=== PATIENT | male | born 1960 | race Caucasian/White ===

== ENCOUNTER 2017-04-15 09:34 | Emergency (ER) | payer MEDICARE, MEDICAID, SELFPAY | END 2017-04-15 14:55 | disposition still patient (30) | PROVIDERS: Emergency Provider Emergency Medicine; Family Provider Family Medicine; Visit Provider Emergency Medicine | DX: J11.00 Influenza due to unidentified influenza virus with unspecified type of pneumonia (principal); R04.2 Hemoptysis; E87.2 Acidosis; C34.90 Malignant neoplasm of unspecified part of unspecified bronchus or lung; J96.91 Respiratory failure, unspecified with hypoxia; Z87.891 Personal history of nicotine dependence; I48.91 Unspecified atrial fibrillation; Z79.01 Long term (current) use of anticoagulants; Z79.51 Long term (current) use of inhaled steroids; Z79.899 Other long term (current) drug therapy; Z79.82 Long term (current) use of aspirin; Z88.6 Allergy status to analgesic agent; I10 Essential (primary) hypertension; E78.5 Hyperlipidemia, unspecified; J44.9 Chronic obstructive pulmonary disease, unspecified | CPT/HCPCS: 36415; 71020; 71275; 80053; 82803; 83605; 83880; 84484; 85025; 87040; 87205; 87275; 87276; 93005; 93041; 94640; 96365; 96367; 96375; 99285; J1956; J3370; Q9967 ==

== ENCOUNTER → 2017-04-25 | Outpatient (CLI) | payer MEDICARE, MEDICAID, SELFPAY | PROVIDERS: Family Provider Family Medicine; Visit Provider Family Medicine | DX: C34.92 Malignant neoplasm of unspecified part of left bronchus or lung (principal) | CPT/HCPCS: 71020 ==

== ENCOUNTER 2017-05-08 11:45 | Outpatient (CLI) | payer MEDICARE, MEDICAID, SELFPAY ==
[2017-05-08 11:47] VITALS: BMI 31.8
[2017-05-08 12:29] LABS: Basophils % 0.5 % (0.1-2.0); Eosinophils # 0.3 K/mm3 (0.0-0.4); Eosinophils % 3.2 % (0.1-12.0); Hematocrit 41.7 % (42.0-52.0); Hemoglobin 13.6 g/dL (14.1-18.0); Lymphocytes # 1.4 K/mm3 (0.7-4.5); Lymphocytes % 16.7 K/mm3 (10-50); Mean Corpuscular HGB Conc 32.6 g/dL (31.8-35.4); Mean Platelet Volume 7.2 fl (7.4-10.4); Monocytes # 0.6 K/mm3 (0.1-1.0); Monocytes % 7.3 % (1.7-9.3); Neutrophils % 72.4 % (37.0-80.0); Platelet Count 281 K/mm3 (142-424); Red Blood Count 4.85 M/mm3 (4.60-6.20); Red Cell Distribution Width 13.7 % (11.5-17.5); White Blood Count 8.3 K/mm3 (4.8-10.8)
[2017-05-08 12:40] LABS: Alanine Aminotransferase 36 U/L (12-78); Albumin Level 2.7 gm/dL (3.4-5.0); Albumin/Globulin Ratio 0.6 (1.1-1.8); Alkaline Phosphatase 75 U/L (46-116); Anion Gap 13.4 mEq/L (5-15); Aspartate Amino Transferase 18 U/L (15-37); Bilirubin,Total 0.6 mg/dL (0.2-1.0); Blood Urea Nitrogen 11 mg/dL (7-18); Calcium 8.7 mg/dL (8.5-10.1); Carbon Dioxide 25 mmol/L (21.0-32.0); Chloride 101 mmol/L (98-107); Creatinine Clearance Estimated 128 mL/min (0-300); Creatinine,Serum 0.92 mg/dL (0.70-1.30); Estimated Glomerular Filt Rate 84 ml/min (>60); GFR (African American) 102 ML/MIN (>60); Globulin 4.3 gm/dl (1.3-3.2); Glucose 96 mg/dL (74-106); Potassium 4.4 mmoL/L (3.5-5.1); Sodium 135 mmol/L (136-145)
[2017-05-08 14:30] VITALS: BP 126/66; PULSE 87; RESP 18; TEMP 37; O2SAT 94
[2017-05-08 14:45] VITALS: BP 115/61; PULSE 85; RESP 18; O2SAT 94
[2017-05-08 15:00] VITALS: BP 112/65; PULSE 85; RESP 18; O2SAT 91
[2017-05-08 15:15] VITALS: BP 118/64; PULSE 77; RESP 20; O2SAT 91
[2017-05-08 15:30] VITALS: BP 113/59; PULSE 81; RESP 18; O2SAT 91
== END 2017-05-08 15:41 | disposition home or self-care (01) ==
LOC: INF 16:06
PROVIDERS: Family Provider Family Medicine; PCP Family Medicine; Visit Provider Internal Medicine
DX: Z51.11 Encounter for antineoplastic chemotherapy; C34.32 Malignant neoplasm of lower lobe, left bronchus or lung
CPT/HCPCS: 80053; 85025; 96413; 96415; J9267; Q0166

== ENCOUNTER → 2017-05-16 16:04 | Outpatient (CLI) | payer MEDICARE, MEDICAID, SELFPAY ==
--- NOTE | 2017-05-16 16:09 | XR_ITS ---
XR chest 2V HISTORY: ITS.REASON: CARCINOMA OF LEFT LUNG, follow-up lung cancer ORDERING PHYSICIAN: Karey Lopez MD PATIENT AGE: 56 years COMPARISON: 04/25/2017 FINDINGS: The cardiomediastinal silhouette and pulmonary vascularity are within normal limits. Left hilum remains prominent Consolidation is once again noted involving the posterior aspect of the left upper lobe somewhat less prominent than when compared to the previous exam. Overall there is slight diffuse increased density of the left chest compared to the right with some minimal blunting of the left CP angle and posterior costophrenic sulcus. COPD changes. The right lung is clear with the exception of coarsening of the peribronchial markings/chronic obstructive bronchitis.. No acute bony abnormalities. IMPRESSION: 1. Persistent but slightly improved consolidation in the posterior segment of the left upper lobe. 2. COPD with chronic changes small left effusion 3. Prominence of the left hilum as before
== END ==
PROVIDERS: PCP Family Medicine; Visit Provider Family Medicine
DX: C34.92 Malignant neoplasm of unspecified part of left bronchus or lung (principal)
CPT/HCPCS: 71046

== ENCOUNTER 2017-05-23 14:43 | Inpatient (IN) | payer MEDICARE, MEDICAID, SELFPAY ==
[2017-05-23] VITALS (7 sets, daily range): BP systolic 100–148; BP diastolic 64–80; PULSE 92–99; RESP 22–26; TEMP 36.6–37.3; O2SAT 88–96; BMI 33.5; BMI 33.8
--- NOTE | 2017-05-23 14:58 | XR_ITS ---
XR chest portable HISTORY: ITS.REASON: SOA, cough, fever, low O2 Sat ORDERING PHYSICIAN: Kulwant Martinez MD PATIENT AGE: 56 years COMPARISON: 05/16/2017 FINDINGS: There is diffuse bilateral pneumonia which is worse compared to the previous exam. Consolidation or mass once again noted in the left upper lobe. Precordial loop recorder once again noted. Prior osteotomy right distal clavicle. There is a small left pleural effusion. IMPRESSION: Worsening bilateral pneumonia with persistent dense consolidation in or mass the left upper lobe. Small left pleural effusion
--- NOTE | 2017-05-23 15:00 | HMH.EDSOB ---
ED Disposition Clinical Impression: Acute exacerbation of chronic obstructive airways disease Bilateral pneumonia Qualifiers: Pneumonia type: due to unspecified organism Lung location: unspecified part of lung Qualified Code(s): J18.9 - Pneumonia, unspecified organism Community acquired pneumonia Qualifiers: Laterality: unspecified laterality Qualified Code(s): J18.9 - Pneumonia, unspecified organism Disposition: Admitted As Inpatient Condition on Discharge: Serious Time of Disposition: 08:04 - Critical Care Critical Care Time: No Attestation: On , the high probability of a clinically significant, sudden or life threatening deterioration of the following system(s) required my full and direct attention, intervention and personal management. The time I documented below is in addition to time spent performing reported procedures but includes the following listed in this critical care notation. Medical Decision Making - Medical Records Medical records reviewed: Yes: I reviewed the patient's medical records. Vital Signs: 05/23/17 14:47 05/23/17 15:44 05/23/17 18:30 Temperature 98.2 F 99.1 F Temperature Source Oral Pulse Rate 95 H Pulse Rate [Right Brachial] 99 H 96 H Respiratory Rate 26 H 24 26 H Blood Pressure 100/80 Blood Pressure [Right Arm] 138/76 123/67 Blood Pressure Mean [Right Arm] 96 85 Blood Pressure Source [Right Arm] Automatic Cuff Automatic Cuff Blood Pressure Position [Right Arm] Sitting Sitting 02 Sat by Pulse Oximetry 88 L 96 Oxygen Delivery Method Nasal Cannula Nasal Cannula Nasal Cannula Oxygen Flow Rate (LPM) 10 10 10 - Lab Data Lab results reviewed: Yes: I reviewed the patient's lab results. Lab Results 05/23/17 14:55: WBC 6.7, RBC 4.69, Hgb 13.1 L, Hct 39.9 L, MCV 85.1, MCH 28.0, MCHC 32.9, RDW 14.5, Plt Count 328, MPV 7.8, Neut % (Auto) 80.4 H, Lymph % (Auto) 12.7, [place] % (Auto) 5.4, Eos % (Auto) 1.2, Baso % (Auto) 0.3, Neut # (Auto) 5.4, Lymph # (Auto) 0.9, [place] # (Auto) 0.4, Eos # (Auto) 0.1, Baso # (Auto) 0.0 05/23/17 14:55: Sodium 137, Potassium 3.8, Chloride 102, Carbon Dioxide 21, Anion Gap 17.8 H, BUN 11, Creatinine 0.94, Estimated Creat Clear 132, Estimated GFR 82, Est GFR ( Amer) 100, Glucose 100, Calcium 8.6, Total Bilirubin 1.0, AST 34, ALT 23, Alkaline Phosphatase 118 H, Total Protein 7.2, Albumin 2.3 L, Globulin 4.9 H, Albumin/Globulin Ratio 0.5 L 05/23/17 14:59: Specimen Source R brachial, O2 % 11 lpm, ABG pH 7.45, ABG pCO2 29.8 L, ABG pO2 86.9, ABG HCO3 20.3 L, ABG Total CO2 21.3 L, ABG O2 Saturation 96, ABG Base Excess -3.6 L, Shreyas Test N/a 05/23/17 15:45: Lactic Acid 1.8 Result diagrams: 05/31/17 09:14 05/31/17 09:14 Orders (Tests/Meds): ED MEDICATIONS Generic Name Dose Route Start Last Admin Trade Name Carol PRN Reason Stop Dose Admin Albuterol/Ipratropium 3 ml 05/24/17 07:43 06/01/17 06:30 Duoneb 3ml Neb IH 06/22/17 20:59 3 ml Q6RT KELBY Administration Aspirin 81 mg 05/23/17 21:00 05/31/17 20:10 Aspirin 81mg Enteric Coated Tablet PO 06/22/17 20:59 81 mg HS KELBY Administration Bisoprolol Fumarate 10 mg 05/29/17 09:00 05/31/17 09:08 Zebeta 5mg Tablet PO 06/28/17 08:59 10 mg DAILY KELBY Administration Digoxin 125 mcg 05/27/17 09:00 05/31/17 09:09 Digoxin 0.125mg Tablet PO 06/26/17 08:59 125 mcg DAILY KELBY Administration Diltiazem HCl 240 mg 05/27/17 09:00 05/31/17 09:09 Cardizem Er 240mg Capsule PO 06/26/17 08:59 240 mg DAILY KELBY Administration Fentanyl 25 mcg 05/25/17 09:00 05/31/17 10:38 Fentanyl 25mcg/Patch TD 06/24/17 08:59 25 mcg Q72H KELBY Administration Furosemide 40 mg 05/27/17 09:15 05/31/17 15:31 Lasix 40mg/4ml Vial IV 06/26/17 09:14 40 mg BIDL KELBY Administration Gabapentin 600 mg 05/23/17 21:00 05/31/17 20:10 Neurontin 600mg Tablet PO 06/22/17 20:59 600 mg QID KELBY Administration Lactated Ringer's 1,000 mls @ 50 mls/hr 05/23/17 18:58
--- NOTE | 2017-05-23 15:07 | ED_ITS ---
ED Disposition Clinical Impression: Acute exacerbation of chronic obstructive airways disease Bilateral pneumonia Qualifiers: Pneumonia type: due to unspecified organism Lung location: unspecified part of lung Qualified Code(s): J18.9 - Pneumonia, unspecified organism Community acquired pneumonia Qualifiers: Laterality: unspecified laterality Qualified Code(s): J18.9 - Pneumonia, unspecified organism Disposition: Admitted As Inpatient Condition on Discharge: Serious Time of Disposition: 08:04 - Critical Care Critical Care Time: No Attestation: On , the high probability of a clinically significant, sudden or life threatening deterioration of the following system(s) required my full and direct attention, intervention and personal management. The time I documented below is in addition to time spent performing reported procedures but includes the following listed in this critical care notation. Medical Decision Making - Medical Records Medical records reviewed: Yes: I reviewed the patient's medical records. Vital Signs: 05/23/17 14:47 05/23/17 15:44 05/23/17 18:30 Temperature 98.2 F 99.1 F Temperature Source Oral Pulse Rate 95 H Pulse Rate [Right Brachial] 99 H 96 H Respiratory Rate 26 H 24 26 H Blood Pressure 100/80 Blood Pressure [Right Arm] 138/76 123/67 Blood Pressure Mean [Right Arm] 96 85 Blood Pressure Source [Right Arm] Automatic Cuff Automatic Cuff Blood Pressure Position [Right Arm] Sitting Sitting 02 Sat by Pulse Oximetry 88 L 96 Oxygen Delivery Method Nasal Cannula Nasal Cannula Nasal Cannula Oxygen Flow Rate (LPM) 10 10 10 - Lab Data Lab results reviewed: Yes: I reviewed the patient's lab results. Lab Results 05/23/17 14:55: WBC 6.7, RBC 4.69, Hgb 13.1 L, Hct 39.9 L, MCV 85.1, MCH 28.0, MCHC 32.9, RDW 14.5, Plt Count 328, MPV 7.8, Neut % (Auto) 80.4 H, Lymph % (Auto ) 12.7, [place] % (Auto) 5.4, Eos % (Auto) 1.2, Baso % (Auto) 0.3, Neut # (Auto) 5.4, Lymph # (Auto) 0.9, [place] # (Auto) 0.4, Eos # (Auto) 0.1, Baso # (Auto) 0.0 05/23/17 14:55: Sodium 137, Potassium 3.8, Chloride 102, Carbon Dioxide 21, Anion Gap 17.8 H, BUN 11, Creatinine 0.94, Estimated Creat Clear 132, Estimated GFR 82, Est GFR ( Amer) 100, Glucose 100, Calcium 8.6, Total Bilirubin 1.0, AST 34, ALT 23, Alkaline Phosphatase 118 H, Total Protein 7.2, Albumin 2.3 L, Globulin 4.9 H, Albumin/Globulin Ratio 0.5 L 05/23/17 14:59: Specimen Source R brachial, O2 % 11 lpm, ABG pH 7.45, ABG pCO2 29.8 L, ABG pO2 86.9, ABG HCO3 20.3 L, ABG Total CO2 21.3 L, ABG O2 Saturation 96, ABG Base Excess -3.6 L, Shreyas Test N/a 05/23/17 15:45: Lactic Acid 1.8 Result diagrams: 05/31/17 09:14 05/31/17 09:14 Orders (Tests/Meds): ED MEDICATIONS Generic Name Dose Route Start Last Admin Trade Name Carol PRN Reason Stop Dose Admin Albuterol/Ipratropium 3 ml 05/24/17 07:43 06/01/17 06:30 Duoneb 3ml Neb IH 06/22/17 20:59 3 ml Q6RT KELBY Administration Aspirin 81 mg 05/23/17 21:00 05/31/17 20:10 Aspirin 81mg Enteric Coated Tablet PO 06/22/17 20:59 81 mg HS KELBY Administration Bisoprolol Fumarate 10 mg 05/29/17 09:00 05/31/17 09:08 Zebeta 5mg Tablet PO 06/28/17 08:59 10 mg DAILY KELBY Administration Digoxin 125 mcg 05/27/17 09:00 05/31/17 09:09 Digoxin 0.125mg Tablet PO 06/26/17 08:59 125 mcg DAILY KELBY Administration
[2017-05-23 15:35] LABS: Alanine Aminotransferase 23 U/L (12-78); Albumin Level 2.3 gm/dL (3.4-5.0); Albumin/Globulin Ratio 0.5 (1.1-1.8); Alkaline Phosphatase 118 U/L (46-116); Anion Gap 17.8 mEq/L (5-15); Aspartate Amino Transferase 34 U/L (15-37); Blood Urea Nitrogen 11 mg/dL (7-18); Calcium 8.6 mg/dL (8.5-10.1); Carbon Dioxide 21 mmol/L (21.0-32.0); Chloride 102 mmol/L (98-107); Creatinine Clearance Estimated 132 mL/min (0-300); Creatinine,Serum 0.94 mg/dL (0.70-1.30); Estimated Glomerular Filt Rate 82 ml/min (>60); GFR (African American) 100 ML/MIN (>60); Globulin 4.9 gm/dl (1.3-3.2); Glucose 100 mg/dL (74-106); Potassium 3.8 mmoL/L (3.5-5.1); Sodium 137 mmol/L (136-145); Total Protein,Serum 7.2 gm/dL (6.4-8.2)
[2017-05-23 15:38] LABS: ABG Base Excess -3.6 mmol/L (-2.4-2.3); ABG HCO3 20.3 mmhg (22.0-26.0); ABG Oxygen Saturation 96 % (90-100); ABG PCO2 29.8 mmhg (35.0-45.0); ABG PH 7.45 mmol/L (7.35-7.45); ABG PO2 86.9 mmhg (80-100); ABG TCO2 21.3 mmhg (23-27)
[2017-05-23 15:39] LABS: Source R BRACHIAL
--- NOTE | 2017-05-23 15:57 | PC.NURSE ---
O2 AT 10 LPM VIA CANNULA , IN HIS MOUTH PT CANT USE IN HIS NOSE
[2017-05-23 16:16] LABS: Lactic Acid 1.8 mmol/L (0.4-2.0)
[2017-05-23 16:22] LABS: Basophils % 0.3 % (0.1-2.0); Eosinophils # 0.1 K/mm3 (0.0-0.4); Eosinophils % 1.2 % (0.1-12.0); Hematocrit 39.9 % (42.0-52.0); Hemoglobin 13.1 g/dL (14.1-18.0); Lymphocytes # 0.9 K/mm3 (0.7-4.5); Lymphocytes % 12.7 K/mm3 (10-50); Mean Corpuscular HGB Conc 32.9 g/dL (31.8-35.4); Mean Corpuscular Volume 85.1 fl (80-94); Mean Platelet Volume 7.8 fl (7.4-10.4); Monocytes # 0.4 K/mm3 (0.1-1.0); Monocytes % 5.4 % (1.7-9.3); Neutrophils # 5.4 K/mm3 (1.8-7.8); Neutrophils % 80.4 % (37.0-80.0); Platelet Count 328 K/mm3 (142-424); Red Blood Count 4.69 M/mm3 (4.60-6.20); Red Cell Distribution Width 14.5 % (11.5-17.5); White Blood Count 6.7 K/mm3 (4.8-10.8)
--- NOTE | 2017-05-23 19:36 | P.PN_ITS ---
Internal Medicine - PN: Subj *Date: 05/23/17 *Time: 19:33 Interval history: This 36-year-old white male has a known lung carcinoma. He was hospitalized at [facility] recently with pneumonia. He has been receiving radiation and chemo treatments at . He presented in the office of [facility] today with extreme shortness of breath and hypoxia with a sat in the 70s. He was sent to the emergency room for stabilization. He was treated with IV steroids and supplemental oxygen. Oxygen came up to 90s but with the nasal O2 turned up to 10. He was started on Levaquin and vancomycin and Zosyn. He and his family report that he recently was doing better on a steroid taper but once the steroid taper had finished he resumed having fever and congestion. Exam Vital signs and Labs for Last 24 Hours: Temp Pulse Resp BP Pulse Ox 98.2 F 95 H 24 148/78 91 L 05/23/17 18:51 05/23/17 18:51 05/23/17 18:51 05/23/17 18:51 05/23/17 18:51 I & O for Last 24 hours: Intake & Output 05/21/17 05/22/17 05/23/17 05/24/17 11:59 11:59 11:59 11:59 Weight 242 lb 8 oz - Constitutional Comments: He is now on a Ventimask 50% and his saturations are holding above 90. His color is good and he is more comfortable. - *Routine HEENT Exam Comments: His tongue is fairly moist and he does not appear dehydrated. - *Routine Respiratory Exam Comments: He is tachypneic but moving air quite well at the present time. I hear some bibasilar rhonchi that are relatively subtle. - *Routine Cardiovascular Exam Present: RRR - *Routine Abdominal Exam Present: soft. Absent: tenderness - *Routine Extremities Exam Comments: He has greater than 2+ bilateral ankle edema. Assessment and Plan (1) Carcinoma, lung Current visit: Yes Status: Acute Category: Medical Code(s): C34.90 - Malignant neoplasm of unspecified part of unspecified bronchus or lung
--- NOTE | 2017-05-23 21:03 | PC.NURSE ---
Late entry; @ 1933 Dr Lopez here. No new orders
[2017-05-24] VITALS (11 sets, daily range): BP systolic 127–146; BP diastolic 68–83; PULSE 87–109; RESP 18–22; TEMP 35.8–36.9; O2SAT 85–90; BMI 34.3
--- NOTE | 2017-05-24 03:22 | PC.NURSE ---
PT RESTING AT THIS TIME. HE REMAINS ON 50%VENTI MASK WITH O2 SAT OF 90%. LUNGS ARE DIMINISHED IN THE BASES. PT REMAINS AFEBRILE AT THIS TIME. PT WAS NOTED TO HAVE 1+ EDEMA TO BLE. NO OTHER CONCENRS AT THIS TIME. WILL CONTINUE TO MONITOR.
[2017-05-24 04:23] LABS: ABG Base Excess -4.7 mmol/L (-2.4-2.3); ABG HCO3 19.6 mmhg (22.0-26.0); ABG Oxygen Saturation 92 % (90-100); ABG PCO2 29.8 mmhg (35.0-45.0); ABG PH 7.44 mmol/L (7.35-7.45); ABG PO2 64.6 mmhg (80-100); ABG TCO2 20.5 mmhg (23-27)
[2017-05-24 04:24] LABS: Allen's Test Acceptable
--- NOTE | 2017-05-24 04:42 | PC.NURSE ---
PT AMBULATED TO BATHROOM AND BECAME SOA. O2 SAT DECREASED TO 74 SHORTLY AND THEN INCREASED TO MID 80S. RT THERAPY WAS CALLED. PT O2 INCREASED TO 84% . BREATHING TX AND ABG ADMINISTERED. PT O2 RECOVERED. O2 IS 92% AT THIS TIME. PT IS RESTING IN BED AND WAS INSTRUCTED TO USE URINAL IN PLACE OF AMBULATING TO THE BATHROOM.
--- NOTE | 2017-05-24 04:55 | PC.NURSE ---
NURSE AWARE OF PATIENTS O2 LEVEL
[2017-05-24 06:54] LABS: Eosinophils % 0.2 % (0.1-12.0); Hematocrit 34.7 % (42.0-52.0); Lymphocytes # 0.4 K/mm3 (0.7-4.5); Lymphocytes % 4.2 K/mm3 (10-50); Mean Corpuscular HGB Conc 32.7 g/dL (31.8-35.4); Mean Corpuscular Hemoglobin 27.8 pg (27.0-31.2); Mean Platelet Volume 7.3 fl (7.4-10.4); Monocytes # 0.3 K/mm3 (0.1-1.0); Monocytes % 3.2 % (1.7-9.3); Neutrophils # 9.2 K/mm3 (1.8-7.8); Neutrophils % 92.4 % (37.0-80.0); Platelet Count 295 K/mm3 (142-424); Red Blood Count 4.08 M/mm3 (4.60-6.20); Red Cell Distribution Width 14.5 % (11.5-17.5)
[2017-05-24 07:11] LABS: Alanine Aminotransferase 24 U/L (12-78); Albumin Level 2.1 gm/dL (3.4-5.0); Albumin/Globulin Ratio 0.5 (1.1-1.8); Alkaline Phosphatase 111 U/L (46-116); Anion Gap 14.8 mEq/L (5-15); Aspartate Amino Transferase 37 U/L (15-37); Bilirubin,Total 0.6 mg/dL (0.2-1.0); Blood Urea Nitrogen 11 mg/dL (7-18); Calcium 8.1 mg/dL (8.5-10.1); Carbon Dioxide 23 mmol/L (21.0-32.0); Chloride 103 mmol/L (98-107); Creatinine Clearance Estimated 151 mL/min (0-300); Creatinine,Serum 0.84 mg/dL (0.70-1.30); Estimated Glomerular Filt Rate 94 ml/min (>60); GFR (African American) 114 ML/MIN (>60); Globulin 4.2 gm/dl (1.3-3.2); Glucose 162 mg/dL (74-106); Potassium 3.8 mmoL/L (3.5-5.1); Sodium 137 mmol/L (136-145); Total Protein,Serum 6.3 gm/dL (6.4-8.2)
[2017-05-24 07:18] LABS: MANUAL DIFFERENTIAL MANUAL DIFFERENTIAL (MANUAL DIFF)
--- NOTE | 2017-05-24 07:19 | P.CONPHA_ITS ---
[facility] Pharmacy VTE Monitoring - Patient Demographics Admission date: 05/23/17 Report Date: 05/24/17 Time: 07:18 Allergies/Adverse Reactions: Patient Allergies acetaminophen [From TYLENOL] Allergy (Mild, Verified 05/08/17 12:38) NA-NAUSEA/VOMITING Height: 1.8 m Weight: 111.3 kg Patient Problems: Current Active Problems Bilateral pneumonia (Acute) Community acquired pneumonia (Acute) Acute exacerbation of chronic obstructive airways disease (Acute) Carcinoma, lung (Acute) - VTE Risk Labs: VTE Related Lab Results Hgb 13.1 g/dL (14.1-18.0) L 05/23/17 14:55 Hct 39.9 % (42.0-52.0) L 05/23/17 14:55 Plt Count 328 K/mm3 (142-424) 05/23/17 14:55 BUN 11 mg/dL (7-18) 05/24/17 06:30 Creatinine 0.84 mg/dL (0.70-1.30) 05/24/17 06:30 Estimated Creat Clear 151 mL/min (0-300) 05/24/17 06:30 Was VTE Risk Assessment Performed: Yes VTE Score: 5 VTE Risk Level: Low Risk Clinical Trial Participant: No - Prophylaxis VTE Prophylaxis Ordered?: Yes Types of VTE Prophylaxis: TEDS Knee High
--- NOTE | 2017-05-24 07:24 | PC.NURSE ---
REPORT GIVEN TO Nery FLOYD W/C
[2017-05-24 07:33] LABS: Hemoglobin 11.4 g/dL (14.1-18.0)
--- NOTE | 2017-05-24 07:48 | PC.NURSE ---
REPORT HANDOFF TO CORRIE
--- NOTE | 2017-05-24 08:19 | HMH.HP ---
*Admission Date: 05/23/17 *Chief complaint: SOA, lung cancer *History of present illness: Mr. Laboy is a 36-year-old white male with known left sided lung carcinoma. He was hospitalized at [facility] recently with pneumonia. He has been receiving radiation and chemo treatments at . He presented in the office of [facility] yesterday with extreme shortness of breath and hypoxia with a sat in the 70s. He was sent to the emergency room for stabilization. He was treated with IV steroids and supplemental oxygen. His oxygen came up to the 90s but with the nasal O2 turned up to 10 liters. He was started on Levaquin and vancomycin and Zosyn. He and his family report that he recently was doing better on a steroid taper but once the steroid taper had finished, he resumed having fever and congestion. He has had a fever for the past 8 days and has been on motrin and levaquin 750mg. This am, he is still very SOA. He states he feels about the same as he did yesterday. It is even hard for him to speak d/t the SOA. He hurts all over. [facility] History Medical History: Reports:: Anxiety, Atrial Fibrillation, Cancer (left lung), Congestive Heart Failure, Chronic Obstructive Pulmonary Disease (COPD), Depression, Hypertension Denies:: Diabetes Mellitus Type 1, Diabetes Mellitus Type 2, MRSA Other Medical History: Reports: Chemotherapy, Hypothyroidism, Radiation Therapy Laterality Cases: Left: Arthroscopy Knee, Carotid Endarterectomy, Bilateral: Arthroscopy Shoulder Other Surgeries: Yes: Cancer Surgery, Other (Dental surgery, Left hip bone bx, lymph node bx, cystoscopy, largyngeal sx) Amputation: No Fractures: No Comment: Ablation for afib, Lung bx - *Social History Educational Level: Completed High School Smoking Status: Former smoker Tobacco Type: cigarettes # Packs/Day (cigarettes): 1 #Yrs smoked (if former smoker): 30 Alcohol Intake: never Alcohol Intake Frequency:: 0-2 drinks per day Substance Use Type: denies use Occupational Status: retired Housing: house Household Members: family - Psychiatric History Expresses thoughts of harming self/others: None Suicide Plan Description: No Plan Pschychiatric History:: Reports:: Anxiety, Depression *Family Hx:: Cancer, Heart Attack, Hypertension Review of Systems - Constitutional Reports body ache(s), Reports chills, Reports fatigue, Reports fever(s) - Eyes Denies blurry vision, Denies double vision - ENT Reports nasal congestion, Reports sore throat - *Cardiovascular Reports chest pain - *Respiratory Reports cough, Reports shortness of breath, Reports shortness of breath with activity, Reports wheezing - *Gastrointestinal Denies abdominal pain, Denies constipation, Denies loose stools, Denies nausea, Denies vomiting - *Genitourinary Denies difficulty urinating, Denies painful urination - *Musculoskeletal Reports back pain, Reports body aches - *Neurologic Reports headache(s), Reports dizziness Meds Home Medications Medication Instructions Recorded Confirmed Type atorvastatin 40 mg tablet 40 mg PO HS 05/01/17 05/24/17 History gabapentin 800 mg tablet 800 mg PO QID 05/01/17 05/23/17 History rivaroxaban 20 mg tablet 20 mg PO QDAY 05/01/17 05/23/17 History trazodone 100 mg tablet 100 mg PO QHS 05/01/17 05/23/17 History triamterene 50 mg capsule 50 mg PO QDAY 05/01/17 05/23/17 History Benzonatate [Benzonatate 100mg 100 mg PO TIDP PRN 05/24/17 05/24/17 History cap] Ibuprofen [Ibuprofen 600mg Tab] 600 mg PO QID 05/24/17 05/24/17 History Lidocaine HCl [Lidocaine viscous 5 ml PO DIRECTED 05/24/17 05/24/17 History 100mL bottle] Omeprazole [Omeprazole 20mg 20 mg PO DAILY 05/24/17 05/24/17 History Capsule] dilTIAZem HCl [Cartia Xt] 240 mg PO DAILY 05/24/17 05/24/17 History levoFLOXacin [Levofloxacin 750MG 750 mg PO DAILY 05/24/17 05/24/17 History Tablet] Allergies Allergy/AdvReac Type Severity Reaction Status Date / Time a
--- NOTE | 2017-05-24 08:22 | P.HP_ITS ---
*Admission Date: 05/23/17 *Chief complaint: SOA, lung cancer *History of present illness: Mr. Laboy is a 36-year-old white male with known left sided lung carcinoma. He was hospitalized at [facility] recently with pneumonia. He has been receiving radiation and chemo treatments at . He presented in the office of [facility] yesterday with extreme shortness of breath and hypoxia with a sat in the 70s. He was sent to the emergency room for stabilization. He was treated with IV steroids and supplemental oxygen. His oxygen came up to the 90s but with the nasal O2 turned up to 10 liters. He was started on Levaquin and vancomycin and Zosyn. He and his family report that he recently was doing better on a steroid taper but once the steroid taper had finished, he resumed having fever and congestion. He has had a fever for the past 8 days and has been on motrin and levaquin 750mg. This am, he is still very SOA. He states he feels about the same as he did yesterday. It is even hard for him to speak d/t the SOA. He hurts all over. [facility] History Medical History: Reports:: Anxiety, Atrial Fibrillation, Cancer (left lung), Congestive Heart Failure, Chronic Obstructive Pulmonary Disease (COPD), Depression, Hypertension Denies:: Diabetes Mellitus Type 1, Diabetes Mellitus Type 2, MRSA Other Medical History: Reports: Chemotherapy, Hypothyroidism, Radiation Therapy Laterality Cases: Left: Arthroscopy Knee, Carotid Endarterectomy, Bilateral: Arthroscopy Shoulder Other Surgeries: Yes: Cancer Surgery, Other (Dental surgery, Left hip bone bx, lymph node bx, cystoscopy, largyngeal sx) Amputation: No Fractures: No Comment: Ablation for afib, Lung bx - *Social History Educational Level: Completed High School Smoking Status: Former smoker Tobacco Type: cigarettes # Packs/Day (cigarettes): 1 #Yrs smoked (if former smoker): 30 Alcohol Intake: never Alcohol Intake Frequency:: 0-2 drinks per day Substance Use Type: denies use Occupational Status: retired Housing: house Household Members: family - Psychiatric History Expresses thoughts of harming self/others: None Suicide Plan Description: No Plan Pschychiatric History:: Reports:: Anxiety, Depression *Family Hx:: Cancer, Heart Attack, Hypertension Review of Systems - Constitutional Reports body ache(s), Reports chills, Reports fatigue, Reports fever(s) - Eyes Denies blurry vision, Denies double vision - ENT Reports nasal congestion, Reports sore throat - *Cardiovascular Reports chest pain - *Respiratory Reports cough, Reports shortness of breath, Reports shortness of breath with activity, Reports wheezing - *Gastrointestinal Denies abdominal pain, Denies constipation, Denies loose stools, Denies nausea, Denies vomiting - *Genitourinary Denies difficulty urinating, Denies painful urination - *Musculoskeletal Reports back pain, Reports body aches - *Neurologic Reports headache(s), Reports dizziness Meds Home Medications Medication Instructions Recorded Confirmed Type atorvastatin 40 mg tablet 40 mg PO HS 05/01/17 05/24/17 History gabapentin 800 mg tablet 800 mg PO QID 05/01/17 05/23/17 History rivaroxaban 20 mg tablet 20 mg PO QDAY 05/01/17 05/23/17 History trazodone 100 mg tablet 100 mg PO QHS 05/01/17 05/23/17 History triamterene 50 mg capsule 50 mg PO QDAY 05/01/17 05/23/17 History Benzonatate [Benzonatate 100mg 100 mg PO TIDP PRN 05/24/17 05/24/17 History cap] Ibuprofen [Ibuprofen 600mg Tab] 600 mg PO QID 04/30
[2017-05-24 09:01] LABS: Lymphocytes % 3 % (10-50); Monocytes % 5 % (2-9); Neutrophils % 92 % (42-76); Platelet Estimate Normal; Total Cells Counted 100
--- NOTE | 2017-05-24 11:23 | HMH.PHACONS ---
- Pharmacy Consult Date: 05/24/17 Time: 11:24 Referring provider: DR. MARR Reason for Consult:: VANCOMYCIN DOSING Allergies and ADEs:: Allergies Allergy/AdvReac Type Severity Reaction Status Date / Time acetaminophen [From TYLENOL] Allergy Mild NA-NAUSEA/V Verified 05/08/17 12:38 OMITING Home Medications:: Home Medications Medication Instructions Recorded Confirmed Type Albuterol Sulfate [Albuterol HFA 2 puffs IH QIDP PRN 05/24/17 05/24/17 History Inhaler] Atorvastatin Calcium [Atorvastatin 40 mg PO HS 05/24/17 05/24/17 History 40mg Tab] Benzonatate [Benzonatate 100mg 100 mg PO TIDP PRN 05/24/17 05/24/17 History cap] Cholecalciferol (Vitamin D3) 2,000 unit PO DAILY 05/24/17 05/24/17 History [Vitamin D3] Gabapentin [Gabapentin 800mg Tab] 800 mg PO QID 05/24/17 05/24/17 History Ibuprofen [Ibuprofen 600mg Tab] 600 mg PO QID 05/24/17 05/24/17 History LORazepam [Ativan 0.5mg tablet] 0.5 mg PO HS 05/24/17 05/24/17 History Lidocaine HCl [Lidocaine viscous 5 ml PO DIRECTED 05/24/17 05/24/17 History 100mL bottle] Lisinopril [Lisinopril 10mg Tab] 10 mg PO DAILY 05/24/17 05/24/17 History Multivitamin [Multivitamins] 1 each PO DAILY 05/24/17 05/24/17 History Omeprazole [Omeprazole 20mg 20 mg PO DAILY 05/24/17 05/24/17 History Capsule] Rivaroxaban [Xarelto] 20 mg PO DAILY 05/24/17 05/24/17 History Trazodone HCl 100 mg PO HS 05/24/17 05/24/17 History Triamterene/Hydrochlorothiazid 1 cap PO DAILY 05/24/17 05/24/17 History [Maxzide-25 tablet] dilTIAZem HCl [Cartia Xt] 240 mg PO DAILY 05/24/17 05/24/17 History fentaNYL [fentaNYL 25mcg/patch] 25 mcg TD Q72H 05/24/17 05/24/17 History levoFLOXacin [Levofloxacin 750MG 750 mg PO DAILY 05/24/17 05/24/17 History Tablet] Height: 1.8 m Weight: 111.3 kg Laboratory Results:: Laboratory Results - last 24 hr 05/24/17 04:20: O2 % 50%heriberto mask, ABG pH 7.44, ABG pCO2 29.8 L, ABG pO2 64.6 L, ABG HCO3 19.6 L, ABG Total CO2 20.5 L, ABG O2 Saturation 92, ABG Base Excess -4.7 L, Shreyas Test Acceptable 05/24/17 06:30: WBC 10.0 D, RBC 4.08 L, Hgb 11.4 L D, Hct 34.7 L, MCV 85.0, MCH 27.8, MCHC 32.7, RDW 14.5, Plt Count 295, MPV 7.3 L, Neut % (Auto) 92.4 H, Lymph % (Auto) 4.2 L, [place] % (Auto) 3.2, Eos % (Auto) 0.2, Baso % (Auto) 0.0 L, Neut # (Auto) 9.2 H, Lymph # (Auto) 0.4 L, [place] # (Auto) 0.3, Eos # (Auto) 0.0, Baso # (Auto) 0.0, Total Counted 100, Neutrophils % (Manual) 92 H, Lymphocytes % (Manual) 3 L, Monocytes % (Manual) 5, Platelet Estimate Normal, RBC Morphology Not Reportable 05/24/17 06:30: Sodium 137, Potassium 3.8, Chloride 103, Carbon Dioxide 23, Anion Gap 14.8, BUN 11, Creatinine 0.84, Estimated Creat Clear 151, Estimated GFR 94, Est GFR ( Amer) 114, Glucose 162 H D, Calcium 8.1 L, Total Bilirubin 0.6, AST 37, ALT 24, Alkaline Phosphatase 111, Total Protein 6.3 L, Albumin 2.1 L, Globulin 4.2 H, Albumin/Globulin Ratio 0.5 L Medical History: Reports:: Anxiety, Atrial Fibrillation, Cancer (left lung), Congestive Heart Failure, Chronic Obstructive Pulmonary Disease (COPD), Depression, Hypertension Denies:: Diabetes Mellitus Type 1, Diabetes Mellitus Type 2, MRSA Assessment and Plan (1) Bilateral pneumonia Current visit: Yes Status: Acute Qualifiers: Pneumonia type: due to unspecified organism Lung location: unspecified part of lung Qualified Code(s): J18.9 - Pneumonia, unspecified organism Category: Medical Code(s): J18.9 - Pneumonia, unspecified organism (2) Carcinoma, lung Current visit: Yes Status: Chronic Category: Medical Code(s): C34.90 - Malignant neoplasm of unspecified part of unspecified bronchus or lung (3) Hypertension Current visit: Yes Status: Chronic Category: Medical Code(s): I10 - Essential (primary) hypertension (4) Hypothyroidism Current visit: Yes Status: Chronic Category: Medical Code(s): E03.9 - Hypothyroidism, unspecified (5) COPD (chronic obstructive pulmonary dise
--- NOTE | 2017-05-24 16:10 | PC.NURSE ---
Pt resting in bed, no complaints this shift. Family at bedside. Venti mask in place at 50%. while eating pt is placed on NC but is unable to tolerated for long periods of time. call light is in reach. will continue to monitor
[2017-05-25] VITALS (13 sets, daily range): BP systolic 98–127; BP diastolic 70–90; PULSE 63–102; RESP 16–50; TEMP 36.4–36.9; O2SAT 87–97
--- NOTE | 2017-05-25 04:11 | PC.NURSE ---
PT O2 SATS DECLINED THESE EVENING. MD [facility] PILOT WAS NOTIFIED AND THE DECISION WAS MADE TO PLACE PT ON BIPAP. HE IS CURRENTLY ON 60%. O2 SAT IS 96%. HE HAS TOLERATED IT WELL. PT HAS DENIED ANY PAIN THIS SHIFT. V/S ARE STABLE AT THIS TIME. MEDICATIONS ADMINISTERED PER MAR. NO OTHER CONCERNS AT THIS TIME. WILL CONTINUE TO MONITOR.
--- NOTE | 2017-05-25 08:40 | HMH.ACPN2 ---
Internal Medicine - PN: Subj *Date: 05/25/17 *Time: 08:40 Interval history: Patient became hypoxic overnight and was started on BiPAP. He reports feeling better after BiPAP was started. He also needs a new Fentanyl patch today. Exam Vital signs and Labs for Last 24 Hours: Temp Pulse Resp BP Pulse Ox 98.2 F 78 22 98/70 94 L 05/25/17 07:34 05/25/17 07:34 05/25/17 07:34 05/25/17 07:34 05/25/17 07:34 Laboratory Results - last 24 hr 05/24/17 06:30: Total Counted 100, Neutrophils % (Manual) 92 H, Lymphocytes % (Manual) 3 L, Monocytes % (Manual) 5, Platelet Estimate Normal, RBC Morphology Not Reportable Vital Signs Temp Pulse Pulse Resp BP Pulse Ox 05/25/17 07:34 98.2 F 78 22 98/70 94 L 05/25/17 07:06 88 90 L 05/25/17 04:00 97.8 F 91 H 30 H 119/76 97 05/25/17 00:00 98.1 F 63 30 H 127/70 95 05/24/17 22:28 95 H 85 L 05/24/17 20:30 90 L 05/24/17 20:00 97.7 F 109 H 22 146/83 89 L 05/24/17 17:11 102 H 90 L 05/24/17 16:00 97.3 F L 106 H 18 144/77 88 L 05/24/17 11:34 96.4 F L 92 H 18 136/68 88 L 05/24/17 10:07 100 H 90 L Intake and Output 05/24/17 05/25/17 05/25/17 19:59 03:59 11:59 Intake Total 0 / 2040 Output Total 650 / 650 200 / 200 Balance 1390 / 1390 -200 / -200 Intake: Intake, Oral Amount 800 / 800 Intake, Total IV Amount 1240 / 1240 Piperacillin/Tazo 3.375 gm In 0 100 / 100 .9 % Sodium Chloride 100 ml @ 200 mls/hr IV Q6H [facility] Rx#: [id number] Pipercillin/Tazo 3.375 gm In 0. 50 / 50 9 % Sodium Chloride 50 ml @ 100 mls/hr IV Q6H [facility] Rx#:[id number] Ringers Solution,Lactated 1,000 590 / 590 ml @ 50 mls/hr IV .Q20H [facility] Rx #:[id number] Vancomycin HCl 2,000 mg In 0.9 250 / 250 % Sodium Chloride 250 ml @ 125 mls/hr IV Q24H [facility] Rx#:[id number] Vancomycin HCl 2,250 mg In 0.9 250 / 250 % Sodium Chloride 250 ml @ 125 mls/hr IV Q12H [facility] Rx#:[id number] Output: Output, Urine Amount 650 / 650 200 / 200 Other: Number of Unmeasured Voids 5 Weight 245 lb 5.992 oz Patient Weight 05/25/17 11:59 Weight 245 lb 5.992 oz I & O for Last 24 hours: Intake & Output 05/22/17 05/23/17 05/24/17 05/25/17 11:59 11:59 11:59 11:59 Intake Total 480 / 480 2040 / 2040 Output Total 1500 / 1500 850 / 850 Balance -1020 / -1020 1190 / 1190 Weight 245 lb 5.992 oz 245 lb 5.992 oz - Constitutional no acute distress - *Routine Respiratory Exam Present: accessory muscle use, wheezes (rare, overall fairly clear lungs) Assessment and Plan (1) Bilateral pneumonia Current visit: Yes Status: Acute Qualifiers: Pneumonia type: due to unspecified organism Lung location: unspecified part of lung Qualified Code(s): J18.9 - Pneumonia, unspecified organism Category: Medical Code(s): J18.9 - Pneumonia, unspecified organism (2) Carcinoma, lung Current visit: Yes Status: Chronic Category: Medical Code(s): C34.90 - Malignant neoplasm of unspecified part of unspecified bronchus or lung (3) Hypertension Current visit: Yes Status: Chronic Category: Medical Code(s): I10 - Essential (primary) hypertension (4) Hypothyroidism Current visit: Yes Status: Chronic Category: Medical Code(s): E03.9 - Hypothyroidism, unspecified (5) COPD (chronic obstructive pulmonary disease) Current visit: Yes Status: Chronic Category: Medical Code(s): J44.9 - Chronic obstructive pulmonary disease, unspecified (6) Paroxysmal A-fib Current visit: Yes Status: Chronic Category: Medical Code(s): I48.0 - Paroxysmal atrial fibrillation - Assessment and plan all Dx Assessment and Plan for all problems:: Continue current treatment, use BiPAP as needed.
--- NOTE | 2017-05-25 08:43 | P.PN_ITS ---
Internal Medicine - PN: Subj *Date: 05/25/17 *Time: 08:40 Interval history: Patient became hypoxic overnight and was started on BiPAP. He reports feeling better after BiPAP was started. He also needs a new Fentanyl patch today. Exam Vital signs and Labs for Last 24 Hours: Temp Pulse Resp BP Pulse Ox 98.2 F 78 22 98/70 94 L 05/25/17 07:34 05/25/17 07:34 05/25/17 07:34 05/25/17 07:34 05/25/17 07:34 Laboratory Results - last 24 hr 05/24/17 06:30: Total Counted 100, Neutrophils % (Manual) 92 H, Lymphocytes % ( Manual) 3 L, Monocytes % (Manual) 5, Platelet Estimate Normal, RBC Morphology Not Reportable Vital Signs Temp Pulse Pulse Resp BP Pulse Ox 05/25/17 07:34 98.2 F 78 22 98/70 94 L 05/25/17 07:06 88 90 L 05/25/17 04:00 97.8 F 91 H 30 H 119/76 97 05/25/17 00:00 98.1 F 63 30 H 127/70 95 05/24/17 22:28 95 H 85 L 05/24/17 20:30 90 L 05/24/17 20:00 97.7 F 109 H 22 146/83 89 L 05/24/17 17:11 102 H 90 L 05/24/17 16:00 97.3 F L 106 H 18 144/77 88 L 05/24/17 11:34 96.4 F L 92 H 18 136/68 88 L 05/24/17 10:07 100 H 90 L Intake and Output 05/24/17 05/25/17 05/25/17 19:59 03:59 11:59 Intake Total 0 / 2040 Output Total 650 / 650 200 / 200 Balance 1390 / 1390 -200 / -200 Intake: Intake, Oral Amount 800 / 800 Intake, Total IV Amount 1240 / 1240 Piperacillin/Tazo 3.375 gm In 0 100 / 100 .9 % Sodium Chloride 100 ml @ 200 mls/hr IV Q6H [facility] Rx#: [id number] Pipercillin/Tazo 3.375 gm In 0. 50 / 50 9 % Sodium Chloride 50 ml @ 100 mls/hr IV Q6H [facility] Rx#:[id number] Ringers Solution,Lactated 1,000 590 / 590 ml @ 50 mls/hr IV .Q20H [facility] Rx #:[id number] Vancomycin HCl 2,000 mg In 0.9 250 / 250 % Sodium Chloride 250 ml @ 125 mls/hr IV Q24H [facility] Rx#:[id number] Vancomycin HCl 2,250 mg In 0.9 250 / 250 % Sodium Chloride 250 ml @ 125 mls/hr IV Q12H [facility] Rx#:[id number] Output: Output, Urine Amount 650 / 650 200 / 200 Other: Number of Unmeasured Voids 5 Weight 245 lb 5.992 oz Patient Weight 05/25/17 11:59 Weight 245 lb 5.992 oz I & O for Last 24 hours: Intake & Output 05/22/17 05/23/17 05/24/17 05/25/17 11:59 11:59 11:59 11:59 Intake Total 480 / 480 2040 / 2040 Output Total 1500 / 1500 850 / 850 Balance -1020 / -1020 1190 / 1190 Weight 245 lb 5.992 oz 245 lb 5.992 oz - Constitutional no acute distress - *Routine Respiratory Exam Present: accessory muscle use, wheezes (rare, overall fairly clear lungs) Assessment and Plan (1) Bilateral pneumonia Current visit: Yes Status: Acute Qualifiers: Pneumonia type: due to unspecified organism Lung location: unspecified part of lung Qualified Code(s): J18.9 - Pneumonia, unspecified organism Category: Medical Code(s): J18.9 - Pneumonia, unspecified organism (2) Carcinoma, lung Current visit: Yes Status: Chronic Category: Medical Code(s): C34.90 - Malignant neoplasm of unspecified part of unspecified bron
[2017-05-25 09:11] LABS: Vancomycin,Trough 14.3 mcg/ml (10.0-20.0)
--- NOTE | 2017-05-25 09:38 | HMH.PHACONS ---
- Pharmacy Consult Date: 05/25/17 Time: 09:38 Referring provider: DR. MARR Reason for Consult:: VANCOMYCIN TROUGH LEVEL Allergies and ADEs:: Allergies Allergy/AdvReac Type Severity Reaction Status Date / Time acetaminophen [From TYLENOL] Allergy Mild NA-NAUSEA/V Verified 05/08/17 12:38 OMITING Home Medications:: Home Medications Medication Instructions Recorded Confirmed Type Albuterol Sulfate [Albuterol HFA 2 puffs IH QIDP PRN 05/24/17 05/24/17 History Inhaler] Atorvastatin Calcium [Atorvastatin 40 mg PO HS 05/24/17 05/24/17 History 40mg Tab] Benzonatate [Benzonatate 100mg 100 mg PO TIDP PRN 05/24/17 05/24/17 History cap] Cholecalciferol (Vitamin D3) 2,000 unit PO DAILY 05/24/17 05/24/17 History [Vitamin D3] Gabapentin [Gabapentin 800mg Tab] 800 mg PO QID 05/24/17 05/24/17 History Ibuprofen [Ibuprofen 600mg Tab] 600 mg PO QID 05/24/17 05/24/17 History LORazepam [Ativan 0.5mg tablet] 0.5 mg PO HS 05/24/17 05/24/17 History Lidocaine HCl [Lidocaine viscous 5 ml PO DIRECTED 05/24/17 05/24/17 History 100mL bottle] Lisinopril [Lisinopril 10mg Tab] 10 mg PO DAILY 05/24/17 05/24/17 History Multivitamin [Multivitamins] 1 each PO DAILY 05/24/17 05/24/17 History Omeprazole [Omeprazole 20mg 20 mg PO DAILY 05/24/17 05/24/17 History Capsule] Rivaroxaban [Xarelto] 20 mg PO DAILY 05/24/17 05/24/17 History Trazodone HCl 100 mg PO HS 05/24/17 05/24/17 History Triamterene/Hydrochlorothiazid 1 cap PO DAILY 05/24/17 05/24/17 History [Maxzide-25 tablet] dilTIAZem HCl [Cartia Xt] 240 mg PO DAILY 05/24/17 05/24/17 History fentaNYL [fentaNYL 25mcg/patch] 25 mcg TD Q72H 05/24/17 05/24/17 History levoFLOXacin [Levofloxacin 750MG 750 mg PO DAILY 05/24/17 05/24/17 History Tablet] Height: 1.8 m Weight: 111.3 kg Laboratory Results:: Laboratory Results - last 24 hr 05/25/17 08:24: Vancomycin Trough 14.3 Medical History: Reports:: Anxiety, Atrial Fibrillation, Cancer (left lung), Congestive Heart Failure, Chronic Obstructive Pulmonary Disease (COPD), Depression, Hypertension Denies:: Diabetes Mellitus Type 1, Diabetes Mellitus Type 2, MRSA Assessment and Plan (1) Bilateral pneumonia Current visit: Yes Status: Acute Qualifiers: Pneumonia type: due to unspecified organism Lung location: unspecified part of lung Qualified Code(s): J18.9 - Pneumonia, unspecified organism Category: Medical Code(s): J18.9 - Pneumonia, unspecified organism (2) Carcinoma, lung Current visit: Yes Status: Chronic Category: Medical Code(s): C34.90 - Malignant neoplasm of unspecified part of unspecified bronchus or lung (3) Hypertension Current visit: Yes Status: Chronic Category: Medical Code(s): I10 - Essential (primary) hypertension (4) Hypothyroidism Current visit: Yes Status: Chronic Category: Medical Code(s): E03.9 - Hypothyroidism, unspecified (5) COPD (chronic obstructive pulmonary disease) Current visit: Yes Status: Chronic Category: Medical Code(s): J44.9 - Chronic obstructive pulmonary disease, unspecified (6) Paroxysmal A-fib Current visit: Yes Status: Chronic Category: Medical Code(s): I48.0 - Paroxysmal atrial fibrillation - Assessment and plan all Dx Assessment and Plan for all problems:: BASED ON VANCOMYCIN TROUGH LEVEL AND PATIENT FACTORS, RECOMMEND CONTINUING VANCOMYCIN 2250 MG IV Q12H. PHARMACY WILL CONTINUE TO MONITOR DAILY AND ADJUST APPROPRIATE.
[2017-05-26] VITALS (21 sets, daily range): BP systolic 116–160; BP diastolic 58–106; PULSE 55–182; RESP 16–24; TEMP 35.8–36.9; O2SAT 85–96
--- NOTE | 2017-05-26 06:12 | PC.NURSE ---
PT HAS SLEPT. NO COMPLAINTS. CONTINUES ON 50 PERCENT BIPAP WITH SATS LOW TO MID 90'S. HOB ELEVATED. PT TAKES BIPAP OFF TO DRINK AND PLACES ON VENTI MASK, SATS DROP TO LOW 80'S. NO COUGH NOTED. VOIDING PER URINAL CLEAR YELLOW URINE WITH ADEQUATE OUTPUT NOTED.
[2017-05-26 07:19] LABS: Basophils % 0.1 % (0.1-2.0); Hematocrit 33.7 % (42.0-52.0); Hemoglobin 10.7 g/dL (14.1-18.0); Lymphocytes # 0.6 K/mm3 (0.7-4.5); Lymphocytes % 5.3 K/mm3 (10-50); Mean Corpuscular HGB Conc 31.9 g/dL (31.8-35.4); Mean Corpuscular Hemoglobin 27.6 pg (27.0-31.2); Mean Corpuscular Volume 86.6 fl (80-94); Mean Platelet Volume 8.2 fl (7.4-10.4); Monocytes # 0.4 K/mm3 (0.1-1.0); Neutrophils # 9.6 K/mm3 (1.8-7.8); Neutrophils % 90.6 % (37.0-80.0); Platelet Count 259 K/mm3 (142-424); Red Blood Count 3.89 M/mm3 (4.60-6.20); Red Cell Distribution Width 15.2 % (11.5-17.5); White Blood Count 10.6 K/mm3 (4.8-10.8)
[2017-05-26 07:21] LABS: MANUAL DIFFERENTIAL MANUAL DIFFERENTIAL (MANUAL DIFF)
[2017-05-26 07:22] LABS: Anion Gap 11.1 mEq/L (5-15); Blood Urea Nitrogen 19 mg/dL (7-18); Carbon Dioxide 30 mmol/L (21.0-32.0); Chloride 104 mmol/L (98-107); Creatinine Clearance Estimated 142 mL/min (0-300); Creatinine,Serum 0.89 mg/dL (0.70-1.30); Estimated Glomerular Filt Rate 88 ml/min (>60); GFR (African American) 106 ML/MIN (>60); Glucose 162 mg/dL (74-106); Potassium 5.1 mmoL/L (3.5-5.1); Sodium 140 mmol/L (136-145)
[2017-05-26 08:41] LABS: Lymphocytes % 7 % (10-50); Monocytes % 2 % (2-9); Neutrophils % 91 % (42-76); Total Cells Counted 100
[2017-05-26 08:42] LABS: Hypochromasia 1+; Platelet Estimate Normal
--- NOTE | 2017-05-26 14:06 | XR_ITS ---
XR chest portable HISTORY: Old pneumonia ITS.REASON: pneumonia ORDERING PHYSICIAN: Karey Lopez MD PATIENT AGE: 56 years COMPARISON: 05/23/2017 FINDINGS: There is cardiomegaly. Pulmonary vessels are somewhat prominent. There is diffuse bilateral alveolar opacification consistent with diffuse bilateral pneumonia which may be slightly improved. Small left effusion also suspected. Loop recorder device is present IMPRESSION: Persistent bilateral pneumonia slightly improved with CHF.
--- NOTE | 2017-05-26 14:19 | HMH.ACPN2 ---
Internal Medicine - PN: Subj *Date: 05/26/17 *Time: 14:19 Interval history: See previous note by Dr. Geronimo. The patient required BiPAP last night. He says he does not feel well. Is very alert. Exam Vital signs and Labs for Last 24 Hours: Temp Pulse Resp BP Pulse Ox 98.5 F 81 22 130/88 92 L 05/26/17 11:38 05/26/17 11:38 05/26/17 07:50 05/26/17 11:38 05/26/17 11:38 Laboratory Results - last 24 hr 05/26/17 06:15: WBC 10.6, RBC 3.89 L, Hgb 10.7 L, Hct 33.7 L, MCV 86.6, MCH 27.6, MCHC 31.9, RDW 15.2, Plt Count 259, MPV 8.2, Neut % (Auto) 90.6 H, Lymph % (Auto) 5.3 L, [place] % (Auto) 4.0, Eos % (Auto) 0.0 L, Baso % (Auto) 0.1, Neut # (Auto) 9.6 H, Lymph # (Auto) 0.6 L, [place] # (Auto) 0.4, Eos # (Auto) 0.0, Baso # (Auto) 0.0, Total Counted 100, Neutrophils % (Manual) 91 H, Lymphocytes % (Manual) 7 L, Monocytes % (Manual) 2, Platelet Estimate Normal, Hypochromasia 1+ 05/26/17 06:15: Sodium 140, Potassium 5.1 D, Chloride 104, Carbon Dioxide 30 D, Anion Gap 11.1, BUN 19 H D, Creatinine 0.89, Estimated Creat Clear 142, Estimated GFR 88, Est GFR ( Amer) 106, Glucose 162 H I & O for Last 24 hours: Intake & Output 05/24/17 05/25/17 05/26/17 05/27/17 11:59 11:59 11:59 11:59 Intake Total 480 / 480 2140 / 2140 1903 / 1903 Output Total 1500 / 1500 850 / 850 2200 / 2200 Balance -1020 / -1020 1290 / 1290 -297 / -297 Weight 245 lb 5.992 oz 245 lb 5.992 oz - Constitutional no acute distress - *Routine Respiratory Exam Comments: He is tachypneic. He is not in respiratory distress. He has bilaterally diminished breath sounds. He has some rales at the bases. His legs are still edematous. - *Routine Cardiovascular Exam Comments: Is he still in regular sinus rhythm? His rate is controlled. - *Routine Abdominal Exam Present: soft. Absent: tenderness - *Routine Extremities Exam Comments: 3+ ankle edema. Assessment and Plan (1) Bilateral pneumonia Current visit: Yes Status: Acute Qualifiers: Pneumonia type: due to unspecified organism Lung location: unspecified part of lung Qualified Code(s): J18.9 - Pneumonia, unspecified organism Category: Medical Code(s): J18.9 - Pneumonia, unspecified organism (2) Carcinoma, lung Current visit: Yes Status: Chronic Category: Medical Code(s): C34.90 - Malignant neoplasm of unspecified part of unspecified bronchus or lung (3) Hypertension Current visit: Yes Status: Chronic Category: Medical Code(s): I10 - Essential (primary) hypertension (4) Hypothyroidism Current visit: Yes Status: Chronic Category: Medical Code(s): E03.9 - Hypothyroidism, unspecified (5) COPD (chronic obstructive pulmonary disease) Current visit: Yes Status: Chronic Category: Medical Code(s): J44.9 - Chronic obstructive pulmonary disease, unspecified (6) Paroxysmal A-fib Current visit: Yes Status: Chronic Category: Medical Code(s): I48.0 - Paroxysmal atrial fibrillation (7) Respiratory failure Current visit: Yes Status: Acute Category: Medical Code(s): J96.90 - Respiratory failure, unspecified, unspecified whether with hypoxia or hypercapnia (8) Anemia of chronic disease Current visit: Yes Status: Chronic Category: Medical Code(s): D63.8 - Anemia in other chronic diseases classified elsewhere - Assessment and plan all Dx Assessment and Plan for all problems:: Check chest x-ray and EKG. Harsh BERGMAN.
--- NOTE | 2017-05-26 14:23 | P.PN_ITS ---
Internal Medicine - PN: Subj *Date: 05/26/17 *Time: 14:19 Interval history: See previous note by Dr. Geronimo. The patient required BiPAP last night. He says he does not feel well. Is very alert. Exam Vital signs and Labs for Last 24 Hours: Temp Pulse Resp BP Pulse Ox 98.5 F 81 22 130/88 92 L 05/26/17 11:38 05/26/17 11:38 05/26/17 07:50 05/26/17 11:38 05/26/17 11:38 Laboratory Results - last 24 hr 05/26/17 06:15: WBC 10.6, RBC 3.89 L, Hgb 10.7 L, Hct 33.7 L, MCV 86.6, MCH 27.6 , MCHC 31.9, RDW 15.2, Plt Count 259, MPV 8.2, Neut % (Auto) 90.6 H, Lymph % ( Auto) 5.3 L, [place] % (Auto) 4.0, Eos % (Auto) 0.0 L, Baso % (Auto) 0.1, Neut # ( Auto) 9.6 H, Lymph # (Auto) 0.6 L, [place] # (Auto) 0.4, Eos # (Auto) 0.0, Baso # ( Auto) 0.0, Total Counted 100, Neutrophils % (Manual) 91 H, Lymphocytes % (Manual ) 7 L, Monocytes % (Manual) 2, Platelet Estimate Normal, Hypochromasia 1+ 05/26/17 06:15: Sodium 140, Potassium 5.1 D, Chloride 104, Carbon Dioxide 30 D , Anion Gap 11.1, BUN 19 H D, Creatinine 0.89, Estimated Creat Clear 142, Estimated GFR 88, Est GFR ( Amer) 106, Glucose 162 H I & O for Last 24 hours: Intake & Output 05/24/17 05/25/17 05/26/17 05/27/17 11:59 11:59 11:59 11:59 Intake Total 480 / 480 2140 / 2140 1903 / 1903 Output Total 1500 / 1500 850 / 850 2200 / 2200 Balance -1020 / -1020 1290 / 1290 -297 / -297 Weight 245 lb 5.992 oz 245 lb 5.992 oz - Constitutional no acute distress - *Routine Respiratory Exam Comments: He is tachypneic. He is not in respiratory distress. He has bilaterally diminished breath sounds. He has some rales at the bases. His legs are still edematous. - *Routine Cardiovascular Exam Comments: Is he still in regular sinus rhythm? His rate is controlled. - *Routine Abdominal Exam Present: soft. Absent: tenderness - *Routine Extremities Exam Comments: 3+ ankle edema. Assessment and Plan (1) Bilateral pneumonia Current visit: Yes Status: Acute Qualifiers: Pneumonia type: due to unspecified organism Lung location: unspecified part of lung Qualified Code(s): J18.9 - Pneumonia, unspecified organism Category: Medical Code(s): J18.9 - Pneumonia, unspecified organism (2) Carcinoma, lung Current visit: Yes Status: Chronic Category: Medical Code(s): C34.90 - Malignant neoplasm of unspecified part of unspecified bronchus or lung (3) Hypertension Current visit: Yes Status: Chronic Category: Medical Code(s): I10 - Essential (primary) hypertension (4) Hypothyroidism Current visit: Yes Status: Chronic Category: Medical Code(s): E03.9 - Hypothyroidism, unspecified (5) COPD (chronic obstructive pulmonary disease) Current visit: Yes Status: Chronic Category: Medical Code(s): J44.9 - Chronic obstructive pulmonary disease, unspecified (6) Paroxysmal A-fib Current visit: Yes Status: Chronic Category: Medical Code(s): I48.0 - Paroxysmal atrial fibrillation (7) Respiratory failure Current visit: Yes Status: Acute Category: Medical Code(s): J96.90 - Respiratory failure, unspecified, unspecified whether with hypoxia or hypercapnia (8) Anemia of chronic disease Current visit: Yes Status: Chronic Category: Medical Code(s): D63.8 - Anemia in other chronic diseases classified elsewhere - Assessment and plan all Dx Assessment and Plan for all problems:: Check chest x-ray and EKG. Harsh BERGMAN.
--- NOTE | 2017-05-26 17:14 | PC.NURSE ---
1600 PATIENT TRANSFERED TO [place] FOR A.FIB WITH RVR. GIVEN 5MG BOLUS OF DILTIAZEM WITH NO RATE OR RHYTHM CHANGE. NOTIFIED DR SANTORO WHO IS COOPERATIVE EXTENSION AGENT FOR DR MARR AT 1620. PER DR SANTORO GIVE 10MG DILTIAZEM BOLUS, START DILTIAZEM GTT AT 10MG/HR TITRATE TO HR <100. DILTIAZEM GTT STARTED AT 1645 AT 10MG, TITRATED TO 15MG AT 1700 FOR HR >170, TITRATED TO 2OMG AT 1715 FOR HR >170. DR SANTORO CALLED AT 1720 TO CHECK ON PROGRESS. HE WAS INFORMED THERE WAS NO CHANGE AT THIS TIME. ORDERED ANOTHER 10MG DILTIZAEM BOLUS. WILL CONTINUE TO MONITOR
[2017-05-27] VITALS (28 sets, daily range): BP systolic 111–155; BP diastolic 62–90; PULSE 72–140; RESP 16–35; TEMP 36.3–36.4; O2SAT 77–98
--- NOTE | 2017-05-27 00:33 | PC.NURSE ---
DIGOXIN 500 MCG/2ML PULLED FROM [facility]. 1 ML WASTED. 250 MCG ADMINISTERED. VERIFIED WITH AMANDEEP RM.
[2017-05-27 06:44] LABS: Eosinophils % 0.1 % (0.1-12.0); Mean Corpuscular Hemoglobin 27.1 pg (27.0-31.2); Monocytes # 0.5 K/mm3 (0.1-1.0); Red Cell Distribution Width 14.9 % (11.5-17.5)
[2017-05-27 06:51] LABS: Basophils % 0.2 % (0.1-2.0); Hemoglobin 12.2 g/dL (14.1-18.0); Lymphocytes # 0.6 K/mm3 (0.7-4.5); Mean Corpuscular HGB Conc 31.3 g/dL (31.8-35.4); Mean Corpuscular Volume 86.7 fl (80-94); Monocytes % 3.3 % (1.7-9.3); Neutrophils # 13.3 K/mm3 (1.8-7.8); Neutrophils % 92.4 % (37.0-80.0); Platelet Count 295 K/mm3 (142-424); White Blood Count 14.4 K/mm3 (4.8-10.8)
[2017-05-27 06:52] LABS: MANUAL DIFFERENTIAL MANUAL DIFFERENTIAL (MANUAL DIFF)
[2017-05-27 06:57] LABS: Anion Gap 10.7 mEq/L (5-15); Blood Urea Nitrogen 22 mg/dL (7-18); Carbon Dioxide 34 mmol/L (21.0-32.0); Chloride 101 mmol/L (98-107); Creatinine Clearance Estimated 129 mL/min (0-300); Creatinine,Serum 0.98 mg/dL (0.70-1.30); Estimated Glomerular Filt Rate 79 ml/min (>60); GFR (African American) 95 ML/MIN (>60); Glucose 169 mg/dL (74-106); Potassium 4.7 mmoL/L (3.5-5.1); Sodium 141 mmol/L (136-145)
[2017-05-27 07:47] LABS: Lymphocytes % 9 % (10-50); Monocytes % 2 % (2-9); Neutrophils % 89 % (42-76); Platelet Estimate Normal; RBC Morphology Normal; Total Cells Counted 100
--- NOTE | 2017-05-27 08:11 | PC.NURSE ---
report received from carlos barton rn at 1822
--- NOTE | 2017-05-27 08:23 | PC.NURSE ---
Addendum entered by diane Orta RN 05/27/17 08:31: URINE OUPUT WAS 2200 INSTEAD OF 3600 Original Note: PT CONTINUES TO REMAIN ON 50% BIPAP. HE DESATS TO LOW 80S AND MID 70S WHEN OFF. PT REMAINS ON CARDIZEM GTT @ 20 MG/HR. PT HR IMPROVED THIS AM AND CARDIZEM WAS TITRATED DOWN TO 15 MG/HR, BUT PT HAD TO BE TITRATED BACK UP TO 20 MG/HR. HE CONTINUES TO BE AFIB ON TELEMETRY. B/P CONTINUES TO BE ELEVATED. PT WAS ADMINISTERED DIGOXIN 250 MCG X2. PT WAS ALSO ADMINISTERED 20 MG BOLUS OF CARDIZEM THIS SHIFT. URINE OUTPUT FOR THIS SHIFT WAS 3600 CC. NO OTHER CONCERNS AT THIS TIME. WILL CONTINUE TO MONITOR.
--- NOTE | 2017-05-27 08:30 | P.PN_ITS ---
Internal Medicine - PN: Subj *Date: 05/27/17 *Time: 08:30 Exam Vital signs and Labs for Last 24 Hours: Temp Pulse Resp BP Pulse Ox 97.4 F L 112 H 22 152/90 94 L 05/27/17 07:00 05/27/17 07:06 05/27/17 07:00 05/27/17 07:00 05/27/17 07:00 Laboratory Results - last 24 hr 05/26/17 06:15: Total Counted 100, Neutrophils % (Manual) 91 H, Lymphocytes % ( Manual) 7 L, Monocytes % (Manual) 2, Platelet Estimate Normal, Hypochromasia 1+ 05/27/17 06:05: WBC 14.4 H D, RBC 4.50 L, Hgb 12.2 L D, Hct 39.0 L, MCV 86.7, MCH 27.1, MCHC 31.3 L, RDW 14.9, Plt Count 295, MPV 8.0, Neut % (Auto) 92.4 H, Lymph % (Auto) 4.0 L, [place] % (Auto) 3.3, Eos % (Auto) 0.1, Baso % (Auto) 0.2, Neut # (Auto) 13.3 H, Lymph # (Auto) 0.6 L, [place] # (Auto) 0.5, Eos # (Auto) 0.0 , Baso # (Auto) 0.0, Total Counted 100, Neutrophils % (Manual) 89 H, Lymphocytes % (Manual) 9 L, Monocytes % (Manual) 2, Platelet Estimate Normal, RBC Morphology Normal 05/27/17 06:05: Sodium 141, Potassium 4.7, Chloride 101, Carbon Dioxide 34 H, Anion Gap 10.7, BUN 22 H, Creatinine 0.98, Estimated Creat Clear 129, Estimated GFR 79, Est GFR ( Amer) 95, Glucose 169 H I & O for Last 24 hours: Intake & Output 05/24/17 05/25/17 05/26/17 05/27/17 23:59 23:59 23:59 23:59 Intake Total 2620 / 2620 100 / 100 2983 / 2983 1448 / 1448 Output Total 2150 / 2150 1800 / 1800 3600 / 3600 2200 / 2200 Balance 470 / 470 -1700 / -1700 -617 / -617 -752 / -752 Weight 111.3 kg 111.3 kg 110.89 kg Assessment and Plan (1) Bilateral pneumonia Current visit: Yes Status: Acute Qualifiers: Pneumonia type: due to unspecified organism Lung location: unspecified part of lung Qualified Code(s): J18.9 - Pneumonia, unspecified organism Category: Medical Code(s): J18.9 - Pneumonia, unspecified organism (2) Carcinoma, lung Current visit: Yes Status: Chronic Category: Medical Code(s): C34.90 - Malignant neoplasm of unspecified part of unspecified bronchus or lung (3) Hypertension Current visit: Yes Status: Chronic Category: Medical Code(s): I10 - Essential (primary) hypertension (4) Hypothyroidism Current visit: Yes Status: Chronic Category: Medical Code(s): E03.9 - Hypothyroidism, unspecified (5) COPD (chronic obstructive pulmonary disease) Current visit: Yes Status: Chronic Category: Medical Code(s): J44.9 - Chronic obstructive pulmonary disease, unspecified (6) Paroxysmal A-fib Current visit: Yes Status: Chronic Category: Medical Code(s): I48.0 - Paroxysmal atrial fibrillation (7) Respiratory failure Current visit: Yes Status: Acute Category: Medical Code(s): J96.90 - Respiratory failure, unspecified, unspecified whether with hypoxia or hypercapnia (8) Anemia of chronic disease Current visit: Yes Status: Chronic Category: Medical Code(s): D63.8 - Anemia in other chronic diseases classified elsewhere The patient's infection will respond to the chosen ABx?: Yes Is the patient receiving the right drug, dose, and route?: Yes Could a more targeted ABx be ordered?: No
--- NOTE | 2017-05-27 08:32 | HMH.ACPN2 ---
Internal Medicine - PN: Subj *Date: 05/27/17 *Time: 08:32 Interval history: Events of last PM reviewed; PT in AT fib with rapid VR up to 190 and given boluses of cardizem and placed on a gtt; also received 2 dose of dig; this AM on O2 per NC while eating breakfast; O2 sats in the 80's while eating; ate everything for breakfast. having low back pain which is new for him; he has had for 2 days WBC's at 14.4 this AM; pt noted to be on BIPAP most of the time with O2 per mask/cannula with eating Exam Vital signs and Labs for Last 24 Hours: Temp Pulse Resp BP Pulse Ox 97.4 F L 112 H 22 152/90 94 L 05/27/17 07:00 05/27/17 07:06 05/27/17 07:00 05/27/17 07:00 05/27/17 07:00 Laboratory Results - last 24 hr 05/26/17 06:15: Total Counted 100, Neutrophils % (Manual) 91 H, Lymphocytes % (Manual) 7 L, Monocytes % (Manual) 2, Platelet Estimate Normal, Hypochromasia 1+ 05/27/17 06:05: WBC 14.4 H D, RBC 4.50 L, Hgb 12.2 L D, Hct 39.0 L, MCV 86.7, MCH 27.1, MCHC 31.3 L, RDW 14.9, Plt Count 295, MPV 8.0, Neut % (Auto) 92.4 H, Lymph % (Auto) 4.0 L, [place] % (Auto) 3.3, Eos % (Auto) 0.1, Baso % (Auto) 0.2, Neut # (Auto) 13.3 H, Lymph # (Auto) 0.6 L, [place] # (Auto) 0.5, Eos # (Auto) 0.0, Baso # (Auto) 0.0, Total Counted 100, Neutrophils % (Manual) 89 H, Lymphocytes % (Manual) 9 L, Monocytes % (Manual) 2, Platelet Estimate Normal, RBC Morphology Normal 05/27/17 06:05: Sodium 141, Potassium 4.7, Chloride 101, Carbon Dioxide 34 H, Anion Gap 10.7, BUN 22 H, Creatinine 0.98, Estimated Creat Clear 129, Estimated GFR 79, Est GFR ( Amer) 95, Glucose 169 H I & O for Last 24 hours: Intake & Output 05/24/17 05/25/17 05/26/17 05/27/17 11:59 11:59 11:59 11:59 Intake Total 480 / 480 2140 / 2140 2002 2528 / 2528 Output Total 1500 / 1500 850 / 850 2200 / 2200 5200 / 5200 Balance -1020 / -1020 1290 / 1290 -197 / -197 -2672 / -2672 Weight 245 lb 5.992 oz 245 lb 5.992 oz 244 lb 7.538 oz - Constitutional no acute distress Comments: sitting up in the bed eating breakfast with nasal O2 on - *Routine Respiratory Exam Absent: accessory muscle use Comments: sounds clear posteriorly - *Routine Abdominal Exam Present: soft, normoactive bowel sounds. Absent: tenderness - *Routine Extremities Exam Present: edema Comments: aces on bilateral lower legs - *Routine Neurological Exam Present: alert, oriented X3 Assessment and Plan (1) Bilateral pneumonia Current visit: Yes Status: Acute Qualifiers: Pneumonia type: due to unspecified organism Lung location: unspecified part of lung Qualified Code(s): J18.9 - Pneumonia, unspecified organism Category: Medical Code(s): J18.9 - Pneumonia, unspecified organism (2) Carcinoma, lung Current visit: Yes Status: Chronic Category: Medical Code(s): C34.90 - Malignant neoplasm of unspecified part of unspecified bronchus or lung (3) Hypertension Current visit: Yes Status: Chronic Category: Medical Code(s): I10 - Essential (primary) hypertension (4) Hypothyroidism Current visit: Yes Status: Chronic Category: Medical Code(s): E03.9 - Hypothyroidism, unspecified (5) COPD (chronic obstructive pulmonary disease) Current visit: Yes Status: Chronic Category: Medical Code(s): J44.9 - Chronic obstructive pulmonary disease, unspecified (6) Paroxysmal A-fib Current visit: Yes Status: Chronic Category: Medical Code(s): I48.0 - Paroxysmal atrial fibrillation (7) Respiratory failure Current visit: Yes Status: Acute Category: Medical Code(s): J96.90 - Respiratory failure, unspecified, unspecified whether with hypoxia or hypercapnia (8) Anemia of chronic disease Current visit: Yes Status: Chronic Category: Medical Code(s): D63.8 - Anemia in other chronic diseases classified elsewhere - Assessment and plan all Dx Assessment and Plan for all problems:: continue with current care; continue to try to wean from BIPA
--- NOTE | 2017-05-27 08:37 | P.PN_ITS ---
Internal Medicine - PN: Subj *Date: 05/27/17 *Time: 08:32 Interval history: Events of last PM reviewed; PT in AT fib with rapid VR up to 190 and given boluses of cardizem and placed on a gtt; also received 2 dose of dig; this AM on O2 per NC while eating breakfast; O2 sats in the 80's while eating; ate everything for breakfast. having low back pain which is new for him; he has had for 2 days WBC's at 14.4 this AM; pt noted to be on BIPAP most of the time with O2 per mask/cannula with eating Exam Vital signs and Labs for Last 24 Hours: Temp Pulse Resp BP Pulse Ox 97.4 F L 112 H 22 152/90 94 L 05/27/17 07:00 05/27/17 07:06 05/27/17 07:00 05/27/17 07:00 05/27/17 07:00 Laboratory Results - last 24 hr 05/26/17 06:15: Total Counted 100, Neutrophils % (Manual) 91 H, Lymphocytes % ( Manual) 7 L, Monocytes % (Manual) 2, Platelet Estimate Normal, Hypochromasia 1+ 05/27/17 06:05: WBC 14.4 H D, RBC 4.50 L, Hgb 12.2 L D, Hct 39.0 L, MCV 86.7, MCH 27.1, MCHC 31.3 L, RDW 14.9, Plt Count 295, MPV 8.0, Neut % (Auto) 92.4 H, Lymph % (Auto) 4.0 L, [place] % (Auto) 3.3, Eos % (Auto) 0.1, Baso % (Auto) 0.2, Neut # (Auto) 13.3 H, Lymph # (Auto) 0.6 L, [place] # (Auto) 0.5, Eos # (Auto) 0.0 , Baso # (Auto) 0.0, Total Counted 100, Neutrophils % (Manual) 89 H, Lymphocytes % (Manual) 9 L, Monocytes % (Manual) 2, Platelet Estimate Normal, RBC Morphology Normal 05/27/17 06:05: Sodium 141, Potassium 4.7, Chloride 101, Carbon Dioxide 34 H, Anion Gap 10.7, BUN 22 H, Creatinine 0.98, Estimated Creat Clear 129, Estimated GFR 79, Est GFR ( Amer) 95, Glucose 169 H I & O for Last 24 hours: Intake & Output 05/24/17 05/25/17 05/26/17 05/27/17 11:59 11:59 11:59 11:59 Intake Total 480 / 480 2140 / 2140 2002 2528 / 2528 Output Total 1500 / 1500 850 / 850 2200 / 2200 5200 / 5200 Balance -1020 / -1020 1290 / 1290 -197 / -197 -2672 / -2672 Weight 245 lb 5.992 oz 245 lb 5.992 oz 244 lb 7.538 oz - Constitutional no acute distress Comments: sitting up in the bed eating breakfast with nasal O2 on - *Routine Respiratory Exam Absent: accessory muscle use Comments: sounds clear posteriorly - *Routine Abdominal Exam Present: soft, normoactive bowel sounds. Absent: tenderness - *Routine Extremities Exam Present: edema Comments: aces on bilateral lower legs - *Routine Neurological Exam Present: alert, oriented X3 Assessment and Plan (1) Bilateral pneumonia Current visit: Yes Status: Acute Qualifiers: Pneumonia type: due to unspecified organism Lung location: unspecified part of lung Qualified Code(s): J18.9 - Pneumonia, unspecified organism Category: Medical Code(s): J18.9 - Pneumonia, unspecified organism (2) Carcinoma, lung Current visit: Yes Status: Chronic Category: Medical Code(s): C34.90 - Malignant neoplasm of unspecified part of unspecified bronchus or lung (3) Hypertension Current visit: Yes Status: Chronic Category: Medical Code(s): I10 - Essential (primary) hypertension (4) Hypothyroidism Current visit: Yes Status: Chronic Category: Medical Code(s): E03.9 - Hypothyroidism, unspecified (5) COPD (chronic obstructive pulmonary disease) Current visit: Yes Status: Chronic Category: Medical Code(s): J44.9 - Chronic obstructive pulmonary disease, unspecified (6) Paroxysmal A-fib Current visit: Yes Status: Chronic Category: Medical Code(s): I48.0 - Paroxysmal atrial fibrillation
--- NOTE | 2017-05-27 10:59 | HMH.CARDCON2 ---
History of Present Illness Consult date: 05/27/17 Requesting physician: Karey Lopez Consult reason: atrial fibrillation Chief complaint: SOA History of present illness: 56-year-old white male with history of [id number] coronary artery disease, mild cardiomyopathy with EF 45% by cardiac catheterization in 2014 was recently in 2017 diagnosed with squamous cell carcinoma of the left lung and has been undergoing chemotherapy and radiation. Patient was admitted last month at for combination of pneumonia and influenza which was treated with antibiotics and steroids. Upon the tapering off the steroids patient's fever and shortness of breath has returned and he subsequently was admitted on the of this month here and restarted on steroids along with antibiotics. Over the last 2 days the patient has developed recurrent atrial fibrillation with a rapid ventricular response requiring high-dose IV Cardizem for control. Cardiology consulted for evaluation recommendations. Review of Systems - Constitutional Reports fever(s) - *Cardiovascular Reports shortness of breath, Reports irregular heart rhythm - *Respiratory Reports shortness of breath - *Neurologic Reports headache(s), Reports dizziness [facility] [place] History Medical History: Reports:: Anxiety, Atrial Fibrillation, Cancer (left lung), Congestive Heart Failure, Chronic Obstructive Pulmonary Disease (COPD), Depression, Hypertension Denies:: Diabetes Mellitus Type 1, Diabetes Mellitus Type 2, MRSA Other Medical History: Reports: Chemotherapy, Hypothyroidism, Radiation Therapy Laterality Cases: Left: Arthroscopy Knee, Carotid Endarterectomy, Bilateral: Arthroscopy Shoulder Other Surgeries: Yes: Cancer Surgery, Other (Dental surgery, Left hip bone bx, lymph node bx, cystoscopy, largyngeal sx) Amputation: No Fractures: No - *Social History Educational Level: Completed High School Smoking Status: Former smoker Tobacco Type: cigarettes # Packs/Day (cigarettes): 1 #Yrs smoked (if former smoker): 30 Alcohol Intake: never Alcohol Intake Frequency:: 0-2 drinks per day Substance Use Type: denies use Occupational Status: retired Housing: house Household Members: family - Psychiatric History Expresses thoughts of harming self/others: None Suicide Plan Description: No Plan Pschychiatric History:: Reports:: Anxiety, Depression *Family Hx:: Cancer, Heart Attack, Hypertension Meds Home Medications Medication Instructions Recorded Confirmed Type Albuterol Sulfate [Albuterol HFA 2 puffs IH QIDP PRN 05/24/17 05/24/17 History Inhaler] Atorvastatin Calcium [Atorvastatin 40 mg PO HS 05/24/17 05/24/17 History 40mg Tab] Benzonatate [Benzonatate 100mg 100 mg PO TIDP PRN 05/24/17 05/24/17 History cap] Cholecalciferol (Vitamin D3) 2,000 unit PO DAILY 05/24/17 05/24/17 History [Vitamin D3] Gabapentin [Gabapentin 800mg Tab] 800 mg PO QID 05/24/17 05/24/17 History Ibuprofen [Ibuprofen 600mg Tab] 600 mg PO QID 05/24/17 05/24/17 History LORazepam [Ativan 0.5mg tablet] 0.5 mg PO HS 05/24/17 05/24/17 History Lidocaine HCl [Lidocaine viscous 5 ml PO DIRECTED 05/24/17 05/24/17 History 100mL bottle] Lisinopril [Lisinopril 10mg Tab] 10 mg PO DAILY 05/24/17 05/24/17 History Multivitamin [Multivitamins] 1 each PO DAILY 05/24/17 05/24/17 History Omeprazole [Omeprazole 20mg 20 mg PO DAILY 05/24/17 05/24/17 History Capsule] Rivaroxaban [Xarelto] 20 mg PO DAILY 05/24/17 05/24/17 History Trazodone HCl 100 mg PO HS 05/24/17 05/24/17 History Triamterene/Hydrochlorothiazid 1 cap PO DAILY 05/24/17 05/24/17 History [Maxzide-25 tablet] dilTIAZem HCl [Cartia Xt] 240 mg PO DAILY 05/24/17 05/24/17 History fentaNYL [fentaNYL 25mcg/patch] 25 mcg TD Q72H 05/24/17 05/24/17 History levoFLOXacin [Levofloxacin 750MG 750 mg PO DAILY 05/24/17 05/24/17 History Tablet] Allergies Allergy/AdvReac Type Severity Reaction Status Date / Time acetaminophen [From TYLENOL] Allergy
--- NOTE | 2017-05-27 11:03 | P.CONS_ITS ---
History of Present Illness Consult date: 05/27/17 Requesting physician: Karey Lopez Consult reason: atrial fibrillation Chief complaint: SOA History of present illness: 56-year-old white male with history of [id number] coronary artery disease , mild cardiomyopathy with EF 45% by cardiac catheterization in 2014 was recently in 2017 diagnosed with squamous cell carcinoma of the left lung and has been undergoing chemotherapy and radiation. Patient was admitted last month at for combination of pneumonia and influenza which was treated with antibiotics and steroids. Upon the tapering off the steroids patient's fever and shortness of breath has returned and he subsequently was admitted on the of this month here and restarted on steroids along with antibiotics. Over the last 2 days the patient has developed recurrent atrial fibrillation with a rapid ventricular response requiring high-dose IV Cardizem for control. Cardiology consulted for evaluation recommendations. Review of Systems - Constitutional Reports fever(s) - *Cardiovascular Reports shortness of breath, Reports irregular heart rhythm - *Respiratory Reports shortness of breath - *Neurologic Reports headache(s), Reports dizziness [facility] History Medical History: Reports:: Anxiety, Atrial Fibrillation, Cancer (left lung), Congestive Heart Failure, Chronic Obstructive Pulmonary Disease (COPD), Depression, Hypertension Denies:: Diabetes Mellitus Type 1, Diabetes Mellitus Type 2, MRSA Other Medical History: Reports: Chemotherapy, Hypothyroidism, Radiation Therapy Laterality Cases: Left: Arthroscopy Knee, Carotid Endarterectomy, Bilateral: Arthroscopy Shoulder Other Surgeries: Yes: Cancer Surgery, Other (Dental surgery, Left hip bone bx, lymph node bx, cystoscopy, largyngeal sx) Amputation: No Fractures: No - *Social History Educational Level: Completed High School Smoking Status: Former smoker Tobacco Type: cigarettes # Packs/Day (cigarettes): 1 #Yrs smoked (if former smoker): 30 Alcohol Intake: never Alcohol Intake Frequency:: 0-2 drinks per day Substance Use Type: denies use Occupational Status: retired Housing: house Household Members: family - Psychiatric History Expresses thoughts of harming self/others: None Suicide Plan Description: No Plan Pschychiatric History:: Reports:: Anxiety, Depression *Family Hx:: Cancer, Heart Attack, Hypertension Meds Home Medications Medication Instructions Recorded Confirmed Type Albuterol Sulfate [Albuterol HFA 2 puffs IH QIDP PRN 05/24/17 05/24/17 History Inhaler] Atorvastatin Calcium [Atorvastatin 40 mg PO HS 05/24/17 05/24/17 History 40mg Tab] Benzonatate [Benzonatate 100mg 100 mg PO TIDP PRN 05/24/17 05/24/17 History cap] Cholecalciferol (Vitamin D3) 2,000 unit PO DAILY 05/24/17 05/24/17 History [Vitamin D3] Gabapentin [Gabapentin 800mg Tab] 800 mg PO QID 05/24/17 05/24/17 History Ibuprofen [Ibuprofen 600mg Tab] 600 mg PO QID 05/24/17 05/24/17 History LORazepam [Ativan 0.5mg tablet] 0.5 mg PO HS 05/24/17 05/24/17 History Lidocaine HCl [Lidocaine viscous 5 ml PO DIRECTED 05/24/17 05/24/17 History 100mL bottle] Lisinopril [Lisinopril 10mg Tab] 10 mg PO DAILY 05/24/17 05/24/17 History Multivitamin [Multivitamins] 1 each PO DAILY 05/24/17 05/24/17 History Omeprazole [Omeprazole 20mg 20 mg PO DAILY 05/24/17 05/24/17 History Capsule] Rivaroxaban [Xarelto] 20 mg PO DAILY 05/24/17 05/24/17 History Trazod
--- NOTE | 2017-05-27 11:19 | CA_ITS ---
PROCEDURE: 2-D M-mode and color Doppler study INDICATIONS FOR THE TEST: Chest pain+ COPD+ Heart Murmur+ Tobacco Smokingex Palpitations+ Fatigue Syncope Edema+ Hypertension+Diabetes Mellitus Rheumatic Fever SOB+RICKETTS+Obesity+Hyperlipidemia+ Family History HD Additional History CAD, lung cancer, AFib, Tachycardia, Near syncope PATIENT INFORMATION HEIGHT: 70 WEIGHT: 244 GENDER: Male B/P: 152/90 2-D/M-MODE INTERPRETATION: 2-D MEASUREMENTS OBSERVED VALUES IN CMS Right Ventricular Dimension (RVDd) 2.9 Interventricular Septum (Thickness)(IVsd) 1.1 Left Ventricular Internal Dimensions(LVIDd) 4.6 Left Ventricular Posterior Wall (Thickness)(LVPWd) 1.1 Aortic Root 2.9 Aortic Cusp Separation 1.9 Left Atrial Dimensions (LAD) 3.9 2D 1. Technically difficult study because of the patient's factor and poor acoustic windows 2. The left atrium is mildly enlarged, left ventricle is normal size, probably preserved left ventricular systolic function visually estimated ejection fraction 45 % with no obvious regional wall motion abnormality in the visualized segments. 3. The right atrium and right ventricle are mildly enlarged, contractility of the right ventricle appears to be preserved. 4. The aortic valve is thickened and calcified leaflet continue to display mobility 5. The mitral valve leaflets are minimally thickened, there is mild mitral calcification present 6. The pulmonic valve is poorly visualized 7. The tricuspid valve appears to be grossly normal. 8. There is trivial pericardial effusion noted. DOPPLER INTERROGATION: Doppler interrogation of the aortic, mitral and tricuspid valvular presence of mild mitral and tricuspid regurgitation, tricuspid regurgitant jet velocity is insufficient for calculation of the right ventricular systolic pressure, diastolic parameters are inconclusive. CONCLUSION: 1. Technically difficult study because of the patient's factor and poor acoustic windows 2. The left atrium is mildly enlarged, left ventricle is normal size, visually estimated ejection fraction 45% with no obvious regional wall motion abnormality in the visualized segments. 3. Mildly enlarged right atrium and right ventricle, contractility of the right ventricle appears to be normal. 4. Thickened and calcified aortic valve without Doppler aortic stenosis aortic insufficiency. 5. Mild mitral and tricuspid regurgitation 6. No significant pericardial effusion noted.
--- NOTE | 2017-05-27 14:50 | PC.NURSE ---
pt cardizem drip was infusing at 20ml/hr at start of shift. order was received, and initiated after clarification with cardiology at 1030. pt was started on po diltiazem, digoxin, and bisoprolol. pt drip to be weaned off. pt heart rate at 1100 was noted to be 120-130. heart rate and pt were monitored. drip was able to slowly be weaned off by 1415. pt heart rate at 1452 is noted to be 84. will continue to monitor.
--- NOTE | 2017-05-27 19:24 | PC.NURSE ---
report given to meaghan laurent rn at 192
[2017-05-28] VITALS (22 sets, daily range): BP systolic 113–168; BP diastolic 48–95; PULSE 9–116; RESP 12–22; TEMP 36.2–37.2; O2SAT 87–98
--- NOTE | 2017-05-28 01:10 | PC.NURSE ---
PT IS A&OX3. HE CONTINUES WITH SOA AT REST. HE IS ON 50% BIPAP. HE HAS BEEN RESTING T/O THE NIGHT. HE REPORTS CHRONIC PAIN IN HIS BACK, ABDOMEN, AND LEGS. HE HAS BEEN VOIDING PER URINAL. URINE IS YELLOW, CLEAR. HE IS WEARING THADDEUS BANDAGES ON HIS LEGS THAT HE REPORTS HE WEARS BECAUSE OF SWELLING. TRACE EDEMA ON BLE.
--- NOTE | 2017-05-28 01:15 | PC.NURSE ---
PT IS A&OX3. HE IS NPO FOR A [facility] CONSULT. NSR ON TELEMETRY. HE RECEIVING PRN MEDICATION FOR REPORTS OF HIP PAIN. HE REPORTED THAT HIS CHEST PAIN FELT LIKE A PRESSURE. HIS SPOUSE IS AT THE BEDSIDE. HE ATE SOME SOUP UPON ADMISSION TO THE FLOOR. VSS.
--- NOTE | 2017-05-28 08:41 | HMH.ACPN2 ---
Internal Medicine - PN: Subj *Date: 05/28/17 *Time: 08:41 Interval history: He seems to be improving. His brother was visiting last night and he was quite interactive with his brother. BiPAP has been maintained. Remains in atrial fib. His heart rate is usually above 100. His blood pressure is stable. Echocardiogram is reviewed showing some left atrial enlargement along with some ventricular enlargement. Ejection fraction of 45% consistent with past studies. Note that his weight which had gotten up to 246 pounds is now down to 240 pounds after instituting twice daily Lasix. Exam Vital signs and Labs for Last 24 Hours: Temp Pulse Resp BP Pulse Ox 98.9 F 114 H 22 121/72 95 05/28/17 08:00 05/28/17 08:00 05/28/17 08:00 05/28/17 08:00 05/28/17 08:00 Selected Entries 05/23/17 14:47 05/23/17 20:11 05/23/17 21:48 Weight 240 lb 245 lb 5.992 oz 246 lb 2 oz 05/24/17 07:18 05/25/17 09:40 05/27/17 05:34 Weight 245 lb 5.992 oz 245 lb 5.992 oz 244 lb 7.538 oz 05/28/17 00:00 Weight 240 lb Laboratory Tests 05/27/17 05/27/17 06:05 06:05 WBC 14.4 H D Potassium 4.7 BUN 22 H Creatinine 0.98 I & O for Last 24 hours: Intake & Output 05/25/17 05/26/17 05/27/17 05/28/17 11:59 11:59 11:59 11:59 Intake Total 2140 / 2140 2002 / 2002 3108 / 3108 2971 / 2971 Output Total 850 / 850 2200 / 2200 6150 / 6150 6450 / 6450 Balance 1290 / 1290 -197 / -197 -3042 / -3042 -3479 / -3479 Weight 245 lb 5.992 oz 244 lb 7.538 oz 240 lb - Constitutional no acute distress Comments: Pap in place. He is alert and talkative. - *Routine Respiratory Exam Comments: Seems to be moving air well - *Routine Cardiovascular Exam Present: irregular rhythm Comments: Greater than 100 - *Routine Abdominal Exam Present: soft. Absent: tenderness - *Routine Neurological Exam Present: oriented X3, moving all extremities, normal speech. Absent: sensory deficit, motor deficit Assessment and Plan (1) Bilateral pneumonia Current visit: Yes Status: Acute Qualifiers: Pneumonia type: due to unspecified organism Lung location: unspecified part of lung Qualified Code(s): J18.9 - Pneumonia, unspecified organism Category: Medical Code(s): J18.9 - Pneumonia, unspecified organism (2) Carcinoma, lung Current visit: Yes Status: Chronic Category: Medical Code(s): C34.90 - Malignant neoplasm of unspecified part of unspecified bronchus or lung (3) Paroxysmal A-fib Current visit: Yes Status: Chronic Category: Medical Code(s): I48.0 - Paroxysmal atrial fibrillation (4) CAD (coronary artery disease) Current visit: Yes Status: Acute Category: Medical Code(s): I25.10 - Atherosclerotic heart disease of [place] coronary artery without angina pectoris (5) Respiratory failure Current visit: Yes Status: Acute Category: Medical Code(s): J96.90 - Respiratory failure, unspecified, unspecified whether with hypoxia or hypercapnia (6) Hypertension Current visit: Yes Status: Chronic Category: Medical Code(s): I10 - Essential (primary) hypertension (7) Hypothyroidism Current visit: Yes Status: Chronic Category: Medical Code(s): E03.9 - Hypothyroidism, unspecified (8) COPD (chronic obstructive pulmonary disease) Current visit: Yes Status: Chronic Category: Medical Code(s): J44.9 - Chronic obstructive pulmonary disease, unspecified (9) Anemia of chronic disease Current visit: Yes Status: Chronic Category: Medical Code(s): D63.8 - Anemia in other chronic diseases classified elsewhere - Assessment and plan all Dx Assessment and Plan for all problems:: Continue present course. The diuresis has helped. Continue antibiotics for pneumonia. Wean BiPAP as we are able to do.
--- NOTE | 2017-05-28 08:44 | P.PN_ITS ---
Internal Medicine - PN: Subj *Date: 05/28/17 *Time: 08:41 Interval history: He seems to be improving. His brother was visiting last night and he was quite interactive with his brother. BiPAP has been maintained. Remains in atrial fib. His heart rate is usually above 100. His blood pressure is stable. Echocardiogram is reviewed showing some left atrial enlargement along with some ventricular enlargement. Ejection fraction of 45% consistent with past studies. Note that his weight which had gotten up to 246 pounds is now down to 240 pounds after instituting twice daily Lasix. Exam Vital signs and Labs for Last 24 Hours: Temp Pulse Resp BP Pulse Ox 98.9 F 114 H 22 121/72 95 05/28/17 08:00 05/28/17 08:00 05/28/17 08:00 05/28/17 08:00 05/28/17 08:00 Selected Entries 05/23/17 14:47 05/23/17 20:11 05/23/17 21:48 Weight 240 lb 245 lb 5.992 oz 246 lb 2 oz 05/24/17 07:18 05/25/17 09:40 05/27/17 05:34 Weight 245 lb 5.992 oz 245 lb 5.992 oz 244 lb 7.538 oz 05/28/17 00:00 Weight 240 lb Laboratory Tests 05/27/17 05/27/17 06:05 06:05 WBC 14.4 H D Potassium 4.7 BUN 22 H Creatinine 0.98 I & O for Last 24 hours: Intake & Output 05/25/17 05/26/17 05/27/17 05/28/17 11:59 11:59 11:59 11:59 Intake Total 2140 / 2140 2002 / 2002 3108 / 3108 2971 / 2971 Output Total 850 / 850 2200 / 2200 6150 / 6150 6450 / 6450 Balance 1290 / 1290 -197 / -197 -3042 / -3042 -3479 / -3479 Weight 245 lb 5.992 oz 244 lb 7.538 oz 240 lb - Constitutional no acute distress Comments: Pap in place. He is alert and talkative. - *Routine Respiratory Exam Comments: Seems to be moving air well - *Routine Cardiovascular Exam Present: irregular rhythm Comments: Greater than 100 - *Routine Abdominal Exam Present: soft. Absent: tenderness - *Routine Neurological Exam Present: oriented X3, moving all extremities, normal speech. Absent: sensory deficit, motor deficit Assessment and Plan (1) Bilateral pneumonia Current visit: Yes Status: Acute Qualifiers: Pneumonia type: due to unspecified organism Lung location: unspecified part of lung Qualified Code(s): J18.9 - Pneumonia, unspecified organism Category: Medical Code(s): J18.9 - Pneumonia, unspecified organism (2) Carcinoma, lung Current visit: Yes Status: Chronic Category: Medical Code(s): C34.90 - Malignant neoplasm of unspecified part of unspecified bronchus or lung (3) Paroxysmal A-fib Current visit: Yes Status: Chronic Category: Medical Code(s): I48.0 - Paroxysmal atrial fibrillation (4) CAD (coronary artery disease) Current visit: Yes Status: Acute Category: Medical Code(s): I25.10 - Atherosclerotic heart disease of [place] coronary artery without angina pectoris (5) Respiratory failure Current visit: Yes Status: Acute Category: Medical Code(s): J96.90 - Respiratory failure, unspecified, unspecified whether with hypoxia or hypercapnia (6) Hypertension Current visit: Yes Status: Chronic Category: Medical Code(s): I10 - Essential (primary) hypertension (7) Hypothyroidism Current visit: Yes Status: Chronic Category: Medical Code(s): E03.9 - Hypothyroidism, unspecified (8) COPD (ch
--- NOTE | 2017-05-28 10:25 | HMH.CARDPN2 ---
Subjective PN (PG) Date: 05/28/17 Time: 10:25 Principal diagnosis: A.fib Interval history: The 6-year-old white male in bed using BiPAP in no acute distress. He continues to improve slowly. Telemetry continues to show atrial fibrillation with variable rate but around 100 beats per minute. PN Exam ([facility] Own[facility]) Vital signs: Temp Pulse Resp BP Pulse Ox 98.9 F 113 H 18 121/72 87 L 05/28/17 08:00 05/28/17 09:16 05/28/17 09:16 05/28/17 08:00 05/28/17 09:16 - Routine Respiratory Exam Present: diminished air movement - Routine Cardiovascular Exam Present: irregularly irregular A/P Progress Note ([facility]) (1) Paroxysmal A-fib Status: Chronic Assessment and plan: Patient is on bisoprolol, diltiazem and digoxin. Echocardiogram yesterday shows ejection fraction of about 45% (chronic) with left atrial size at 3.9 cm. No significant valvular heart disease. Will proceed with cardioversion later today or in a.m. Has remained on Xarelto therapy for greater than 30 days. Current Visit: Yes (2) CAD (coronary artery disease) Status: Acute Assessment and plan: Clinically stable. Current Visit: Yes (3) Bilateral pneumonia Status: Acute Current Visit: Yes (4) Carcinoma, lung Status: Chronic Assessment and plan: She still has remaining chemotherapy and radiation treatments pending. Current Visit: Yes (5) Hypertension Status: Chronic Current Visit: Yes (6) Hypothyroidism Status: Chronic Current Visit: Yes (7) COPD (chronic obstructive pulmonary disease) Status: Chronic Current Visit: Yes (8) Respiratory failure Status: Acute Current Visit: Yes (9) Anemia of chronic disease Status: Chronic Current Visit: Yes
--- NOTE | 2017-05-28 10:29 | P.PN_ITS ---
Subjective PN (PG) Date: 05/28/17 Time: 10:25 Principal diagnosis: A.fib Interval history: The 6-year-old white male in bed using BiPAP in no acute distress. He continues to improve slowly. Telemetry continues to show atrial fibrillation with variable rate but around 100 beats per minute. PN Exam ([facility]) Vital signs: Temp Pulse Resp BP Pulse Ox 98.9 F 113 H 18 121/72 87 L 05/28/17 08:00 05/28/17 09:16 05/28/17 09:16 05/28/17 08:00 05/28/17 09:16 - Routine Respiratory Exam Present: diminished air movement - Routine Cardiovascular Exam Present: irregularly irregular A/P Progress Note ([facility]) (1) Paroxysmal A-fib Status: Chronic Assessment and plan: Patient is on bisoprolol, diltiazem and digoxin. Echocardiogram yesterday shows ejection fraction of about 45% (chronic) with left atrial size at 3.9 cm. No significant valvular heart disease. Will proceed with cardioversion later today or in a.m. Has remained on Xarelto therapy for greater than 30 days. Current Visit: Yes (2) CAD (coronary artery disease) Status: Acute Assessment and plan: Clinically stable. Current Visit: Yes (3) Bilateral pneumonia Status: Acute Current Visit: Yes (4) Carcinoma, lung Status: Chronic Assessment and plan: She still has remaining chemotherapy and radiation treatments pending. Current Visit: Yes (5) Hypertension Status: Chronic Current Visit: Yes (6) Hypothyroidism Status: Chronic Current Visit: Yes (7) COPD (chronic obstructive pulmonary disease) Status: Chronic Current Visit: Yes (8) Respiratory failure Status: Acute Current Visit: Yes (9) Anemia of chronic disease Status: Chronic Current Visit: Yes
--- NOTE | 2017-05-28 17:36 | PC.NURSE ---
Lungs clear but diminished. O2 sats in the 90's while pt is on bipap. When bipap is removed pt's o2 sats drop to the 70's. He is showing afib on heart monitor w/heart rate running between 80-125. Appetite is good but it takes pt a while to complete meals as he gets SOB easily. No complaints verbalized. Will continue to monitor.
--- NOTE | 2017-05-28 19:13 | PC.NURSE ---
Report to given to S Call RN
[2017-05-29] VITALS (21 sets, daily range): BP systolic 115–145; BP diastolic 59–97; PULSE 69–136; RESP 14–24; TEMP 36.2–36.6; O2SAT 86–97
--- NOTE | 2017-05-29 03:03 | PC.NURSE ---
PT IS A&OX3. HE ATTEMPTED TO TRY AND SIT WITH 5LPM N/C. HIS O2 DROPPED TO 78% THEN INCREASED FOR A SHORT PERIOD TO 88%, AND THEN DROPPED BACK TO 78-79%. PT REPORTED FEELING LIGHTHEADED WHEN HIS O2 WAS AT 88%. HE WAS PLACED BACK ON 50% BIPAP. PT'S PULSE INCREASED TO 120S WHEN MOVING FROM A SITTING TO STANDING POSITION SO THAT HE COULD BE WEIGHED. HE IS VOIDING PER URINAL. URINE IS YELLOW, CLEAR. CONTINUES IN AFIB ON TELEMETRY WITH PULSE RANGING FROM 96-104.
--- NOTE | 2017-05-29 07:27 | HMH.ACPN2 ---
Internal Medicine - PN: Subj *Date: 05/29/17 *Time: 07:27 Interval history: Does not feel any better; did sleep; OOB to void; remains on BIPAP at 50%; eating well; bowels are moving; voiding QS remains in At Fib; plan is for cardioversion this AM Exam Vital signs and Labs for Last 24 Hours: Temp Pulse Resp BP Pulse Ox 97.1 F L 99 H 15 118/68 96 05/29/17 00:00 05/29/17 06:26 05/29/17 06:00 05/29/17 06:00 05/29/17 06:00 I & O for Last 24 hours: Intake & Output 05/26/17 05/27/17 05/28/17 05/29/17 11:59 11:59 11:59 11:59 Intake Total 2002 3108 / 3108 3311 / 3311 3279 / 3279 Output Total 2200 / 2200 6150 / 6150 8250 / 8250 3730 / 3730 Balance -197 / -197 -3042 / -3042 -4939 / -4939 -451 / -451 Weight 244 lb 7.538 oz 240 lb 220 lb Radiology Reports for the Last 24 Hours: 05/27/17 ECHO CONCLUSION: 1. Technically difficult study because of the patient's factor and poor acoustic windows 2. The left atrium is mildly enlarged, left ventricle is normal size, visually estimated ejection fraction 45% with no obvious regional wall motion abnormality in the visualized segments. 3. Mildly enlarged right atrium and right ventricle, contractility of the right ventricle appears to be normal. 4. Thickened and calcified aortic valve without Doppler aortic stenosis aortic insufficiency. 5. Mild mitral and tricuspid regurgitation 6. No significant pericardial effusion noted. - Constitutional no acute distress - *Routine Respiratory Exam Absent: wheezes Comments: decreased BS right base - *Routine Cardiovascular Exam Present: irregular rhythm - *Routine Abdominal Exam Present: soft, normoactive bowel sounds. Absent: tenderness, distended - *Routine Extremities Exam Comments: some ankle edema; much improved - *Routine Neurological Exam Present: alert, oriented X3 Assessment and Plan (1) Bilateral pneumonia Current visit: Yes Status: Acute Qualifiers: Pneumonia type: due to unspecified organism Lung location: unspecified part of lung Qualified Code(s): J18.9 - Pneumonia, unspecified organism Category: Medical Code(s): J18.9 - Pneumonia, unspecified organism (2) Carcinoma, lung Current visit: Yes Status: Chronic Category: Medical Code(s): C34.90 - Malignant neoplasm of unspecified part of unspecified bronchus or lung (3) Paroxysmal A-fib Current visit: Yes Status: Chronic Category: Medical Code(s): I48.0 - Paroxysmal atrial fibrillation (4) CAD (coronary artery disease) Current visit: Yes Status: Acute Category: Medical Code(s): I25.10 - Atherosclerotic heart disease of [place] coronary artery without angina pectoris (5) Respiratory failure Current visit: Yes Status: Acute Category: Medical Code(s): J96.90 - Respiratory failure, unspecified, unspecified whether with hypoxia or hypercapnia (6) Hypertension Current visit: Yes Status: Chronic Category: Medical Code(s): I10 - Essential (primary) hypertension (7) Hypothyroidism Current visit: Yes Status: Chronic Category: Medical Code(s): E03.9 - Hypothyroidism, unspecified (8) COPD (chronic obstructive pulmonary disease) Current visit: Yes Status: Chronic Category: Medical Code(s): J44.9 - Chronic obstructive pulmonary disease, unspecified (9) Anemia of chronic disease Current visit: Yes Status: Chronic Category: Medical Code(s): D63.8 - Anemia in other chronic diseases classified elsewhere - Assessment and plan all Dx Assessment and Plan for all problems:: continue current TX; continue to try and wean from BIPAP; plan is for cardioversion this AM
--- NOTE | 2017-05-29 07:31 | P.PN_ITS ---
Internal Medicine - PN: Subj *Date: 05/29/17 *Time: 07:27 Interval history: Does not feel any better; did sleep; OOB to void; remains on BIPAP at 50%; eating well; bowels are moving; voiding QS remains in At Fib; plan is for cardioversion this AM Exam Vital signs and Labs for Last 24 Hours: Temp Pulse Resp BP Pulse Ox 97.1 F L 99 H 15 118/68 96 05/29/17 00:00 05/29/17 06:26 05/29/17 06:00 05/29/17 06:00 05/29/17 06:00 I & O for Last 24 hours: Intake & Output 05/26/17 05/27/17 05/28/17 05/29/17 11:59 11:59 11:59 11:59 Intake Total 2002 3108 / 3108 3311 / 3311 3279 / 3279 Output Total 2200 / 2200 6150 / 6150 8250 / 8250 3730 / 3730 Balance -197 / -197 -3042 / -3042 -4939 / -4939 -451 / -451 Weight 244 lb 7.538 oz 240 lb 220 lb Radiology Reports for the Last 24 Hours: 05/27/17 ECHO CONCLUSION: 1. Technically difficult study because of the patient's factor and poor acoustic windows 2. The left atrium is mildly enlarged, left ventricle is normal size, visually estimated ejection fraction 45% with no obvious regional wall motion abnormality in the visualized segments. 3. Mildly enlarged right atrium and right ventricle, contractility of the right ventricle appears to be normal. 4. Thickened and calcified aortic valve without Doppler aortic stenosis aortic insufficiency. 5. Mild mitral and tricuspid regurgitation 6. No significant pericardial effusion noted. - Constitutional no acute distress - *Routine Respiratory Exam Absent: wheezes Comments: decreased BS right base - *Routine Cardiovascular Exam Present: irregular rhythm - *Routine Abdominal Exam Present: soft, normoactive bowel sounds. Absent: tenderness, distended - *Routine Extremities Exam Comments: some ankle edema; much improved - *Routine Neurological Exam Present: alert, oriented X3 Assessment and Plan (1) Bilateral pneumonia Current visit: Yes Status: Acute Qualifiers: Pneumonia type: due to unspecified organism Lung location: unspecified part of lung Qualified Code(s): J18.9 - Pneumonia, unspecified organism Category: Medical Code(s): J18.9 - Pneumonia, unspecified organism (2) Carcinoma, lung Current visit: Yes Status: Chronic Category: Medical Code(s): C34.90 - Malignant neoplasm of unspecified part of unspecified bronchus or lung (3) Paroxysmal A-fib Current visit: Yes Status: Chronic Category: Medical Code(s): I48.0 - Paroxysmal atrial fibrillation (4) CAD (coronary artery disease) Current visit: Yes Status: Acute Category: Medical Code(s): I25.10 - Atherosclerotic heart disease of [place] coronary artery without angina pectoris (5) Respiratory failure Current visit: Yes Status: Acute Category: Medical Code(s): J96.90 - Respiratory failure, unspecified, unspecified whether with hypoxia or hypercapnia (6) Hypertension Current visit: Yes Status: Chronic Category: Medical Code(s): I10 - Essential (primary) hypertension (7) Hypothyroidism Current visit: Yes Status: Chronic Category: Medical Code(s): E03.9 - Hypothyroidism, unspecified (8) COPD (chronic obstructive pulmonary disease) Current visit: Yes Status: Chronic Category: Medical Code(s): J44.9 - Chronic obstructive pulmonary disease, unspecified (9) Anemia of chronic disease Current visit: Yes Status: Chronic Category: Medical Code(s): D63.8
[2017-05-29 07:52] LABS: Anion Gap 6.1 mEq/L (5-15); Blood Urea Nitrogen 25 mg/dL (7-18); Carbon Dioxide 35 mmol/L (21.0-32.0); Chloride 101 mmol/L (98-107); Creatinine Clearance Estimated 134 mL/min (0-300); Creatinine,Serum 0.85 mg/dL (0.70-1.30); Estimated Glomerular Filt Rate 93 ml/min (>60); GFR (African American) 112 ML/MIN (>60); Glucose 165 mg/dL (74-106); Potassium 4.1 mmoL/L (3.5-5.1); Sodium 138 mmol/L (136-145)
[2017-05-29 07:54] LABS: Basophils % 0.2 % (0.1-2.0); Eosinophils % 0.3 % (0.1-12.0); Hematocrit 41.9 % (42.0-52.0); Hemoglobin 13.2 g/dL (14.1-18.0); Lymphocytes # 0.5 K/mm3 (0.7-4.5); Mean Corpuscular HGB Conc 31.6 g/dL (31.8-35.4); Mean Corpuscular Volume 85.6 fl (80-94); Monocytes # 0.5 K/mm3 (0.1-1.0); Monocytes % 3.3 % (1.7-9.3); Neutrophils # 14.1 K/mm3 (1.8-7.8); Neutrophils % 93.2 % (37.0-80.0); Platelet Count 324 K/mm3 (142-424); Red Blood Count 4.89 M/mm3 (4.60-6.20); Red Cell Distribution Width 15.4 % (11.5-17.5); White Blood Count 15.2 K/mm3 (4.8-10.8)
[2017-05-29 07:59] LABS: MANUAL DIFFERENTIAL MANUAL DIFFERENTIAL (MANUAL DIFF)
[2017-05-29 08:41] LABS: Lymphocytes % 3 % (10-50); Monocytes % 5 % (2-9); Neutrophils % 85 % (42-76); Total Cells Counted 100
[2017-05-29 08:42] LABS: Platelet Estimate Normal
--- NOTE | 2017-05-29 08:52 | XR_ITS ---
XR chest portable HISTORY: ITS.REASON: pneumonia ORDERING PHYSICIAN: Karey Lopez MD PATIENT AGE: 56 years COMPARISON: 05/26/2017 FINDINGS: Bilateral lower lobe pneumonia is once again noted right worse in left. This has shown some improvement on both sides. The improvement is slightly greater in the left lower lobe. CHF has improved. Loop recorder device remains in place. IMPRESSION: Persistent but slightly improved bilateral pneumonia with improvement in CHF
--- NOTE | 2017-05-29 09:14 | HMH.PHACONS ---
- Pharmacy Consult Date: 05/29/17 Time: 09:14 Referring provider: DR. MARR Reason for Consult:: VANCOMYCIN LEVEL Allergies and ADEs:: Allergies Allergy/AdvReac Type Severity Reaction Status Date / Time acetaminophen [From TYLENOL] Allergy Mild NA-NAUSEA/V Verified 05/08/17 12:38 OMITING Home Medications:: Home Medications Medication Instructions Recorded Confirmed Type Albuterol Sulfate [Albuterol HFA 2 puffs IH QIDP PRN 05/24/17 05/24/17 History Inhaler] Atorvastatin Calcium [Atorvastatin 40 mg PO HS 05/24/17 05/24/17 History 40mg Tab] Benzonatate [Benzonatate 100mg 100 mg PO TIDP PRN 05/24/17 05/24/17 History cap] Cholecalciferol (Vitamin D3) 2,000 unit PO DAILY 05/24/17 05/24/17 History [Vitamin D3] Gabapentin [Gabapentin 800mg Tab] 800 mg PO QID 05/24/17 05/24/17 History Ibuprofen [Ibuprofen 600mg Tab] 600 mg PO QID 05/24/17 05/24/17 History LORazepam [Ativan 0.5mg tablet] 0.5 mg PO HS 05/24/17 05/24/17 History Lidocaine HCl [Lidocaine viscous 5 ml PO DIRECTED 05/24/17 05/24/17 History 100mL bottle] Lisinopril [Lisinopril 10mg Tab] 10 mg PO DAILY 05/24/17 05/24/17 History Multivitamin [Multivitamins] 1 each PO DAILY 05/24/17 05/24/17 History Omeprazole [Omeprazole 20mg 20 mg PO DAILY 05/24/17 05/24/17 History Capsule] Rivaroxaban [Xarelto] 20 mg PO DAILY 05/24/17 05/24/17 History Trazodone HCl 100 mg PO HS 05/24/17 05/24/17 History Triamterene/Hydrochlorothiazid 1 cap PO DAILY 05/24/17 05/24/17 History [Maxzide-25 tablet] dilTIAZem HCl [Cartia Xt] 240 mg PO DAILY 05/24/17 05/24/17 History fentaNYL [fentaNYL 25mcg/patch] 25 mcg TD Q72H 05/24/17 05/24/17 History levoFLOXacin [Levofloxacin 750MG 750 mg PO DAILY 05/24/17 05/24/17 History Tablet] Height: 1.8 m Weight: 99.79 kg Laboratory Results:: Laboratory Results - last 24 hr 05/29/17 07:25: Vancomycin Trough 16.0 05/29/17 07:25: WBC 15.2 H, RBC 4.89, Hgb 13.2 L, Hct 41.9 L, MCV 85.6, MCH 27.0, MCHC 31.6 L, RDW 15.4, Plt Count 324, MPV 8.0, Neut % (Auto) 93.2 H, Lymph % (Auto) 3.0 L, [place] % (Auto) 3.3, Eos % (Auto) 0.3, Baso % (Auto) 0.2, Neut # (Auto) 14.1 H, Lymph # (Auto) 0.5 L, [place] # (Auto) 0.5, Eos # (Auto) 0.0, Baso # (Auto) 0.0, Total Counted 100, Neutrophils % (Manual) 85 H, Band Neutrophils % 4.0, Lymphocytes % (Manual) 3 L, Atypical Lymphs % 3.0, Monocytes % (Manual) 5, Platelet Estimate Normal 05/29/17 07:25: Sodium 138, Potassium 4.1, Chloride 101, Carbon Dioxide 35 H, Anion Gap 6.1, BUN 25 H, Creatinine 0.85, Estimated Creat Clear 134, Estimated GFR 93, Est GFR ( Amer) 112, Glucose 165 H Medical History: Reports:: Anxiety, Atrial Fibrillation, Cancer (left lung), Congestive Heart Failure, Chronic Obstructive Pulmonary Disease (COPD), Depression, Hypertension Denies:: Diabetes Mellitus Type 1, Diabetes Mellitus Type 2, MRSA Assessment and Plan (1) Bilateral pneumonia Current visit: Yes Status: Acute Qualifiers: Pneumonia type: due to unspecified organism Lung location: unspecified part of lung Qualified Code(s): J18.9 - Pneumonia, unspecified organism Category: Medical Code(s): J18.9 - Pneumonia, unspecified organism (2) Carcinoma, lung Current visit: Yes Status: Chronic Category: Medical Code(s): C34.90 - Malignant neoplasm of unspecified part of unspecified bronchus or lung (3) Paroxysmal A-fib Current visit: Yes Status: Chronic Category: Medical Code(s): I48.0 - Paroxysmal atrial fibrillation (4) CAD (coronary artery disease) Current visit: Yes Status: Acute Category: Medical Code(s): I25.10 - Atherosclerotic heart disease of [place] coronary artery without angina pectoris (5) Respiratory failure Current visit: Yes Status: Acute Category: Medical Code(s): J96.90 - Respiratory failure, unspecified, unspecified whether with hypoxia or hypercapnia (6) Hypertension Current visit: Yes Status: Chronic Category: Medical Code(s):
--- NOTE | 2017-05-29 09:36 | HMH.CARDPN2 ---
Subjective PN (PG) Date: 05/29/17 Time: 09:00 Principal diagnosis: A.fib Interval history: The 56-year-old white male in bed in no acute distress. He continues to improve slowly. Telemetry continues to show atrial fibrillation with variable rate but around 100 beats per minute. She currently on nasal cannula. He continues to have some shortness of breath. Cardioversion was considered for today but in light of the patient's continued shortness of breath will be postponed. PN Exam ([facility]) Vital signs: Temp Pulse Resp BP Pulse Ox 97.9 F 113 H 16 120/75 96 05/29/17 08:00 05/29/17 08:00 05/29/17 08:00 05/29/17 08:00 05/29/17 08:00 - Routine Respiratory Exam Present: rhonchi, diminished air movement - Routine Cardiovascular Exam Present: irregularly irregular A/P Progress Note ([facility]) (1) Paroxysmal A-fib Status: Chronic Assessment and plan: 10 year Xarelto therapy. Postpone cardioversion until later date until pulmonary status has improved. Current Visit: Yes (2) CAD (coronary artery disease) Status: Acute Assessment and plan: Likely stable Current Visit: Yes (3) Bilateral pneumonia Status: Acute Current Visit: Yes (4) Carcinoma, lung Status: Chronic Current Visit: Yes (5) Hypertension Status: Chronic Current Visit: Yes (6) Hypothyroidism Status: Chronic Current Visit: Yes (7) COPD (chronic obstructive pulmonary disease) Status: Chronic Current Visit: Yes (8) Respiratory failure Status: Acute Current Visit: Yes (9) Anemia of chronic disease Status: Chronic Current Visit: Yes
--- NOTE | 2017-05-29 13:27 | PC.NURSE ---
Left message with Marielle for Dr Lopez that patient has requested something for heartburn.
--- NOTE | 2017-05-29 15:31 | PC.NURSE ---
Pt requested to talk with the corporate consultant flattening press operator in the am pertaining to some concerns he had weighing on his mind. Pt verbalized concern to this nurse that he has a 9 year old grandson that he has custody of that relies on him for care. He is concerned with his prognosis and his ability to continue to do this. He states his daughter will not allow him to express his concerns to her because she doesn't want to hear it . manager call center flattening press operator was called and arrived at approx 1130 and stayed with pt until approx 1330. Lungs are clear and diminished. O2 sats have been in low 90's on venti 15 lpm. He has been on the venti the majority of the day. He was up to the bedside commode for bowel movement, o2 sats dropped to low 80's w/exertion. Abd is soft and non tender, bowel sounds hypo. Afib showing on telemetry w/HR ranging from 80's - 130's. Offered to assist pt with bath today, he refused stating I promise i'll do it tomorrow, I just don't feel like it today . notified that pt was requesting something for heartburn . One time dose of maalox ordered and administered along with scheduled omeprazole. Will continue to monitor.
--- NOTE | 2017-05-29 19:14 | PC.NURSE ---
report given to Ray Chandra RN
[2017-05-30] VITALS (23 sets, daily range): BP systolic 91–135; BP diastolic 52–87; PULSE 75–141; RESP 12–26; TEMP 36.2–36.7; O2SAT 86–97
--- NOTE | 2017-05-30 08:03 | PC.NURSE ---
Not much changed with pt during my shift. In and out of controlled afib. Following 2100 med pass pt voiced he was going to sleep and he slept well. Wore bipap all shift until this am when RT switched him over to 50% venti. Pt remained safe during my care.
--- NOTE | 2017-05-30 08:30 | HMH.CARDPN2 ---
Subjective PN (PG) Date: 05/30/17 Time: 08:15 Principal diagnosis: A.fib Interval history: The 56-year-old white male in bed in no acute distress. He continues to improve slowly. Telemetry continues to show atrial fibrillation with variable rate but around 100 beats per minute. He currently on Ventimask with O2 sats in the high 80s when walking. He continues to have some shortness of breath. Cardioversion was considered but in light of the patient's continued shortness of breath and compromise respiratory status, it will be postponed. PN Exam ([facility] Owned) Vital signs: Temp Pulse Resp BP Pulse Ox 97.2 F L 117 H 15 116/70 93 L 05/30/17 03:48 05/30/17 06:47 05/30/17 05:25 05/30/17 05:25 05/30/17 06:37 - Routine Respiratory Exam Present: diminished air movement. Absent: wheezes - Routine Cardiovascular Exam Present: irregularly irregular A/P Progress Note ([facility] Owned) (1) Paroxysmal A-fib Status: Chronic Assessment and plan: Continue beta-phoebe, digoxin and diltiazem. He remains on Xarelto therapy. Current Visit: Yes (2) CAD (coronary artery disease) Status: Acute Assessment and plan: Clinically stable. Current Visit: Yes (3) Bilateral pneumonia Status: Acute Current Visit: Yes (4) Carcinoma, lung Status: Chronic Current Visit: Yes (5) Hypertension Status: Chronic Current Visit: Yes (6) Hypothyroidism Status: Chronic Current Visit: Yes (7) COPD (chronic obstructive pulmonary disease) Status: Chronic Current Visit: Yes (8) Respiratory failure Status: Acute Current Visit: Yes (9) Anemia of chronic disease Status: Chronic Current Visit: Yes
--- NOTE | 2017-05-30 08:33 | P.PN_ITS ---
Subjective PN (PG) Date: 05/30/17 Time: 08:15 Principal diagnosis: A.fib Interval history: The 56-year-old white male in bed in no acute distress. He continues to improve slowly. Telemetry continues to show atrial fibrillation with variable rate but around 100 beats per minute. He currently on Ventimask with O2 sats in the high 80s when walking. He continues to have some shortness of breath. Cardioversion was considered but in light of the patient's continued shortness of breath and compromise respiratory status, it will be postponed. PN Exam ([facility] Owned) Vital signs: Temp Pulse Resp BP Pulse Ox 97.2 F L 117 H 15 116/70 93 L 05/30/17 03:48 05/30/17 06:47 05/30/17 05:25 05/30/17 05:25 05/30/17 06:37 - Routine Respiratory Exam Present: diminished air movement. Absent: wheezes - Routine Cardiovascular Exam Present: irregularly irregular A/P Progress Note ([facility] Owned) (1) Paroxysmal A-fib Status: Chronic Assessment and plan: Continue beta-phoebe, digoxin and diltiazem. He remains on Xarelto therapy. Current Visit: Yes (2) CAD (coronary artery disease) Status: Acute Assessment and plan: Clinically stable. Current Visit: Yes (3) Bilateral pneumonia Status: Acute Current Visit: Yes (4) Carcinoma, lung Status: Chronic Current Visit: Yes (5) Hypertension Status: Chronic Current Visit: Yes (6) Hypothyroidism Status: Chronic Current Visit: Yes (7) COPD (chronic obstructive pulmonary disease) Status: Chronic Current Visit: Yes (8) Respiratory failure Status: Acute Current Visit: Yes (9) Anemia of chronic disease Status: Chronic Current Visit: Yes
--- NOTE | 2017-05-30 19:48 | P.PN_ITS ---
Internal Medicine - PN: Subj *Date: 05/30/17 *Time: 19:45 Interval history: The patient was seen on rounds this morning. He is seen again on rounds this evening. He has shown some slight improvement throughout this day. He has unable to stay off of BiPAP more. He is getting sats of 90-95 with Ventimask. He drops down in the high 80s when he is using the nasal cannula at meals. Exam Vital signs and Labs for Last 24 Hours: Temp Pulse Resp BP Pulse Ox 97.7 F 106 H 20 128/71 91 L 05/30/17 08:00 05/30/17 17:02 05/30/17 08:00 05/30/17 08:00 05/30/17 08:00 I & O for Last 24 hours: Intake & Output 05/28/17 05/29/17 05/30/17 05/31/17 11:59 11:59 11:59 11:59 Intake Total 3311 / 3311 3859 / 3859 3146 / 3146 Output Total 8250 / 8250 4130 / 4130 4400 / 4400 700 / 700 Balance -4939 / -4939 -271 / -271 -1254 / -1254 -700 / -700 Weight 240 lb 220 lb 239 lb 14.476 oz - Constitutional no acute distress - *Routine Respiratory Exam Present: decreased breath sounds Comments: But moving air in the upper air ovalles quite well. - *Routine Cardiovascular Exam Present: irregularly irregular (Rate in the 100s usually) - *Routine Extremities Exam Comments: He now has minimal edema. We can discontinue Eduardo wraps. Assessment and Plan (1) Bilateral pneumonia Current visit: Yes Status: Acute Qualifiers: Pneumonia type: due to unspecified organism Lung location: unspecified part of lung Qualified Code(s): J18.9 - Pneumonia, unspecified organism Category: Medical Code(s): J18.9 - Pneumonia, unspecified organism (2) Carcinoma, lung Current visit: Yes Status: Chronic Category: Medical Code(s): C34.90 - Malignant neoplasm of unspecified part of unspecified bronchus or lung (3) Paroxysmal A-fib Current visit: Yes Status: Chronic Category: Medical Code(s): I48.0 - Paroxysmal atrial fibrillation (4) CAD (coronary artery disease) Current visit: Yes Status: Acute Category: Medical Code(s): I25.10 - Atherosclerotic heart disease of [place] coronary artery without angina pectoris (5) Respiratory failure Current visit: Yes Status: Acute Category: Medical Code(s): J96.90 - Respiratory failure, unspecified, unspecified whether with hypoxia or hypercapnia (6) Hypertension Current visit: Yes Status: Chronic Category: Medical Code(s): I10 - Essential (primary) hypertension (7) Hypothyroidism Current visit: Yes Status: Chronic Category: Medical Code(s): E03.9 - Hypothyroidism, unspecified (8) COPD (chronic obstructive pulmonary disease) Current visit: Yes Status: Chronic Category: Medical Code(s): J44.9 - Chronic obstructive pulmonary disease, unspecified (9) Anemia of chronic disease Current visit: Yes Status: Chronic Category: Medical Code(s): D63.8 - Anemia in other chronic diseases classified elsewhere - Assessment and plan all Dx Assessment and Plan for all problems:: Continue respiratory support as dictated by his clinical condition.
[2017-05-31] VITALS (17 sets, daily range): BP systolic 101–141; BP diastolic 53–76; PULSE 79–128; RESP 13–25; TEMP 36.2–36.6; O2SAT 88–100
--- NOTE | 2017-05-31 08:43 | PC.NURSE ---
Pt had a better night tonight versus last night. He was able to use Venturi mask all night and did not have to put on bipap. Oxygenation remained above 90%. Iv's infusing well, nothing acute to report. Pt remained safe and stable throughout my care.Report given to Laya Sinclair RN at shift change to her satisfaction.
--- NOTE | 2017-05-31 08:48 | HMH.ACPN2 ---
Internal Medicine - PN: Subj *Date: 05/31/17 *Time: 08:48 Interval history: Mr. Laboy is doing better. He is depending more on a Ventimask and occasionally using nasal cannula. With the nasal cannula he can drop into the 80s but with a Ventimask he stays in the 90s. He obviously feels better. He complains of feeling shaky. He is comfortable while he is sitting and eating. He is without leg edema and his lungs are much clearer. Exam Vital signs and Labs for Last 24 Hours: Temp Pulse Resp BP Pulse Ox 97.1 F L 101 H 25 H 119/68 93 L 05/31/17 06:00 05/31/17 07:54 05/31/17 07:05 05/31/17 07:05 05/31/17 07:54 I & O for Last 24 hours: Intake & Output 05/28/17 05/29/17 05/30/17 05/31/17 11:59 11:59 11:59 11:59 Intake Total 3311 / 3311 3859 / 3859 3246 / 3246 1322 / 1322 Output Total 8250 / 8250 4130 / 4130 4400 / 4400 1200 / 1200 Balance -4939 / -4939 -271 / -271 -1154 / -1154 122 / 122 Weight 240 lb 220 lb 239 lb 14.476 oz - *Routine HEENT Exam Comments: He has an excoriation on the bridge of his nose from the BiPAP - *Routine Respiratory Exam Comments: Better air movement. Decreased breath sounds in the left upper lobe in the right lower lobe. - *Routine Cardiovascular Exam Comments: Atrial fibrillation persists. Rate is usually above 100. - *Routine Abdominal Exam Present: soft. Absent: tenderness - *Routine Skin Exam Present: intact - *Routine Neurological Exam Present: alert, oriented X3 Assessment and Plan (1) Bilateral pneumonia Current visit: Yes Status: Acute Qualifiers: Pneumonia type: due to unspecified organism Lung location: unspecified part of lung Qualified Code(s): J18.9 - Pneumonia, unspecified organism Category: Medical Code(s): J18.9 - Pneumonia, unspecified organism (2) Carcinoma, lung Current visit: Yes Status: Chronic Category: Medical Code(s): C34.90 - Malignant neoplasm of unspecified part of unspecified bronchus or lung (3) Paroxysmal A-fib Current visit: Yes Status: Chronic Category: Medical Code(s): I48.0 - Paroxysmal atrial fibrillation (4) CAD (coronary artery disease) Current visit: Yes Status: Acute Category: Medical Code(s): I25.10 - Atherosclerotic heart disease of [place] coronary artery without angina pectoris (5) Respiratory failure Current visit: Yes Status: Acute Category: Medical Code(s): J96.90 - Respiratory failure, unspecified, unspecified whether with hypoxia or hypercapnia (6) Hypertension Current visit: Yes Status: Chronic Category: Medical Code(s): I10 - Essential (primary) hypertension (7) Hypothyroidism Current visit: Yes Status: Chronic Category: Medical Code(s): E03.9 - Hypothyroidism, unspecified (8) COPD (chronic obstructive pulmonary disease) Current visit: Yes Status: Chronic Category: Medical Code(s): J44.9 - Chronic obstructive pulmonary disease, unspecified (9) Anemia of chronic disease Current visit: Yes Status: Chronic Category: Medical Code(s): D63.8 - Anemia in other chronic diseases classified elsewhere - Assessment and plan all Dx Assessment and Plan for all problems:: He could be moved to medical floor depending on bed availability. He needs to continue with registered nurse cardiac.
[2017-05-31 09:47] LABS: Anion Gap 9.2 mEq/L (5-15); Blood Urea Nitrogen 28 mg/dL (7-18); Carbon Dioxide 34 mmol/L (21.0-32.0); Chloride 98 mmol/L (98-107); Creatinine Clearance Estimated 109 mL/min (0-300); Creatinine,Serum 1.14 mg/dL (0.70-1.30); Estimated Glomerular Filt Rate 66 ml/min (>60); GFR (African American) 80 ML/MIN (>60); Glucose 226 mg/dL (74-106); Potassium 4.2 mmoL/L (3.5-5.1); Sodium 137 mmol/L (136-145)
[2017-05-31 10:12] LABS: Basophils % 0.1 % (0.1-2.0); Eosinophils % 0.2 % (0.1-12.0); Hematocrit 46.6 % (42.0-52.0); Hemoglobin 14.7 g/dL (14.1-18.0); Lymphocytes # 0.3 K/mm3 (0.7-4.5); Lymphocytes % 2.3 K/mm3 (10-50); Mean Corpuscular HGB Conc 31.5 g/dL (31.8-35.4); Mean Corpuscular Hemoglobin 27.5 pg (27.0-31.2); Mean Corpuscular Volume 87.3 fl (80-94); Mean Platelet Volume 7.9 fl (7.4-10.4); Monocytes # 0.4 K/mm3 (0.1-1.0); Monocytes % 3.3 % (1.7-9.3); Neutrophils # 12.6 K/mm3 (1.8-7.8); Neutrophils % 94.2 % (37.0-80.0); Platelet Count 396 K/mm3 (142-424); Red Blood Count 5.34 M/mm3 (4.60-6.20); Red Cell Distribution Width 15.8 % (11.5-17.5); White Blood Count 13.4 K/mm3 (4.8-10.8)
[2017-05-31 10:30] LABS: MANUAL DIFFERENTIAL MANUAL DIFFERENTIAL (MANUAL DIFF)
--- NOTE | 2017-05-31 10:49 | HMH.CARDPN2 ---
Subjective PN (PG) Date: 05/31/17 Time: 10:49 Principal diagnosis: A.fib Interval history: The 56-year-old white male in bed in no acute distress. He continues to improve slowly. Telemetry continues to show atrial fibrillation with variable rate but around 100 beats per minute. He currently on Ventimask with O2 sats in the high 80s/90s when talking. He continues to have some shortness of breath. Telemetry is to show atrial fibrillation with rate spiking into the 130s when patient is upset or talking/moving. PN Exam ([facility] Owned) Vital signs: Temp Pulse Resp BP Pulse Ox 97.1 F L 128 H 25 H 119/68 93 L 05/31/17 06:00 05/31/17 09:09 05/31/17 07:05 05/31/17 07:05 05/31/17 07:54 - Routine Respiratory Exam Present: diminished air movement - Routine Cardiovascular Exam Present: irregularly irregular A/P Progress Note ([facility]ed) (1) Paroxysmal A-fib Status: Chronic Assessment and plan: Continue current combination of digoxin, beta-phoebe and calcium channel phoebe for rate control. He remains on Xarelto for anticoagulation. Current Visit: Yes (2) CAD (coronary artery disease) Status: Acute Assessment and plan: Clinically stable. Current Visit: Yes (3) Bilateral pneumonia Status: Acute Current Visit: Yes (4) Carcinoma, lung Status: Chronic Current Visit: Yes (5) Hypertension Status: Chronic Current Visit: Yes (6) Hypothyroidism Status: Chronic Current Visit: Yes (7) COPD (chronic obstructive pulmonary disease) Status: Chronic Current Visit: Yes (8) Respiratory failure Status: Acute Current Visit: Yes (9) Anemia of chronic disease Status: Chronic Current Visit: Yes
--- NOTE | 2017-05-31 10:52 | P.PN_ITS ---
Subjective PN (PG) Date: 05/31/17 Time: 10:49 Principal diagnosis: A.fib Interval history: The 56-year-old white male in bed in no acute distress. He continues to improve slowly. Telemetry continues to show atrial fibrillation with variable rate but around 100 beats per minute. He currently on Ventimask with O2 sats in the high 80s/90s when talking. He continues to have some shortness of breath. Telemetry is to show atrial fibrillation with rate spiking into the 130s when patient is upset or talking/moving. PN Exam ([facility] Owned) Vital signs: Temp Pulse Resp BP Pulse Ox 97.1 F L 128 H 25 H 119/68 93 L 05/31/17 06:00 05/31/17 09:09 05/31/17 07:05 05/31/17 07:05 05/31/17 07:54 - Routine Respiratory Exam Present: diminished air movement - Routine Cardiovascular Exam Present: irregularly irregular A/P Progress Note ([facility] Owned) (1) Paroxysmal A-fib Status: Chronic Assessment and plan: Continue current combination of digoxin, beta-phoebe and calcium channel phoebe for rate control. He remains on Xarelto for anticoagulation. Current Visit: Yes (2) CAD (coronary artery disease) Status: Acute Assessment and plan: Clinically stable. Current Visit: Yes (3) Bilateral pneumonia Status: Acute Current Visit: Yes (4) Carcinoma, lung Status: Chronic Current Visit: Yes (5) Hypertension Status: Chronic Current Visit: Yes (6) Hypothyroidism Status: Chronic Current Visit: Yes (7) COPD (chronic obstructive pulmonary disease) Status: Chronic Current Visit: Yes (8) Respiratory failure Status: Acute Current Visit: Yes (9) Anemia of chronic disease Status: Chronic Current Visit: Yes
--- NOTE | 2017-05-31 13:13 | PC.NURSE ---
pt transferred to ms unit at 1240. report able to be called at 1300
[2017-05-31 13:27] LABS: Lymphocytes % 4 % (10-50); Monocytes % 6 % (2-9); Neutrophils % 90 % (42-76); Platelet Estimate Normal; RBC Morphology Normal; Total Cells Counted 100
--- NOTE | 2017-05-31 14:19 | XR_ITS ---
XR chest 2V May 31, 2017 Patient Age: 56 years: Male HISTORY: ITS.REASON: pneumonia follow-up TECHNIQUE: PA and lateral chest COMPARISON ::05/16 and 05/26/2017 CXR FINDINGS : When compared to 05/28/2017 and 05/26/2017 CXR there has been progression of the diffuse interstitial infiltrate right lung,. This is most evident the right midlung and right lung base . Infiltrate primarily involves RLL but there is also a 4. Seen anteriorly at the RUL and possibly RML. On today's lateral view there is increased density anteriorly reflecting upper lobe infiltrate most likely R UL. Left lung IMPRESSION fairly stable on with only question of subtle additional infiltrate left infrahilar region towards left lower lobe. I would note that the left heart border partially obscured which could reflect some scant infiltrate at lingula. Equivocal. Favor findings reflect pneumonia/interstitial pneumonitis although there could be element of mild CHF or vascular congestion contribute. Heart is normal in size and loop recorder noted. Pulmonary vascularity appears upper normal otherwise. No pleural effusion. IMPRESSION This 2 view CXR from May 31 is compared to 05/29/2017. RIGHT LUNG:. Progression of infiltrate right lung , most evident throughout the mid and lower lung field. Primarily interstitial infiltrate/most likely reflecting pneumonitis although could reflect CHF LEFT LUNG. Similar appearance, with only suggestion of subtle progression of infiltrate left infrahilar region
--- NOTE | 2017-05-31 14:35 | DIET.NUTRFU ---
po intakes 75-100%. Pt reports food is bland and requesting additional salt, pepper. Will provide as pt is on Regular diet.
--- NOTE | 2017-05-31 14:37 | PC.NURSE ---
Pt is A&Ox3. 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 Lungs CTA with fine crackles at (L) base. Heart rate irreg. Abd soft and nontender with active BS x4 quads. Denies difficulty /c bowel/bladder. O2 @ 50% venti mask intact. Pt denies c/o at this time. Will continue to monitor. Pt refuses DANY gianluca.
[2017-05-31 16:06] LABS: Digoxin 0.51 ng/mL (1.15-2.56)
--- NOTE | 2017-05-31 19:01 | PC.NURSE ---
Bedside report given to Macho Love RN
[2017-06-01] VITALS (18 sets, daily range): BP systolic 94–129; BP diastolic 58–79; PULSE 56–120; RESP 20–22; TEMP 35.8–36.9; O2SAT 93–98
--- NOTE | 2017-06-01 03:52 | PC.NURSE ---
lAYING IN BED RESTING AT THIS DENIES ANY PAIN. SOME SOA ON EXERTION WHEN GETTING UP TO BEDSIDE TOILET. RETURNS TO BASELINE. LUNGS ARE DIMINISHED. RESP EVEN AND NONLABORED. HAS VENTI MASK ON AT 50 %. HAS REST WELL MOST OF NIGHT. IV IS PATENT. STATES HAS NO NEEDS AT THIS TIME. BED IS LOCKED IN LOW POSITION, SIDE RALES UP X 2. CALL SÁNCHEZ WITHIN REACH. WILL CONTINUE TO MONITOR.
--- NOTE | 2017-06-01 07:35 | PC.NURSE ---
Report received from Macho Love RN
--- NOTE | 2017-06-01 13:19 | PC.NURSE ---
Pt with lethargy. Easily aroused by verbal stimuli. Call placed to Dr Lopez @ [phone]. New orders received to place pt on BiPap and obtain a CBC.Respiratory notified of need for BiPap.
[2017-06-01 13:39] LABS: Basophils % 0.1 % (0.1-2.0); Eosinophils # 0.1 K/mm3 (0.0-0.4); Eosinophils % 0.3 % (0.1-12.0); Hematocrit 46.6 % (42.0-52.0); Hemoglobin 14.9 g/dL (14.1-18.0); Lymphocytes # 0.4 K/mm3 (0.7-4.5); Lymphocytes % 2.5 K/mm3 (10-50); Mean Corpuscular Hemoglobin 27.4 pg (27.0-31.2); Mean Corpuscular Volume 85.7 fl (80-94); Mean Platelet Volume 7.9 fl (7.4-10.4); Monocytes # 0.9 K/mm3 (0.1-1.0); Monocytes % 4.9 % (1.7-9.3); Neutrophils # 16.8 K/mm3 (1.8-7.8); Neutrophils % 92.2 % (37.0-80.0); Platelet Count 342 K/mm3 (142-424); Red Blood Count 5.44 M/mm3 (4.60-6.20); Red Cell Distribution Width 15.8 % (11.5-17.5); White Blood Count 18.2 K/mm3 (4.8-10.8)
[2017-06-01 14:24] LABS: MANUAL DIFFERENTIAL MANUAL DIFFERENTIAL (MANUAL DIFF)
--- NOTE | 2017-06-01 15:16 | PC.NURSE ---
Peg tube placement checked. Pt had 20cc of gastric secretions returned. Pt fed 480mls of Glucerna 1.0 via gravity followed by 150ml H2O flush. Pt tolerated procedure /s incident. Pt instructed to remain in an upright position for 1 hour post feeding. Pt verbalizes understanding of feeding procedure and aspiration precautions.
--- NOTE | 2017-06-01 15:37 | HMH.ACPN2 ---
Internal Medicine - PN: Subj *Date: 06/01/17 *Time: 15:37 Interval history: The patient was seen this morning. He has been staying off of BiPAP. But later on in the day he became tired and had to go back on BiPAP. Vital signs remained stable. He is afebrile. Exam Vital signs and Labs for Last 24 Hours: Temp Pulse Resp BP Pulse Ox 96.4 F L 89 20 102/68 96 06/01/17 12:53 06/01/17 12:53 06/01/17 12:53 06/01/17 12:53 06/01/17 12:53 Laboratory Results - last 24 hr 05/31/17 15:37: Digoxin 0.51 L 06/01/17 13:35: WBC 18.2 H D, RBC 5.44, Hgb 14.9, Hct 46.6, MCV 85.7, MCH 27.4, MCHC 32.0, RDW 15.8, Plt Count 342, MPV 7.9, Neut % (Auto) 92.2 H, Lymph % (Auto) 2.5 L, [place] % (Auto) 4.9, Eos % (Auto) 0.3, Baso % (Auto) 0.1, Neut # (Auto) 16.8 H, Lymph # (Auto) 0.4 L, [place] # (Auto) 0.9, Eos # (Auto) 0.1, Baso # (Auto) 0.0 Laboratory Tests 05/31/17 06/01/17 09:14 13:35 WBC 18.2 H D Hgb 14.9 Hct 46.6 Sodium 137 Potassium 4.2 Chloride 98 Carbon Dioxide 34 H Glucose 226 H I & O for Last 24 hours: Intake & Output 05/30/17 05/31/17 06/01/17 06/02/17 11:59 11:59 11:59 11:59 Intake Total 3246 / 3246 1562 / 1562 2801 / 2801 120 / 120 Output Total 4400 / 4400 2050 / 2050 3050 / 3050 650 / 650 Balance -1154 / -1154 -488 / -488 -249 / -249 -530 / -530 Weight 239 lb 14.476 oz - Constitutional Comments: Alert conversant tired - *Routine Respiratory Exam Present: decreased breath sounds - *Routine Cardiovascular Exam Present: irregularly irregular - *Routine Extremities Exam Absent: edema Assessment and Plan (1) Bilateral pneumonia Current visit: Yes Status: Acute Qualifiers: Pneumonia type: due to unspecified organism Lung location: unspecified part of lung Qualified Code(s): J18.9 - Pneumonia, unspecified organism Category: Medical Code(s): J18.9 - Pneumonia, unspecified organism (2) Carcinoma, lung Current visit: Yes Status: Chronic Category: Medical Code(s): C34.90 - Malignant neoplasm of unspecified part of unspecified bronchus or lung (3) Paroxysmal A-fib Current visit: Yes Status: Chronic Category: Medical Code(s): I48.0 - Paroxysmal atrial fibrillation (4) CAD (coronary artery disease) Current visit: Yes Status: Acute Category: Medical Code(s): I25.10 - Atherosclerotic heart disease of [place] coronary artery without angina pectoris (5) Respiratory failure Current visit: Yes Status: Acute Category: Medical Code(s): J96.90 - Respiratory failure, unspecified, unspecified whether with hypoxia or hypercapnia (6) Hypertension Current visit: Yes Status: Chronic Category: Medical Code(s): I10 - Essential (primary) hypertension (7) Hypothyroidism Current visit: Yes Status: Chronic Category: Medical Code(s): E03.9 - Hypothyroidism, unspecified (8) COPD (chronic obstructive pulmonary disease) Current visit: Yes Status: Chronic Category: Medical Code(s): J44.9 - Chronic obstructive pulmonary disease, unspecified (9) Anemia of chronic disease Current visit: Yes Status: Chronic Category: Medical Code(s): D63.8 - Anemia in other chronic diseases classified elsewhere - Assessment and plan all Dx Assessment and Plan for all problems:: Continue present regimen. I may have to back off on his Lasix.
--- NOTE | 2017-06-01 15:40 | P.PN_ITS ---
Internal Medicine - PN: Subj *Date: 06/01/17 *Time: 15:37 Interval history: The patient was seen this morning. He has been staying off of BiPAP. But later on in the day he became tired and had to go back on BiPAP. Vital signs remained stable. He is afebrile. Exam Vital signs and Labs for Last 24 Hours: Temp Pulse Resp BP Pulse Ox 96.4 F L 89 20 102/68 96 06/01/17 12:53 06/01/17 12:53 06/01/17 12:53 06/01/17 12:53 06/01/17 12:53 Laboratory Results - last 24 hr 05/31/17 15:37: Digoxin 0.51 L 06/01/17 13:35: WBC 18.2 H D, RBC 5.44, Hgb 14.9, Hct 46.6, MCV 85.7, MCH 27.4, MCHC 32.0, RDW 15.8, Plt Count 342, MPV 7.9, Neut % (Auto) 92.2 H, Lymph % (Auto ) 2.5 L, [place] % (Auto) 4.9, Eos % (Auto) 0.3, Baso % (Auto) 0.1, Neut # (Auto) 16.8 H, Lymph # (Auto) 0.4 L, [place] # (Auto) 0.9, Eos # (Auto) 0.1, Baso # (Auto ) 0.0 Laboratory Tests 05/31/17 06/01/17 09:14 13:35 WBC 18.2 H D Hgb 14.9 Hct 46.6 Sodium 137 Potassium 4.2 Chloride 98 Carbon Dioxide 34 H Glucose 226 H I & O for Last 24 hours: Intake & Output 05/30/17 05/31/17 06/01/17 06/02/17 11:59 11:59 11:59 11:59 Intake Total 3246 / 3246 1562 / 1562 2801 / 2801 120 / 120 Output Total 4400 / 4400 2050 / 2050 3050 / 3050 650 / 650 Balance -1154 / -1154 -488 / -488 -249 / -249 -530 / -530 Weight 239 lb 14.476 oz - Constitutional Comments: Alert conversant tired - *Routine Respiratory Exam Present: decreased breath sounds - *Routine Cardiovascular Exam Present: irregularly irregular - *Routine Extremities Exam Absent: edema Assessment and Plan (1) Bilateral pneumonia Current visit: Yes Status: Acute Qualifiers: Pneumonia type: due to unspecified organism Lung location: unspecified part of lung Qualified Code(s): J18.9 - Pneumonia, unspecified organism Category: Medical Code(s): J18.9 - Pneumonia, unspecified organism (2) Carcinoma, lung Current visit: Yes Status: Chronic Category: Medical Code(s): C34.90 - Malignant neoplasm of unspecified part of unspecified bronchus or lung (3) Paroxysmal A-fib Current visit: Yes Status: Chronic Category: Medical Code(s): I48.0 - Paroxysmal atrial fibrillation (4) CAD (coronary artery disease) Current visit: Yes Status: Acute Category: Medical Code(s): I25.10 - Atherosclerotic heart disease of [place] coronary artery without angina pectoris (5) Respiratory failure Current visit: Yes Status: Acute Category: Medical Code(s): J96.90 - Respiratory failure, unspecified, unspecified whether with hypoxia or hypercapnia (6) Hypertension Current visit: Yes Status: Chronic Category: Medical Code(s): I10 - Essential (primary) hypertension (7) Hypothyroidism Current visit: Yes Status: Chronic Category: Medical Code(s): E03.9 - Hypothyroidism, unspecified (8) COPD (chronic obstructive pulmonary disease) Current visit: Yes Status: Chronic Category: Medical Code(s): J44.9 - Chronic obstructive pulmonary disease, unspecified (9) Anemia of chronic disease Current visit: Yes Status: Chronic Category: Medical Code(s): D63.8 - Anemia in other chronic diseases classified elsewhere - Assessment and plan all Dx Assessment and Plan for all problems:: Continue present regimen. I may have to back of
[2017-06-01 15:47] LABS: Lymphocytes % 1 % (10-50); Monocytes % 2 % (2-9); Neutrophils % 95 % (42-76); Platelet Estimate Normal; RBC Morphology Normal; Total Cells Counted 100
--- NOTE | 2017-06-01 16:39 | PC.NURSE ---
1639 - Pt is A&Ox3. Pt had a decline in status this shift and was notified. Pt returned to BiPap. CBC drawn. Lungs CTA /c fine crackles in bilat bases. Heart rate irreg. Telemetry shows A-fib with rates for 90's - 110's. Abd soft and non-tender /c active BS x4 quads. IV x2 (R) AC /s s/s of infiltration/infection. Will continue to monitor.
--- NOTE | 2017-06-01 19:01 | PC.NURSE ---
Bedside report given to Marjan Jackson RN
[2017-06-02] VITALS (15 sets, daily range): BP systolic 104–128; BP diastolic 61–75; PULSE 59–130; RESP 16–22; TEMP 35.9–37.1; O2SAT 94–98
--- NOTE | 2017-06-02 04:27 | PC.NURSE ---
PATIENT HAS SLEPT WELL THIS SHIFT. HE HAS REMAINED ON BIPAP WITH OXYGEN SATURATION 93-96%. HE SEEMS TO HAVE BEEN LESS LETHARGIC THAN PATIENT HAD BEEN DURING THE DAY REPORTED FROM DAYSHIFT RN. WHEN PATIENT GOT UP TO BEDSIDE TO USE THE URINAL, HIS PULSE ELEVATED TO 130-140 WITH OXYGEN SATURATION 86%. ONCE PATIENT RETURNED TO BED, HOWEVER, HIS PULSE AND OXYGEN SATURATION RETURNED TO BASELINE. HE HAS HAD NO SOA OR DISTRESS. DENIED PAIN. HE IS CURRENTLY IN BED ASLEEP. NO OTHER PROBLEMS NOTED AT THIS TIME. VSS. WILL CONTINUE TO MONITOR. SAFETY MEASURES IN PLACE, CALL LIGHT IN REACH.
--- NOTE | 2017-06-02 07:40 | PC.NURSE ---
Received bedside report from Marjan Jackson RN
--- NOTE | 2017-06-02 10:53 | XR_ITS ---
XR chest portable Ordering Physician: Karey Lopez MD Patient Age: 56 years: Male HISTORY: ITS.REASON: PNEUMONIA Pneumonia follow-up with short of breath. Cough. TECHNIQUE: AP portable upright chest COMPARISON :and 05/26/2017. pXR FINDINGS No improvement since since the most recent May 29, 2017 CXR. In fact infiltrate seems slightly more pronounced today at the right midlung and right base as well as a left base. This may in part be due to less optimal inspiration versus previous study. Mary and mediastinal structures stable and satisfactory. Loop recorder appears satisfactory.. Nonspecific blunting left CP angle is similar to previous studies reflects small pleural effusion. . Difficult to determine if this reflects slight progression interstitial infiltrate. Could reflect mild pulmonary edema/mild CHF which is additionally accentuated by the wood preparation supervisor technique today. IMPRESSION: No improvement. 02/26/2018 In fact Slight progression of bilateral primarily interstitial infiltrate 02/26/2018 .. Infiltrate right midlung & right base appear are more pronounced ,.... Infiltrate towards left lung base perhaps slightly more evident 05/31/2017 chest film now available. Today's Chest film appears stable to perhaps slight improvement versus a more recent chest film which is now become available. Addendum: apparently there is 05-31-17 PA & lateral chest comparison which has now become available, was not not available before. It did not show up in PACS I believe due to order checker sales data analyst inconsistency or error ... When comparing today's study for this is 05-31-17 there is been has been incremental improvement..
--- NOTE | 2017-06-02 11:17 | HMH.ACPN2 ---
Internal Medicine - PN: Subj *Date: 06/02/17 *Time: 11:17 Interval history: He continues to struggle with his respiratory status. He was on BiPAP through the night. Today he is on the Ventimask. His sats run in the 90s. I think he got tired of breathing yesterday. Cough is still productive. Chest x-ray will be repeated today. We need to speak to the [facility] tomorrow and see what a game plan is regarding his lung cancer and his pulmonary status. Exam Vital signs and Labs for Last 24 Hours: Temp Pulse Resp BP Pulse Ox 97.7 F 92 H 20 104/62 95 06/02/17 07:30 06/02/17 08:09 06/02/17 07:30 06/02/17 07:30 06/02/17 07:30 Laboratory Results - last 24 hr 06/01/17 13:35: WBC 18.2 H D, RBC 5.44, Hgb 14.9, Hct 46.6, MCV 85.7, MCH 27.4, MCHC 32.0, RDW 15.8, Plt Count 342, MPV 7.9, Neut % (Auto) 92.2 H, Lymph % (Auto) 2.5 L, [place] % (Auto) 4.9, Eos % (Auto) 0.3, Baso % (Auto) 0.1, Neut # (Auto) 16.8 H, Lymph # (Auto) 0.4 L, [place] # (Auto) 0.9, Eos # (Auto) 0.1, Baso # (Auto) 0.0, Total Counted 100, Neutrophils % (Manual) 95 H, Lymphocytes % (Manual) 1 L, Atypical Lymphs % 2.0, Monocytes % (Manual) 2, Platelet Estimate Normal, RBC Morphology Normal I & O for Last 24 hours: Intake & Output 05/30/17 05/31/17 06/01/17 06/02/17 11:59 11:59 11:59 11:59 Intake Total 3246 / 3246 1562 / 1562 2801 / 2801 3622 / 3622 Output Total 4400 / 4400 2050 / 2050 3050 / 3050 2750 / 2750 Balance -1154 / -1154 -488 / -488 -249 / -249 872 / 872 Weight 239 lb 14.476 oz 231 lb 8 oz 231 lb 8 oz - Constitutional no acute distress - *Routine HEENT Exam ENT: Present: mucous membranes moist - *Routine Respiratory Exam Comments: Moving air bilaterally. Bilateral rhonchi and rales at the bases. - *Routine Cardiovascular Exam Present: irregularly irregular Comments: 100 - *Routine Abdominal Exam Present: soft. Absent: tenderness - *Routine Extremities Exam Absent: edema - *Routine Skin Exam Comments: Legs dry - *Routine Neurological Exam Present: alert, oriented X3 Assessment and Plan (1) Bilateral pneumonia Current visit: Yes Status: Acute Qualifiers: Pneumonia type: due to unspecified organism Lung location: unspecified part of lung Qualified Code(s): J18.9 - Pneumonia, unspecified organism Category: Medical Code(s): J18.9 - Pneumonia, unspecified organism (2) Carcinoma, lung Current visit: Yes Status: Chronic Category: Medical Code(s): C34.90 - Malignant neoplasm of unspecified part of unspecified bronchus or lung (3) Paroxysmal A-fib Current visit: Yes Status: Chronic Category: Medical Code(s): I48.0 - Paroxysmal atrial fibrillation (4) CAD (coronary artery disease) Current visit: Yes Status: Acute Category: Medical Code(s): I25.10 - Atherosclerotic heart disease of [place] coronary artery without angina pectoris (5) Respiratory failure Current visit: Yes Status: Acute Category: Medical Code(s): J96.90 - Respiratory failure, unspecified, unspecified whether with hypoxia or hypercapnia (6) Hypertension Current visit: Yes Status: Chronic Category: Medical Code(s): I10 - Essential (primary) hypertension (7) Hypothyroidism Current visit: Yes Status: Chronic Category: Medical Code(s): E03.9 - Hypothyroidism, unspecified (8) COPD (chronic obstructive pulmonary disease) Current visit: Yes Status: Chronic Category: Medical Code(s): J44.9 - Chronic obstructive pulmonary disease, unspecified (9) Anemia of chronic disease Current visit: Yes Status: Chronic Category: Medical Code(s): D63.8 - Anemia in other chronic diseases classified elsewhere - Assessment and plan all Dx Assessment and Plan for all problems:: Recheck chest x-ray. We will communicate with [facility] tomorrow. That his current IV antibiotic is vancomycin. He got limited doses of Pipracillin on admission. He has culture n
--- NOTE | 2017-06-02 11:20 | P.PN_ITS ---
Internal Medicine - PN: Subj *Date: 06/02/17 *Time: 11:17 Interval history: He continues to struggle with his respiratory status. He was on BiPAP through the night. Today he is on the Ventimask. His sats run in the 90s. I think he got tired of breathing yesterday. Cough is still productive. Chest x-ray will be repeated today. We need to speak to the [facility] tomorrow and see what a game plan is regarding his lung cancer and his pulmonary status. Exam Vital signs and Labs for Last 24 Hours: Temp Pulse Resp BP Pulse Ox 97.7 F 92 H 20 104/62 95 06/02/17 07:30 06/02/17 08:09 06/02/17 07:30 06/02/17 07:30 06/02/17 07:30 Laboratory Results - last 24 hr 06/01/17 13:35: WBC 18.2 H D, RBC 5.44, Hgb 14.9, Hct 46.6, MCV 85.7, MCH 27.4, MCHC 32.0, RDW 15.8, Plt Count 342, MPV 7.9, Neut % (Auto) 92.2 H, Lymph % (Auto ) 2.5 L, [place] % (Auto) 4.9, Eos % (Auto) 0.3, Baso % (Auto) 0.1, Neut # (Auto) 16.8 H, Lymph # (Auto) 0.4 L, [place] # (Auto) 0.9, Eos # (Auto) 0.1, Baso # (Auto ) 0.0, Total Counted 100, Neutrophils % (Manual) 95 H, Lymphocytes % (Manual) 1 L, Atypical Lymphs % 2.0, Monocytes % (Manual) 2, Platelet Estimate Normal, RBC Morphology Normal I & O for Last 24 hours: Intake & Output 05/30/17 05/31/17 06/01/17 06/02/17 11:59 11:59 11:59 11:59 Intake Total 3246 / 3246 1562 / 1562 2801 / 2801 3622 / 3622 Output Total 4400 / 4400 2050 / 2050 3050 / 3050 2750 / 2750 Balance -1154 / -1154 -488 / -488 -249 / -249 872 / 872 Weight 239 lb 14.476 oz 231 lb 8 oz 231 lb 8 oz - Constitutional no acute distress - *Routine HEENT Exam ENT: Present: mucous membranes moist - *Routine Respiratory Exam Comments: Moving air bilaterally. Bilateral rhonchi and rales at the bases. - *Routine Cardiovascular Exam Present: irregularly irregular Comments: 100 - *Routine Abdominal Exam Present: soft. Absent: tenderness - *Routine Extremities Exam Absent: edema - *Routine Skin Exam Comments: Legs dry - *Routine Neurological Exam Present: alert, oriented X3 Assessment and Plan (1) Bilateral pneumonia Current visit: Yes Status: Acute Qualifiers: Pneumonia type: due to unspecified organism Lung location: unspecified part of lung Qualified Code(s): J18.9 - Pneumonia, unspecified organism Category: Medical Code(s): J18.9 - Pneumonia, unspecified organism (2) Carcinoma, lung Current visit: Yes Status: Chronic Category: Medical Code(s): C34.90 - Malignant neoplasm of unspecified part of unspecified bronchus or lung (3) Paroxysmal A-fib Current visit: Yes Status: Chronic Category: Medical Code(s): I48.0 - Paroxysmal atrial fibrillation (4) CAD (coronary artery disease) Current visit: Yes Status: Acute Category: Medical Code(s): I25.10 - Atherosclerotic heart disease of [place] coronary artery without angina pectoris (5) Respiratory failure Current visit: Yes Status: Acute Category: Medical Code(s): J96.90 - Respiratory failure, unspecified, unspecified whether with hypoxia or hypercapnia (6) Hypertension Current visit: Yes Status: Chronic Category: Medical Code(s): I10 - Essential (primary) hypertension (7) Hypothyroidism Current visit: Yes Status: Chronic Category: Medical Code(s): E03.9 - Hypothyroidism, unspecified (8) COPD (chronic obstructive pulmonary disease) Current visit: Yes Status: Chronic C
--- NOTE | 2017-06-02 14:11 | PC.NURSE ---
Old drsg removed. Blood clot noted at insertion site. Surgicel wrapped around peg tube at insertion site per Dr Sim's orders and covered with 4x4 gauze sponge. ABD binder placed on pt. Pt tolerated procedure /s incident.
--- NOTE | 2017-06-02 18:43 | PC.NURSE ---
1843 - Pt A&Ox3. VSS. Afebrile. Heart rate irreg (a-fib). Lungs CTA with crackles at bases. O2@50% Venti mask. Sats remained > 90% throughout shift. Abd soft and non-tender /c active BS x all quads. Pt denies c/o at this time. Pt has remained in bed with HOB elevated this shift. Will continue to monitor.
--- NOTE | 2017-06-02 19:03 | PC.NURSE ---
Report given to Nery Orta RN
[2017-06-03] VITALS (16 sets, daily range): BP systolic 108–129; BP diastolic 55–73; PULSE 57–120; RESP 18–21; TEMP 36.1–36.8; O2SAT 94–97
--- NOTE | 2017-06-03 07:00 | PC.NURSE ---
NO ACUTE CHANGES NOTED. PT HAS REMAINED ON VENTI MASK 50% THIS SHIFT. PT AMBULATES TO [facility] NEEDED. PT REMAINS AFIB ON TELEMETRY WITH PERIODS OF UNCONTROLLED. MEDICATIONS ADMIN PER MAR. V/S ARE STABLE AT THIS TIME. WILL CONTINUE TO MONITOR.
--- NOTE | 2017-06-03 07:23 | SW/DCPLANNER ---
Went in this morning to see this patient: Patient sitting up in bed attempting to eat his breakfast, mask on for comfort.. He stated he wants to transfer to , stating he needs chemo, radiation and rehab because he lives alone and has to care for himself...I explained to him that I would wait and see what Dr Calix says this morning after he makes rounds and assist with any plans that he feels is best for this patient...disposition uncertain at this time....
--- NOTE | 2017-06-03 09:28 | HMH.ACPN2 ---
Internal Medicine - PN: Subj *Date: 06/03/17 *Time: 09:33 Interval history: He is better. He used the Venturi mask through the night. Exam Vital signs and Labs for Last 24 Hours: Temp Pulse Resp BP Pulse Ox 97.6 F 61 18 127/56 96 06/03/17 07:59 06/03/17 08:44 06/03/17 07:52 06/03/17 07:52 06/03/17 07:52 Laboratory Results - last 24 hr 06/03/17 08:18: Vancomycin Trough 15.0 I & O for Last 24 hours: Intake & Output 05/31/17 06/01/17 06/02/17 06/03/17 11:59 11:59 11:59 11:59 Intake Total 1562 / 1562 2801 / 2801 3622 / 3622 3946 / 3946 Output Total 2049 / 2049 3050 / 3050 2750 / 2750 3950 / 3950 Balance -488 / -488 -249 / -249 872 / 872 -4 / -4 Weight 231 lb 8 oz 231 lb 8 oz 230 lb 2 oz - *Routine Respiratory Exam Present: rales, rhonchi Comments: More right than left - *Routine Cardiovascular Exam Present: irregularly irregular - *Routine Extremities Exam Comments: No leg edema. - *Routine Neurological Exam Present: alert, oriented X3 Assessment and Plan (1) Bilateral pneumonia Current visit: Yes Status: Acute Qualifiers: Pneumonia type: due to unspecified organism Lung location: unspecified part of lung Qualified Code(s): J18.9 - Pneumonia, unspecified organism Category: Medical Code(s): J18.9 - Pneumonia, unspecified organism (2) Carcinoma, lung Current visit: Yes Status: Chronic Category: Medical Code(s): C34.90 - Malignant neoplasm of unspecified part of unspecified bronchus or lung (3) Paroxysmal A-fib Current visit: Yes Status: Chronic Category: Medical Code(s): I48.0 - Paroxysmal atrial fibrillation (4) CAD (coronary artery disease) Current visit: Yes Status: Acute Category: Medical Code(s): I25.10 - Atherosclerotic heart disease of [place] coronary artery without angina pectoris (5) Respiratory failure Current visit: Yes Status: Acute Category: Medical Code(s): J96.90 - Respiratory failure, unspecified, unspecified whether with hypoxia or hypercapnia (6) Hypertension Current visit: Yes Status: Chronic Category: Medical Code(s): I10 - Essential (primary) hypertension (7) Hypothyroidism Current visit: Yes Status: Chronic Category: Medical Code(s): E03.9 - Hypothyroidism, unspecified (8) COPD (chronic obstructive pulmonary disease) Current visit: Yes Status: Chronic Category: Medical Code(s): J44.9 - Chronic obstructive pulmonary disease, unspecified (9) Anemia of chronic disease Current visit: Yes Status: Chronic Category: Medical Code(s): D63.8 - Anemia in other chronic diseases classified elsewhere - Assessment and plan all Dx Assessment and Plan for all problems:: CXR report pending
[2017-06-03 10:09] LABS: Basophils % 0.1 % (0.1-2.0); Eosinophils # 0.1 K/mm3 (0.0-0.4); Eosinophils % 0.3 % (0.1-12.0); Hematocrit 44.8 % (42.0-52.0); Hemoglobin 14.2 g/dL (14.1-18.0); Lymphocytes # 0.4 K/mm3 (0.7-4.5); Lymphocytes % 1.6 K/mm3 (10-50); Mean Corpuscular HGB Conc 31.6 g/dL (31.8-35.4); Mean Corpuscular Hemoglobin 27.5 pg (27.0-31.2); Mean Corpuscular Volume 87.1 fl (80-94); Mean Platelet Volume 7.8 fl (7.4-10.4); Monocytes # 0.8 K/mm3 (0.1-1.0); Monocytes % 3.8 % (1.7-9.3); Neutrophils # 20.4 K/mm3 (1.8-7.8); Neutrophils % 94.1 % (37.0-80.0); Platelet Count 305 K/mm3 (142-424); Red Blood Count 5.15 M/mm3 (4.60-6.20); Red Cell Distribution Width 15.8 % (11.5-17.5); White Blood Count 21.7 K/mm3 (4.8-10.8)
[2017-06-03 10:11] LABS: MANUAL DIFFERENTIAL MANUAL DIFFERENTIAL (MANUAL DIFF)
[2017-06-03 10:17] LABS: Anion Gap 6.3 mEq/L (5-15); Blood Urea Nitrogen 34 mg/dL (7-18); Carbon Dioxide 34 mmol/L (21.0-32.0); Chloride 98 mmol/L (98-107); Creatinine Clearance Estimated 108 mL/min (0-300); Estimated Glomerular Filt Rate 69 ml/min (>60); GFR (African American) 83 ML/MIN (>60); Glucose 233 mg/dL (74-106); Potassium 4.3 mmoL/L (3.5-5.1); Sodium 134 mmol/L (136-145)
[2017-06-03 10:26] LABS: Lymphocytes % 3 % (10-50); Monocytes % 2 % (2-9); Neutrophils % 95 % (42-76); Platelet Estimate Normal; RBC Morphology Normal; Total Cells Counted 100
--- NOTE | 2017-06-03 13:19 | DIET.NUTRFU ---
PT CONSUMING 75-100% OF MEALS ON REG DIET. GLUCOSE 226,233, PT IS ON METHYLPREDNISONE. ABLUMIN 2.1. ADEQUATE NUTRITIONAL INTAKE. WILL MONITOR.
--- NOTE | 2017-06-03 16:26 | HMH.PHACONS ---
- Pharmacy Consult Date: 06/03/17 Time: 16:26 Referring provider: DR. MARR Reason for Consult:: VANCOMYCIN TROUGH LEVEL Allergies and ADEs:: Allergies Allergy/AdvReac Type Severity Reaction Status Date / Time acetaminophen [From TYLENOL] Allergy Mild NA-NAUSEA/V Verified 05/08/17 12:38 OMITING Home Medications:: Home Medications Medication Instructions Recorded Confirmed Type Albuterol Sulfate [Albuterol HFA 2 puffs IH QIDP PRN 05/24/17 05/24/17 History Inhaler] Atorvastatin Calcium [Atorvastatin 40 mg PO HS 05/24/17 05/24/17 History 40mg Tab] Benzonatate [Benzonatate 100mg 100 mg PO TIDP PRN 05/24/17 05/24/17 History cap] Cholecalciferol (Vitamin D3) 2,000 unit PO DAILY 05/24/17 05/24/17 History [Vitamin D3] Gabapentin [Gabapentin 800mg Tab] 800 mg PO QID 05/24/17 05/24/17 History Ibuprofen [Ibuprofen 600mg Tab] 600 mg PO QID 05/24/17 05/24/17 History LORazepam [Ativan 0.5mg tablet] 0.5 mg PO HS 05/24/17 05/24/17 History Lidocaine HCl [Lidocaine viscous 5 ml PO DIRECTED 05/24/17 05/24/17 History 100mL bottle] Lisinopril [Lisinopril 10mg Tab] 10 mg PO DAILY 05/24/17 05/24/17 History Multivitamin [Multivitamins] 1 each PO DAILY 05/24/17 05/24/17 History Omeprazole [Omeprazole 20mg 20 mg PO DAILY 05/24/17 05/24/17 History Capsule] Rivaroxaban [Xarelto] 20 mg PO DAILY 05/24/17 05/24/17 History Trazodone HCl 100 mg PO HS 05/24/17 05/24/17 History Triamterene/Hydrochlorothiazid 1 cap PO DAILY 05/24/17 05/24/17 History [Maxzide-25 tablet] dilTIAZem HCl [Cartia Xt] 240 mg PO DAILY 05/24/17 05/24/17 History fentaNYL [fentaNYL 25mcg/patch] 25 mcg TD Q72H 05/24/17 05/24/17 History levoFLOXacin [Levofloxacin 750MG 750 mg PO DAILY 05/24/17 05/24/17 History Tablet] Height: 1.8 m Weight: 104.383 kg Laboratory Results:: Laboratory Results - last 24 hr 06/03/17 08:18: Vancomycin Trough 15.0 06/03/17 09:55: WBC 21.7 H*, RBC 5.15, Hgb 14.2, Hct 44.8, MCV 87.1, MCH 27.5, MCHC 31.6 L, RDW 15.8, Plt Count 305, MPV 7.8, Neut % (Auto) 94.1 H, Lymph % (Auto) 1.6 L, [place] % (Auto) 3.8, Eos % (Auto) 0.3, Baso % (Auto) 0.1, Neut # (Auto) 20.4 H, Lymph # (Auto) 0.4 L, [place] # (Auto) 0.8, Eos # (Auto) 0.1, Baso # (Auto) 0.0, Total Counted 100, Neutrophils % (Manual) 95 H, Lymphocytes % (Manual) 3 L, Monocytes % (Manual) 2, Platelet Estimate Normal, RBC Morphology Normal 06/03/17 09:55: Sodium 134 L, Potassium 4.3, Chloride 98, Carbon Dioxide 34 H, Anion Gap 6.3, BUN 34 H, Creatinine 1.10, Estimated Creat Clear 108, Estimated GFR 69, Est GFR ( Amer) 83, Glucose 233 H Medical History: Reports:: Anxiety, Atrial Fibrillation, Cancer, Congestive Heart Failure, Chronic Obstructive Pulmonary Disease (COPD), Depression, Hypertension Denies:: Diabetes Mellitus Type 1, Diabetes Mellitus Type 2, MRSA Assessment and Plan (1) Bilateral pneumonia Current visit: Yes Status: Acute Qualifiers: Pneumonia type: due to unspecified organism Lung location: unspecified part of lung Qualified Code(s): J18.9 - Pneumonia, unspecified organism Category: Medical Code(s): J18.9 - Pneumonia, unspecified organism (2) Carcinoma, lung Current visit: Yes Status: Chronic Category: Medical Code(s): C34.90 - Malignant neoplasm of unspecified part of unspecified bronchus or lung (3) Paroxysmal A-fib Current visit: Yes Status: Chronic Category: Medical Code(s): I48.0 - Paroxysmal atrial fibrillation (4) CAD (coronary artery disease) Current visit: Yes Status: Acute Category: Medical Code(s): I25.10 - Atherosclerotic heart disease of [place] coronary artery without angina pectoris (5) Respiratory failure Current visit: Yes Status: Acute Category: Medical Code(s): J96.90 - Respiratory failure, unspecified, unspecified whether with hypoxia or hypercapnia (6) Hypertension Current visit: Yes Status: Chronic Category: Medical Code(s): I10 - Essential (primary) hyper
--- NOTE | 2017-06-03 19:57 | PC.NURSE ---
pt is resting in bed. tolerated sitting up in the chair earlier in the shift, o2 saturations maintained in the mis 90's this shift on the 50% venti mask but pt would drop to the 70's when sitting on the sob to eat meals. lung sounds diminished, bowel sounds normal, uop QS, will continue to monitor.
[2017-06-04] VITALS (18 sets, daily range): BP systolic 111–133; BP diastolic 67–75; PULSE 54–155; RESP 18–20; TEMP 18.5–36.8; O2SAT 91–96
--- NOTE | 2017-06-04 03:10 | PC.NURSE ---
LAYING IN BED RESTING. HAS SLEPT MOST OF NIGHT. WEARING VENTI MASK AT 50%. SATS BEEN IN THE LOW 90'S. LUNGS ARE DIMINISHED. RESP ARE EVEN AND NONLABORED. DESATS WHEN 02 IS OFF FOR A SHORT PERIOD TO EAT OR DRINK. DROPS TO 70'S-80'S. HAS STOOD UP AT BEDSIDE TO USE URINAL. STATES FEELS VERY WEAK. MD NOTE STATES GOING TO CHECK FOR A BED AT RELATED TO LUNG CANCER AND PATIENT CONDITION. STATES HAS NO NEEDS AT THIS TIME. BED LOCKED IN LOW POSITION, SIDE RALES UP X 2. WILL CONTINUE TO MONITOR.
--- NOTE | 2017-06-04 09:20 | XR_ITS ---
XR chest 2V HISTORY: ITS.REASON: pneumonia, lung cancer ORDERING PHYSICIAN: Karey Lopez MD PATIENT AGE: 56 years COMPARISON: 06/02/2017 FINDINGS: Bilateral diffuse pneumonia once again noted and may be slightly improved. Normal heart size. Loop recorder device in place. Patient with a known left infrahilar mass somewhat obscured. IMPRESSION: Persistent bilateral pneumonia slightly improved
--- NOTE | 2017-06-04 09:21 | HMH.ACPN2 ---
Internal Medicine - PN: Subj *Date: 06/04/17 *Time: 09:21 Interval history: He continues to slowly progress. He was seen by physical therapy yesterday with a good report. He slept through the night with his Venturi mask only. We need to try to wean him to nasal cannula in order to discharge. He has no leg edema. He has bibasilar rales. I will repeat his chest x-ray today. Exam Vital signs and Labs for Last 24 Hours: Temp Pulse Resp BP Pulse Ox 96.9 F L 110 H 20 111/73 94 L 06/04/17 04:49 06/04/17 05:50 06/04/17 04:49 06/04/17 04:49 06/04/17 05:50 Laboratory Results - last 24 hr 06/03/17 09:55: WBC 21.7 H*, RBC 5.15, Hgb 14.2, Hct 44.8, MCV 87.1, MCH 27.5, MCHC 31.6 L, RDW 15.8, Plt Count 305, MPV 7.8, Neut % (Auto) 94.1 H, Lymph % (Auto) 1.6 L, [place] % (Auto) 3.8, Eos % (Auto) 0.3, Baso % (Auto) 0.1, Neut # (Auto) 20.4 H, Lymph # (Auto) 0.4 L, [place] # (Auto) 0.8, Eos # (Auto) 0.1, Baso # (Auto) 0.0, Total Counted 100, Neutrophils % (Manual) 95 H, Lymphocytes % (Manual) 3 L, Monocytes % (Manual) 2, Platelet Estimate Normal, RBC Morphology Normal 06/03/17 09:55: Sodium 134 L, Potassium 4.3, Chloride 98, Carbon Dioxide 34 H, Anion Gap 6.3, BUN 34 H, Creatinine 1.10, Estimated Creat Clear 108, Estimated GFR 69, Est GFR ( Amer) 83, Glucose 233 H I & O for Last 24 hours: Intake & Output 06/01/17 06/02/17 06/03/17 06/04/17 11:59 11:59 11:59 11:59 Intake Total 2801 / 2801 3622 / 3622 4306 / 4306 1835 / 1835 Output Total 3050 / 3050 2750 / 2750 3950 / 3950 2450 / 2450 Balance -249 / -249 872 / 872 356 / 356 -615 / -615 Weight 231 lb 8 oz 231 lb 8 oz 230 lb 2 oz 232 lb 6 oz - *Routine Respiratory Exam Present: rales. Absent: respiratory distress - *Routine Cardiovascular Exam Present: tachycardia, irregular rhythm - *Routine Extremities Exam Absent: edema - *Routine Neurological Exam Present: alert, oriented X3 Assessment and Plan (1) Bilateral pneumonia Current visit: Yes Status: Acute Qualifiers: Pneumonia type: due to unspecified organism Lung location: unspecified part of lung Qualified Code(s): J18.9 - Pneumonia, unspecified organism Category: Medical Code(s): J18.9 - Pneumonia, unspecified organism (2) Carcinoma, lung Current visit: Yes Status: Chronic Category: Medical Code(s): C34.90 - Malignant neoplasm of unspecified part of unspecified bronchus or lung (3) Paroxysmal A-fib Current visit: Yes Status: Chronic Category: Medical Code(s): I48.0 - Paroxysmal atrial fibrillation (4) CAD (coronary artery disease) Current visit: Yes Status: Acute Category: Medical Code(s): I25.10 - Atherosclerotic heart disease of [place] coronary artery without angina pectoris (5) Respiratory failure Current visit: Yes Status: Acute Category: Medical Code(s): J96.90 - Respiratory failure, unspecified, unspecified whether with hypoxia or hypercapnia (6) Hypertension Current visit: Yes Status: Chronic Category: Medical Code(s): I10 - Essential (primary) hypertension (7) Hypothyroidism Current visit: Yes Status: Chronic Category: Medical Code(s): E03.9 - Hypothyroidism, unspecified (8) COPD (chronic obstructive pulmonary disease) Current visit: Yes Status: Chronic Category: Medical Code(s): J44.9 - Chronic obstructive pulmonary disease, unspecified (9) Anemia of chronic disease Current visit: Yes Status: Chronic Category: Medical Code(s): D63.8 - Anemia in other chronic diseases classified elsewhere - Assessment and plan all Dx Assessment and Plan for all problems:: As above
--- NOTE | 2017-06-04 09:24 | P.PN_ITS ---
Internal Medicine - PN: Subj *Date: 06/04/17 *Time: 09:21 Interval history: He continues to slowly progress. He was seen by physical therapy yesterday with a good report. He slept through the night with his Venturi mask only. We need to try to wean him to nasal cannula in order to discharge. He has no leg edema. He has bibasilar rales. I will repeat his chest x-ray today. Exam Vital signs and Labs for Last 24 Hours: Temp Pulse Resp BP Pulse Ox 96.9 F L 110 H 20 111/73 94 L 06/04/17 04:49 06/04/17 05:50 06/04/17 04:49 06/04/17 04:49 06/04/17 05:50 Laboratory Results - last 24 hr 06/03/17 09:55: WBC 21.7 H*, RBC 5.15, Hgb 14.2, Hct 44.8, MCV 87.1, MCH 27.5, MCHC 31.6 L, RDW 15.8, Plt Count 305, MPV 7.8, Neut % (Auto) 94.1 H, Lymph % ( Auto) 1.6 L, [place] % (Auto) 3.8, Eos % (Auto) 0.3, Baso % (Auto) 0.1, Neut # ( Auto) 20.4 H, Lymph # (Auto) 0.4 L, [place] # (Auto) 0.8, Eos # (Auto) 0.1, Baso # (Auto) 0.0, Total Counted 100, Neutrophils % (Manual) 95 H, Lymphocytes % ( Manual) 3 L, Monocytes % (Manual) 2, Platelet Estimate Normal, RBC Morphology Normal 06/03/17 09:55: Sodium 134 L, Potassium 4.3, Chloride 98, Carbon Dioxide 34 H, Anion Gap 6.3, BUN 34 H, Creatinine 1.10, Estimated Creat Clear 108, Estimated GFR 69, Est GFR ( Amer) 83, Glucose 233 H I & O for Last 24 hours: Intake & Output 06/01/17 06/02/17 06/03/17 06/04/17 11:59 11:59 11:59 11:59 Intake Total 2801 / 2801 3622 / 3622 4306 / 4306 1835 / 1835 Output Total 3050 / 3050 2750 / 2750 3950 / 3950 2450 / 2450 Balance -249 / -249 872 / 872 356 / 356 -615 / -615 Weight 231 lb 8 oz 231 lb 8 oz 230 lb 2 oz 232 lb 6 oz - *Routine Respiratory Exam Present: rales. Absent: respiratory distress - *Routine Cardiovascular Exam Present: tachycardia, irregular rhythm - *Routine Extremities Exam Absent: edema - *Routine Neurological Exam Present: alert, oriented X3 Assessment and Plan (1) Bilateral pneumonia Current visit: Yes Status: Acute Qualifiers: Pneumonia type: due to unspecified organism Lung location: unspecified part of lung Qualified Code(s): J18.9 - Pneumonia, unspecified organism Category: Medical Code(s): J18.9 - Pneumonia, unspecified organism (2) Carcinoma, lung Current visit: Yes Status: Chronic Category: Medical Code(s): C34.90 - Malignant neoplasm of unspecified part of unspecified bronchus or lung (3) Paroxysmal A-fib Current visit: Yes Status: Chronic Category: Medical Code(s): I48.0 - Paroxysmal atrial fibrillation (4) CAD (coronary artery disease) Current visit: Yes Status: Acute Category: Medical Code(s): I25.10 - Atherosclerotic heart disease of [place] coronary artery without angina pectoris (5) Respiratory failure Current visit: Yes Status: Acute Category: Medical Code(s): J96.90 - Respiratory failure, unspecified, unspecified whether with hypoxia or hypercapnia (6) Hypertension Current visit: Yes Status: Chronic Category: Medical Code(s): I10 - Essential (primary) hypertension (7) Hypothyroidism Current visit: Yes Status: Chronic Category: Medical Code(s): E03.9 - Hypothyroidism, unspecified (8) COPD (chronic obstructive pulmonary disease) Current visit: Yes Status: Chronic Category: Medical Code(s): J44.9 - Chronic obstructive pulmonary disease, unspecified (9) Anemia of chronic disease Current visit: Yes Status: Chronic Category: Medical Code(s): D63.8 - Anemia i
[2017-06-04 09:55] LABS: Digoxin 0.39 ng/mL (1.15-2.56)
--- NOTE | 2017-06-04 14:34 | HMH.CARDPN2 ---
Subjective PN (PG) Date: 06/04/17 Time: 14:35 Principal diagnosis: A.fib Interval history: Asked to place note on chart regarding A. fib. Pt now with sustained rates in the 130-140's. Will increase Bisoprolol to 20 mg daily and use Jordi gtt for BP support if needed. Will need to consider AV node ablation and pacer insertion if unable to get improvement with above treatment. PN Exam ([facility] Owned) Vital signs: Temp Pulse Resp BP Pulse Ox 98.2 F 130 H 20 119/73 92 L 06/04/17 12:00 06/04/17 13:55 06/04/17 12:00 06/04/17 12:00 06/04/17 12:00 - Routine Respiratory Exam Present: rhonchi - Routine Cardiovascular Exam Present: tachycardia A/P Progress Note ([facility] Owned) (1) Paroxysmal A-fib Status: Chronic Current Visit: Yes (2) CAD (coronary artery disease) Status: Acute Current Visit: Yes (3) Bilateral pneumonia Status: Acute Current Visit: Yes (4) Carcinoma, lung Status: Chronic Current Visit: Yes (5) Hypertension Status: Chronic Current Visit: Yes (6) Hypothyroidism Status: Chronic Current Visit: Yes (7) COPD (chronic obstructive pulmonary disease) Status: Chronic Current Visit: Yes (8) Respiratory failure Status: Acute Current Visit: Yes (9) Anemia of chronic disease Status: Chronic Current Visit: Yes
--- NOTE | 2017-06-04 14:37 | P.PN_ITS ---
Subjective PN (PG) Date: 06/04/17 Time: 14:35 Principal diagnosis: A.fib Interval history: Asked to place note on chart regarding A. fib. Pt now with sustained rates in the 130-140's. Will increase Bisoprolol to 20 mg daily and use Jordi gtt for BP support if needed. Will need to consider AV node ablation and pacer insertion if unable to get improvement with above treatment. PN Exam ([facility]) Vital signs: Temp Pulse Resp BP Pulse Ox 98.2 F 130 H 20 119/73 92 L 06/04/17 12:00 06/04/17 13:55 06/04/17 12:00 06/04/17 12:00 06/04/17 12:00 - Routine Respiratory Exam Present: rhonchi - Routine Cardiovascular Exam Present: tachycardia A/P Progress Note ([facility]) (1) Paroxysmal A-fib Status: Chronic Current Visit: Yes (2) CAD (coronary artery disease) Status: Acute Current Visit: Yes (3) Bilateral pneumonia Status: Acute Current Visit: Yes (4) Carcinoma, lung Status: Chronic Current Visit: Yes (5) Hypertension Status: Chronic Current Visit: Yes (6) Hypothyroidism Status: Chronic Current Visit: Yes (7) COPD (chronic obstructive pulmonary disease) Status: Chronic Current Visit: Yes (8) Respiratory failure Status: Acute Current Visit: Yes (9) Anemia of chronic disease Status: Chronic Current Visit: Yes
--- NOTE | 2017-06-04 20:01 | PC.NURSE ---
PT HAS BEEN RESTING IN THE BED T/O THE SHIFT, PT HAS ONLY TOLERATED SITTING UP ON THE SOB FOR MEALS, STATED HE DID NOT WANT TO SIT UP IN THE CHAIR DUE TO WHEN HE STOOD UP FOR RADIOLOGY THIS MORNING HE BECAME DIZZY. IT WAS REPORTED TO PCP THIS MORNING DURING ROUND PT 'S HR WAS IN THE 130'S. AFTER GIVING PT HIS MORNING MEDICATIONS HR STILL DID NOT COME DOWN SO I NOTIFIED PCP IN THE OFFICE AND HE INCREASED SOME OF HIS MEDS AND RECOMMENDED CARDIOLOGY SEEN PT AGAIN. EKG WAS ORDERED AND RESULTS AND IT SHOWED AFIB WITH RVR SO BUBBA CONTRERAS WAS NOTIFIED AND HE GOT BACK WITH ME AFTER HE DISCUSSED EVERYTHING WITH DR. ESCOBAR. BISPROLOL 20 MG WAS ORDERED AND A NEOSYNEPHRINE DRIP FOR PT'S BP IF NEEDED. ABOUT AN HOUR AFTER BISPROLOL HR STARTED TO DECREASE 90-110. BP HAS BEEN MONITORED CLOSELY AND HIS SBP HAS BEEN ABOVE 115. REPORT WAS GIVEN TO NIGHT NURSE.
[2017-06-05] VITALS (17 sets, daily range): BP systolic 100–126; BP diastolic 56–78; PULSE 57–100; RESP 18–22; TEMP 36.4–36.7; O2SAT 91–98
--- NOTE | 2017-06-05 03:52 | PC.NURSE ---
laying in bed resting. Has slept most of night. resp even and nonlabored at this time. Has soa with exertion such as sitting on side of bed. Lungs are diminished bilat. Has been on 50% venti all shift. 02 sat staying between 87-90 fluctuating. heart rate also fluctuating between 90-115. bp has sustained within normal range. last check 125/70. States has no needs. IV is patent, bed locked in low position, side rales up x 2, call cade within reach. Will continue to monitor.
--- NOTE | 2017-06-05 08:02 | P.PN_ITS ---
Internal Medicine - PN: Subj *Date: 06/05/17 *Time: 07:59 Interval history: Patient states he feels slightly better today. He is still on the mask. Continues to be short of breath. He did sleep off and on going to try to eat breakfast this morning. He states he has his normal pain. Exam Vital signs and Labs for Last 24 Hours: Temp Pulse Resp BP Pulse Ox 98.0 F 79 20 111/74 94 L 06/05/17 07:50 06/05/17 07:50 06/05/17 07:50 06/05/17 07:50 06/05/17 07:50 Laboratory Results - last 24 hr 06/04/17 09:30: Digoxin 0.39 L I & O for Last 24 hours: Intake & Output 06/02/17 06/03/17 06/04/17 06/05/17 11:59 11:59 11:59 11:59 Intake Total 3622 / 3622 4306 / 4306 1835 / 1835 960 / 960 Output Total 2750 / 2750 3950 / 3950 2450 / 2450 2700 / 2700 Balance 872 / 872 356 / 356 -615 / -615 -1740 / -1740 Weight 231 lb 8 oz 230 lb 2 oz 232 lb 6 oz 229 lb 5 oz Radiology Reports for the Last 24 Hours: CXR - Persistent but slightly improved pneumonia - Constitutional no acute distress - *Routine Respiratory Exam Present: crackles (bibasilar) - *Routine Cardiovascular Exam Present: irregularly irregular - *Routine Abdominal Exam Present: soft, normoactive bowel sounds. Absent: tenderness - *Routine Extremities Exam Absent: edema Assessment and Plan (1) Bilateral pneumonia Current visit: Yes Status: Acute Qualifiers: Pneumonia type: due to unspecified organism Lung location: unspecified part of lung Qualified Code(s): J18.9 - Pneumonia, unspecified organism Category: Medical Code(s): J18.9 - Pneumonia, unspecified organism (2) Carcinoma, lung Current visit: Yes Status: Chronic Category: Medical Code(s): C34.90 - Malignant neoplasm of unspecified part of unspecified bronchus or lung (3) Paroxysmal A-fib Current visit: Yes Status: Chronic Category: Medical Code(s): I48.0 - Paroxysmal atrial fibrillation (4) CAD (coronary artery disease) Current visit: Yes Status: Acute Category: Medical Code(s): I25.10 - Atherosclerotic heart disease of [place] coronary artery without angina pectoris (5) Respiratory failure Current visit: Yes Status: Acute Category: Medical Code(s): J96.90 - Respiratory failure, unspecified, unspecified whether with hypoxia or hypercapnia (6) Hypertension Current visit: Yes Status: Chronic Category: Medical Code(s): I10 - Essential (primary) hypertension (7) Hypothyroidism Current visit: Yes Status: Chronic Category: Medical Code(s): E03.9 - Hypothyroidism, unspecified (8) COPD (chronic obstructive pulmonary disease) Current visit: Yes Status: Chronic Category: Medical Code(s): J44.9 - Chronic obstructive pulmonary disease, unspecified (9) Anemia of chronic disease Current visit: Yes Status: Chronic Category: Medical Code(s): D63.8 - Anemia in other chronic diseases classified elsewhere - Assessment and plan all Dx Assessment and Plan for all problems:: Pt still on a mask. He will need to be weaned to nasal cannula to be discharged. Chest x-ray shows slight improvement. Cardiology note reviewed from yesterday.
--- NOTE | 2017-06-05 09:17 | HMH.CARDPN2 ---
Subjective PN (PG) Date: 06/05/17 Time: 09:17 Principal diagnosis: A.fib Interval history: Pt in bed in NAD. States he is tired but denies any chest pains. HR has improved on increased meds. Still in A. fib on telemetry. Still requiring venti-mask. PN Exam ([facility]) Vital signs: Temp Pulse Resp BP Pulse Ox 98.0 F 79 20 111/74 94 L 06/05/17 07:50 06/05/17 08:08 06/05/17 07:50 06/05/17 07:50 06/05/17 07:50 - Routine Respiratory Exam Present: rhonchi - Routine Cardiovascular Exam Present: irregularly irregular A/P Progress Note ([facility]) (1) Paroxysmal A-fib Status: Chronic Assessment and plan: Improved control on increased diltiazem and bisoprolol along with digoxin. Continue current meds. Current Visit: Yes (2) CAD (coronary artery disease) Status: Acute Current Visit: Yes (3) Bilateral pneumonia Status: Acute Current Visit: Yes (4) Carcinoma, lung Status: Chronic Current Visit: Yes (5) Hypertension Status: Chronic Current Visit: Yes (6) Hypothyroidism Status: Chronic Current Visit: Yes (7) COPD (chronic obstructive pulmonary disease) Status: Chronic Current Visit: Yes (8) Respiratory failure Status: Acute Current Visit: Yes (9) Anemia of chronic disease Status: Chronic Current Visit: Yes
--- NOTE | 2017-06-05 13:43 | DIET.NUTRFU ---
day 13 hospital stay. He remains on venti mask and takes it off long enough to eat. He reports is takes from lunch to dinner time to finish a meal. Appetite remains good and po intakes are reported at 100%. He is receiving extra margarine, salt and pepper to help season foods to his taste. weight is stable. Educated pt on food selections that require minimal effort to eat. He has never tried an Ensure and will provide on this afternoon to sample. Ensure may be suitable nutritional supplement for between meals.
--- NOTE | 2017-06-05 14:14 | PC.NURSE ---
spoke with jeimy betts about phenylephrine order in jun. stated that if patient systolic bp was to drop below 90 then to start the drip and place patient in stepdown. spoke with sergo in pharmacy who changed the order in jun to a prn so that staff would have it on there if it was needed.
--- NOTE | 2017-06-05 18:45 | PC.NURSE ---
PATIENT HAS HAD A GOOD DAY. HEART RATE HAS REMAINED IN NORMAL LIMITS, WELL BP. HE HAS RANG OUT NEEDED. REMAINS ON VENTI, DROPPING QUICKLY WHEN TAKEN OFF. A LITTLE ANXIOUS AT TIMES, AND NOT HAPPY ABOUT POSSIBLY GOING TO [facility]. PATIENT EDUCATED ON REASONING WHY DOCTORS WANTED HIM TO GO. VSS WILL ONTINUE TO MONITOR.
[2017-06-06] VITALS (14 sets, daily range): BP systolic 107–122; BP diastolic 64–77; PULSE 60–112; RESP 18–20; TEMP 36.3–36.6; O2SAT 94–96
--- NOTE | 2017-06-06 08:24 | HMH.ACPN2 ---
Internal Medicine - PN: Subj *Date: 06/06/17 *Time: 08:24 Interval history: Patient still short of breath today. He has tried to take his oxygen off to eat, but can only leave it off for a few seconds before he is unable to breathe. His pain is at baseline. Exam Vital signs and Labs for Last 24 Hours: Temp Pulse Resp BP Pulse Ox 97.8 F 78 20 116/66 96 06/06/17 07:40 06/06/17 07:40 06/06/17 07:40 06/06/17 07:40 06/06/17 07:40 I & O for Last 24 hours: Intake & Output 06/03/17 06/04/17 06/05/17 06/06/17 11:59 11:59 11:59 11:59 Intake Total 4306 / 4306 1835 / 1835 960 / 960 840 / 840 Output Total 3950 / 3950 2450 / 2450 2700 / 2700 2300 / 2300 Balance 356 / 356 -615 / -615 -1740 / -1740 -1460 / -1460 Weight 230 lb 2 oz 232 lb 6 oz 229 lb 5 oz 228 lb 4 oz - Constitutional mild distress (with oxygen mask off this am) - *Routine Respiratory Exam Present: decreased breath sounds, respiratory distress (when oxygen mask is removed) - *Routine Cardiovascular Exam Present: irregularly irregular - *Routine Abdominal Exam Present: soft, normoactive bowel sounds. Absent: tenderness - *Routine Extremities Exam Present: edema Assessment and Plan (1) Bilateral pneumonia Current visit: Yes Status: Acute Qualifiers: Pneumonia type: due to unspecified organism Lung location: unspecified part of lung Qualified Code(s): J18.9 - Pneumonia, unspecified organism Category: Medical Code(s): J18.9 - Pneumonia, unspecified organism (2) Carcinoma, lung Current visit: Yes Status: Chronic Category: Medical Code(s): C34.90 - Malignant neoplasm of unspecified part of unspecified bronchus or lung (3) Paroxysmal A-fib Current visit: Yes Status: Chronic Category: Medical Code(s): I48.0 - Paroxysmal atrial fibrillation (4) CAD (coronary artery disease) Current visit: Yes Status: Acute Category: Medical Code(s): I25.10 - Atherosclerotic heart disease of [place] coronary artery without angina pectoris (5) Respiratory failure Current visit: Yes Status: Acute Category: Medical Code(s): J96.90 - Respiratory failure, unspecified, unspecified whether with hypoxia or hypercapnia (6) Hypertension Current visit: Yes Status: Chronic Category: Medical Code(s): I10 - Essential (primary) hypertension (7) Hypothyroidism Current visit: Yes Status: Chronic Category: Medical Code(s): E03.9 - Hypothyroidism, unspecified (8) COPD (chronic obstructive pulmonary disease) Current visit: Yes Status: Chronic Category: Medical Code(s): J44.9 - Chronic obstructive pulmonary disease, unspecified (9) Anemia of chronic disease Current visit: Yes Status: Chronic Category: Medical Code(s): D63.8 - Anemia in other chronic diseases classified elsewhere - Assessment and plan all Dx Assessment and Plan for all problems:: Cardiology to follow. Note reviewed from yesterday. Patient still very short of breath today. Will have to wean to nasal oxygen before discharge is possible.
--- NOTE | 2017-06-06 09:47 | HMH.PNCARD ---
Subjective Date: 06/06/17 Time: 08:15 Principal diagnosis: A.fib Interval history: Still unable to wean off oxygen by venti-mask. HR controlled on current high doses of bisoprolol and diltiazem. BP stable. Discussed transfer to and patient expresses desire to proceed for both pulmonary and cardiac issues. Review of Systems - *Cardiovascular Reports shortness of breath, Reports shortness of breath with activity, Denies chest pain - *Respiratory Reports cough, Reports shortness of breath, Reports shortness of breath with activity - *Neurologic Reports headache(s), Reports dizziness Meds Home Medications Medication Instructions Recorded Confirmed Type Albuterol Sulfate [Albuterol HFA 2 puffs IH QIDP PRN 05/24/17 05/24/17 History Inhaler] Atorvastatin Calcium [Atorvastatin 40 mg PO HS 05/24/17 05/24/17 History 40mg Tab] Benzonatate [Benzonatate 100mg 100 mg PO TIDP PRN 05/24/17 05/24/17 History cap] Cholecalciferol (Vitamin D3) 2,000 unit PO DAILY 05/24/17 05/24/17 History [Vitamin D3] Gabapentin [Gabapentin 800mg Tab] 800 mg PO QID 05/24/17 05/24/17 History Ibuprofen [Ibuprofen 600mg Tab] 600 mg PO QID 05/24/17 05/24/17 History LORazepam [Ativan 0.5mg tablet] 0.5 mg PO HS 05/24/17 05/24/17 History Lidocaine HCl [Lidocaine viscous 5 ml PO DIRECTED 05/24/17 05/24/17 History 100mL bottle] Lisinopril [Lisinopril 10mg Tab] 10 mg PO DAILY 05/24/17 05/24/17 History Multivitamin [Multivitamins] 1 each PO DAILY 05/24/17 05/24/17 History Omeprazole [Omeprazole 20mg 20 mg PO DAILY 05/24/17 05/24/17 History Capsule] Rivaroxaban [Xarelto] 20 mg PO DAILY 05/24/17 05/24/17 History Trazodone HCl 100 mg PO HS 05/24/17 05/24/17 History Triamterene/Hydrochlorothiazid 1 cap PO DAILY 05/24/17 05/24/17 History [Maxzide-25 tablet] dilTIAZem HCl [Cartia Xt] 240 mg PO DAILY 05/24/17 05/24/17 History fentaNYL [fentaNYL 25mcg/patch] 25 mcg TD Q72H 05/24/17 05/24/17 History levoFLOXacin [Levofloxacin 750MG 750 mg PO DAILY 05/24/17 05/24/17 History Tablet] Allergies Allergy/AdvReac Type Severity Reaction Status Date / Time acetaminophen [From TYLENOL] Allergy Mild NA-NAUSEA/V Verified 05/08/17 12:38 OMITING Exam Vital signs and Labs for Last 24 Hours: Temp Pulse Resp BP Pulse Ox 97.8 F 78 20 116/66 96 06/06/17 07:40 06/06/17 09:09 06/06/17 07:40 06/06/17 07:40 06/06/17 07:40 I & O for Last 24 hours: Intake & Output 06/03/17 06/04/17 06/05/17 06/06/17 11:59 11:59 11:59 11:59 Intake Total 4306 / 4306 1835 / 1835 960 / 960 840 / 840 Output Total 3950 / 3950 2450 / 2450 2700 / 2700 2300 / 2300 Balance 356 / 356 -615 / -615 -1740 / -1740 -1460 / -1460 Weight 230 lb 2 oz 232 lb 6 oz 229 lb 5 oz 228 lb 4 oz - *Routine Respiratory Exam Present: diminished air movement - *Routine Cardiovascular Exam Present: irregularly irregular Plan - Patient/Caregiver Discharge Instructions Additional Instructions: Continue current meds. Agree with transfer to if that is decided by patient and Dr. Lopez. Nothing new to add at this time. Patient Instructions: DI for Feeding Tube Exchange, How to Use Your Feeding Tube - Follow Up Plan
--- NOTE | 2017-06-06 15:31 | PC.NURSE ---
Contacted [facility] '[facility] Bed Coordinator at 1234. at this time there are no available beds. [facility] MD's will call when bed is available. Called again at 1530. again at this time there are no available beds per [facility]. they state they will call when bed is available. Primary Care RN notified.
--- NOTE | 2017-06-06 15:41 | PC.NURSE ---
Lungs clear and diminsihed. Pt reports a somewhat productive cough with small amounts of thick greenish sputum. O2 sats running in low 90's on 50% venti. Pt reports soa on exertion. Appetite poor. Stage 2 decubitus and excoriation noted to buttocks. Pictures on chart. Polymem in place. [facility] contacted per [facility] for bed availability for pending transfer. No beds available as of yet. Will continue to monitor.
--- NOTE | 2017-06-06 19:22 | PC.NURSE ---
report given to geovanni lea rn
--- NOTE | 2017-06-11 14:13 | [facility].DCSUM ---
General - General Admission date: 05/23/17 Discharge date: 06/06/17 HPI HPI: Mr. Laboy is a 36-year-old white male with known left sided lung carcinoma. He was hospitalized at [facility] recently with pneumonia. He has been receiving radiation and chemo treatments at . He presented in the office of [facility] yesterday with extreme shortness of breath and hypoxia with a sat in the 70s. He was sent to the emergency room for stabilization. He was treated with IV steroids and supplemental oxygen. His oxygen came up to the 90s but with the nasal O2 turned up to 10 liters. He was started on Levaquin and vancomycin and Zosyn. He and his family report that he recently was doing better on a steroid taper but once the steroid taper had finished, he resumed having fever and congestion. He has had a fever for the past 8 days and has been on motrin and levaquin 750mg. This am, he is still very SOA. He states he feels about the same as he did yesterday. It is even hard for him to speak d/t the SOA. He hurts all over. Objective Vital signs: Temp Pulse Resp BP Pulse Ox 97.5 F L 71 20 122/67 94 L 06/06/17 19:52 06/06/17 19:52 06/06/17 19:52 06/06/17 19:52 06/06/17 19:52 Narrative: - Constitutional mild distress (respiratory) - *Routine HEENT Exam Head: Present: normocephalic, atraumatic Eye: Present: EOMI, PERRL ENT: Present: mucous membranes dry - *Routine Neck Exam Present: supple, full ROM - *Routine Respiratory Exam Present: decreased breath sounds, wheezes, diminished air movement (on left upper lobe) - *Routine Cardiovascular Exam Present: RRR - *Routine Abdominal Exam Present: soft, normoactive bowel sounds. Absent: tenderness - *Routine Extremities Exam Present: edema (1+ bilaterally) - *Routine Skin Exam Present: intact - *Routine Neurological Exam Present: alert, oriented X3 Hospital Course Hospital Course: His CXR showed bilateral pneumonia. He was started on three abx, steroids, and nebs. He became hypoxic and had to be started on BIPAP. He did develop considerable edema and had to be given lasix. A repeat CXR showed some improvement in the pneumonia but development of CHF. Lasix was scheduled. He went into atrial fib with rapid VR up to 190 and had to be given boluses of cardizem and placed on a gtt. He also received 2 doses of dig. He was weaned off the gtt and was started on Cardizem p.o. 240 mg, his digoxin was continued, and cardiology was consulted. They felt his Cardizem should be increased to p.o. 240 mg daily, his digoxin 0.25 mg daily should be continued, and bisoprolol 5 mg daily should be added and titrated as tolerated according to blood pressure and lung status. Patient did have a hx of pulmonary vein isolation ablation therapy for his atrial fibrillation in the past. They recommeded continuing Xarelto therapy for anticoagulation. They did not recommend proceeding with cardioversion d/t the patient's respiratory status. He had an Echocardiogram showing some left atrial enlargement along with some ventricular enlargement. His ejection fraction of 45% was consistent with past studies. The patient was off and on BIPAP throughout his stay. He remained on a venti-mask and was unable to be weaned to nasal oxygen. He had a CXR showing some improvement but still with persistent pneumonia. His sputum showed only normal respiratory wilber. Dr. Lopez spoke with Dr. Maurer who felt the patient should be transferred to the [facility] for further care of his pulmonary and cardiac issues. Dr. Dyer agreed to accept the patient on transfer. DS: Diagnosis - Discharge Diagnosis (1) Bilateral pneumonia Status: Acute (2) Carcinoma, lung Status: Chronic (3) Paroxysmal A-fib Status: Chronic (4) CAD (coronary artery disease) Status: Acute (5) Respiratory failure Status: Acute (6) Hypertension Stat
--- NOTE | 2017-06-11 14:20 | P.DS_ITS ---
General - General Admission date: 05/23/17 Discharge date: 06/06/17 HPI HPI: Mr. Laboy is a 36-year-old white male with known left sided lung carcinoma. He was hospitalized at [facility] recently with pneumonia. He has been receiving radiation and chemo treatments at . He presented in the office of [facility] yesterday with extreme shortness of breath and hypoxia with a sat in the 70s. He was sent to the emergency room for stabilization. He was treated with IV steroids and supplemental oxygen. His oxygen came up to the 90s but with the nasal O2 turned up to 10 liters. He was started on Levaquin and vancomycin and Zosyn. He and his family report that he recently was doing better on a steroid taper but once the steroid taper had finished, he resumed having fever and congestion. He has had a fever for the past 8 days and has been on motrin and levaquin 750mg. This am, he is still very SOA. He states he feels about the same as he did yesterday. It is even hard for him to speak d/t the SOA. He hurts all over. Objective Vital signs: Temp Pulse Resp BP Pulse Ox 97.5 F L 71 20 122/67 94 L 06/06/17 19:52 06/06/17 19:52 06/06/17 19:52 06/06/17 19:52 06/06/17 19:52 Narrative: - Constitutional mild distress (respiratory) - *Routine HEENT Exam Head: Present: normocephalic, atraumatic Eye: Present: EOMI, PERRL ENT: Present: mucous membranes dry - *Routine Neck Exam Present: supple, full ROM - *Routine Respiratory Exam Present: decreased breath sounds, wheezes, diminished air movement (on left upper lobe) - *Routine Cardiovascular Exam Present: RRR - *Routine Abdominal Exam Present: soft, normoactive bowel sounds. Absent: tenderness - *Routine Extremities Exam Present: edema (1+ bilaterally) - *Routine Skin Exam Present: intact - *Routine Neurological Exam Present: alert, oriented X3 Hospital Course Hospital Course: His CXR showed bilateral pneumonia. He was started on three abx, steroids, and nebs. He became hypoxic and had to be started on BIPAP. He did develop considerable edema and had to be given lasix. A repeat CXR showed some improvement in the pneumonia but development of CHF. Lasix was scheduled. He went into atrial fib with rapid VR up to 190 and had to be given boluses of cardizem and placed on a gtt. He also received 2 doses of dig. He was weaned off the gtt and was started on Cardizem p.o. 240 mg, his digoxin was continued, and cardiology was consulted. They felt his Cardizem should be increased to p.o. 240 mg daily, his digoxin 0.25 mg daily should be continued, and bisoprolol 5 mg daily should be added and titrated as tolerated according to blood pressure and lung status. Patient did have a hx of pulmonary vein isolation ablation therapy for his atrial fibrillation in the past. They recommeded continuing Xarelto therapy for anticoagulation. They did not recommend proceeding with cardioversion d/t the patient's respiratory status. He had an Echocardiogram showing some left atrial enlargement along with some ventricular enlargement. His ejection fraction of 45% was consistent with past studies. The patient was off and on BIPAP throughout his stay. He remained on a venti- mask and was unable to be weaned to nasal oxygen. He had a CXR showing some improvement but still with persistent pneumonia. His sputum showed only normal respiratory wilber. Dr. Lopez spoke with Dr. Maurer who felt the patient should be transferred to the [facility] for further c
== END 2017-06-06 20:36 | disposition short-term general hospital (02) | DRG 193 ==
LOC: ER 15:12 → 2ND 18:28 → ICU 05-27 13:52 → 2ND 05-31 12:52
PROVIDERS: Family Medicine; Nurse Practitioner Family; Admitting Provider Family Medicine; Emergency Provider General Practice; Family Provider Family Medicine; PCP Family Medicine; Visit Provider Family Medicine
DX: J18.9 Pneumonia, unspecified organism (principal); J96.01 Acute respiratory failure with hypoxia; I42.9 Cardiomyopathy, unspecified; C34.92 Malignant neoplasm of unspecified part of left bronchus or lung; I11.0 Hypertensive heart disease with heart failure; I50.9 Heart failure, unspecified; J44.0 Chronic obstructive pulmonary disease with (acute) lower respiratory infection; D63.8 Anemia in other chronic diseases classified elsewhere; J44.1 Chronic obstructive pulmonary disease with (acute) exacerbation; I48.0 Paroxysmal atrial fibrillation; E03.9 Hypothyroidism, unspecified; F41.9 Anxiety disorder, unspecified; F32.9 Major depressive disorder, single episode, unspecified; I25.10 Atherosclerotic heart disease of native coronary artery without angina pectoris; Z79.01 Long term (current) use of anticoagulants; Z79.899 Other long term (current) drug therapy; Z88.6 Allergy status to analgesic agent; Z87.891 Personal history of nicotine dependence; Z80.9 Family history of malignant neoplasm, unspecified; Z82.49 Family history of ischemic heart disease and other diseases of the circulatory system
CPT/HCPCS: 36415; 71045; 71046; 80048; 80053; 80162; 80202; 82803; 83605; 85007; 85025; 87040; 87070; 87205; 93005; 93306; 94640; 94660; 94760; 94761; 96365; 97162; 99284; J1956; J2543; J3370